=== PATIENT | female | born 1955 | race Caucasian/White ===

== ENCOUNTER 2019-05-20 17:13 | Emergency (ER) | payer MEDICARE, MEDICAID ==
[~2019-05-20] VITALS: Ht 152.4 cm; Wt 90.9 kg
[2019-05-20 17:21] VITALS: Ht 152.4 cm; Wt 90.9 kg
[2019-05-20] MEDS ORDERED: NEURONTIN600 MG PO (17:22)
[2019-05-20] MEDS ORDERED: CLARITIN 10 MG10 MG PO (17:23)
[2019-05-20] MEDS ORDERED: FUROSEMIDE40 MG PO (17:23)
[2019-05-20] MEDS ORDERED: ZYPREXA10 MG PO (17:23)
[2019-05-20] MEDS ORDERED: TOPROL XL100 MG PO (17:24)
[2019-05-20] MEDS ORDERED: BACLOFEN20 M1 (17:24)
[2019-05-20] MEDS ORDERED: SYNTHROID125 MCG PO (17:24)
[2019-05-20] MEDS ORDERED: NORVASC10 MG PO (17:25)
[2019-05-20] MEDS ORDERED: ELIQUIS5 MG PO (17:25)
[2019-05-20] MEDS ORDERED: METOPROLOL-HCT1 EACH PO (17:25)
[2019-05-20 18:16] LABS: APPEARANCE CLEAR (CLEAR); BILIRUBIN NEGATIVE (NEGATIVE); COLOR YELLOW (YELLOW); GLUCOSE NEGATIVE (NEGATIVE); KETONE NEGATIVE (NEGATIVE); NITRITE NEGATIVE (NEGATIVE); PROTEIN TRACE mg/dL (NEGATIVE); UROBILINOGEN NORMAL (NORMAL)
[2019-05-20 18:18] LABS: BASOPHILS 0.6 % (0-2); EOSINOPHILS 2.4 % (0-7); HEMOGLOBIN 13.8 g/dL (12-16); IMMATURE GRANULOCYTES 0.2 % (0-5); LYMPHOCYTES 18.8 % (15-50); MCH 27.7 pg (26.0-34.0); MCHC 31.4 g/dL (31.0-37.0); MCV 88.4 fL (80.0-100.0); MEAN PLATELET VOLUME 10.4 fL (7.4-10.4); MONOCYTES 10.9 % (2-11); NEUTROPHILS 67.1 % (40-80); PLATELET COUNT 204 10x3/uL (130-400); RBC 4.98 10x6/uL (4.00-5.40); RDW 14.4 % (11.5-14.5); WBC 8.8 10x3/uL (4.8-10.8)
[2019-05-20 18:19] LABS: UDS - AMPHET NEGATIVE QUAL (NEGATIVE); UDS - BARB NEGATIVE QUAL (NEGATIVE); UDS - BENZO NEGATIVE QUAL (NEGATIVE); UDS - COCAINE NEGATIVE QUAL (NEGATIVE); UDS - OPIATE NEGATIVE QUAL (NEGATIVE); UDS - PCP NEGATIVE QUAL (NEGATIVE); UDS - THC POSITIVE QUAL (NEGATIVE)
[2019-05-20 18:33] LABS: APTT 25.9 SECONDS (22.8-39.4); INR 1.17 (0.85-1.17); PROTIME 14.4 SECONDS (11.6-15.0)
[2019-05-20 18:55] LABS: ALBUMIN 3.5 g/dL (3.4-5.0); ALKALINE PHOSPHATASE 98 U/L (46-116); ALT (SGPT) 34 U/L (10-68); BILIRUBIN - TOTAL 0.31 mg/dL (0.2-1.3); CALC OSMOLALITY 287 mosm/kg (275-300); CALCIUM 8.9 mg/dL (8.5-10.1); CARBON DIOXIDE 31.6 mmol/L (21.0-32.0); CHLORIDE - SERUM 105 mmol/L (98-107); CKMB 0.6 U/L (0.0-3.6); CREATINE KINASE 58 UL (21-215); CREATININE - SERUM 1.3 mg/dL (0.6-1.3); GLUCOSE 106 mg/dL (74-106); MAGNESIUM - SERUM 2.1 mg/dL (1.8-2.4); POTASSIUM - SERUM 4.6 mmol/L (3.5-5.1); PROTEIN - SERUM 7.5 g/dL (6.4-8.2); SODIUM 144 mmol/L (136-145); TROPONIN-I < 0.017 ng/mL (0.000-0.060); UREA NITROGEN 15 mg/dL (7-18); eGFR NON AFRICAN AMERICAN 44 mL/min (90-120)
[2019-05-20 20:19] VITALS: BP 147/70
== END 2019-05-20 21:31 | disposition other institution (70) ==
LOC: EDSEX 17:13 → D.ER 17:13
PROVIDERS: Family Medicine
DX: R41.82 Altered mental status, unspecified (principal)

== ENCOUNTER 2020-02-11 03:29 | Emergency (ER) | payer MEDICARE, MEDICAID ==
[~2020-02-11] VITALS: Ht 172.7 cm; Wt 77.3 kg
[~2020-02-11 03:29] MED LIST: BACLOFEN20 M1; CLARITIN 10 MG10 MG PO; ELIQUIS5 MG PO; FUROSEMIDE40 MG PO; METOPROLOL-HCT1 EACH PO; NEURONTIN600 MG PO; NORVASC10 MG PO; SYNTHROID125 MCG PO; TOPROL XL100 MG PO; ZYPREXA10 MG PO
[2020-02-11 03:30] VITALS: Ht 172.7 cm; Wt 77.3 kg
[2020-02-11 03:55] LABS: BILIRUBIN NEGATIVE (NEGATIVE); GLUCOSE NEGATIVE (NEGATIVE); KETONE SMALL mg/dL (NEGATIVE); NITRITE NEGATIVE (NEGATIVE); SPECIFIC GRAVITY 1.015 (1.005-1.020); UROBILINOGEN NORMAL (NORMAL); WHITE CELLS - URINE 0-5 /hpf (NEGATIVE)
[2020-02-11 03:56] LABS: RED CELLS - URINE 0-5 /hpf (0-5)
[2020-02-11 04:01] LABS: UDS - AMPHET NEGATIVE QUAL (NEGATIVE); UDS - BARB NEGATIVE QUAL (NEGATIVE); UDS - BENZO NEGATIVE QUAL (NEGATIVE); UDS - COCAINE NEGATIVE QUAL (NEGATIVE); UDS - OPIATE POSITIVE QUAL (NEGATIVE); UDS - PCP NEGATIVE QUAL (NEGATIVE); UDS - THC POSITIVE QUAL (NEGATIVE)
[2020-02-11 04:27] LABS: BASOPHILS 0.6 % (0-2); EOSINOPHILS 2.8 % (0-7); HEMATOCRIT 40.6 % (36.0-48.0); HEMOGLOBIN 11.6 g/dL (12-16); IMMATURE GRANULOCYTES 0.1 % (0-5); LYMPHOCYTES 11.6 % (15-50); MCH 24.5 pg (26.0-34.0); MCHC 28.6 g/dL (31.0-37.0); MCV 85.8 fL (80.0-100.0); MEAN PLATELET VOLUME 10.1 fL (7.4-10.4); MONOCYTES 12.3 % (2-11); NEUTROPHILS 72.6 % (40-80); PLATELET COUNT 210 10x3/uL (130-400); RBC 4.73 10x6/uL (4.00-5.40); RDW 16.1 % (11.5-14.5); WBC 7.1 10x3/uL (4.8-10.8)
[2020-02-11 04:36] LABS: APTT 32.4 SECONDS (22.8-39.4); INR 1.67 (0.85-1.17); PROTIME 19.5 SECONDS (11.6-15.0)
[2020-02-11 04:51] LABS: BILIRUBIN - TOTAL 0.73 mg/dL (0.2-1.3); CALC OSMOLALITY 271 mosm/kg (275-300); CALCIUM 8.3 mg/dL (8.5-10.1); CHLORIDE - SERUM 98 mmol/L (98-107); CKMB 62.5 U/L (0.0-3.6); CREATININE - SERUM 1.7 mg/dL (0.6-1.3); GLUCOSE 108 mg/dL (74-106); PROTEIN - SERUM 7.2 g/dL (6.4-8.2); SODIUM 133 mmol/L (136-145); THYROID STIMULATING HORMONE 0.73 uIU/mL (0.36-3.74); UREA NITROGEN 27 mg/dL (7-18); eGFR NON AFRICAN AMERICAN 32 mL/min (90-120)
[2020-02-11 04:58] LABS: ALKALINE PHOSPHATASE 110 U/L (30-120); ALT (SGPT) 46 U/L (10-68); CREATINE KINASE 5093 UL (21-215); POTASSIUM - SERUM 4.4 mmol/L (3.5-5.1); TROPONIN-I < 0.017 ng/mL (0.000-0.060)
[2020-02-11 09:16] VITALS: BP 132/68
[2020-02-12] MEDS ORDERED: BENADRYL25 MG PO (15:56)
== END 2020-02-11 09:17 | disposition home or self-care (01) ==
LOC: D.ER 03:29
PROVIDERS: Family Medicine
DX: N17.9 Acute kidney failure, unspecified (principal); E86.0 Dehydration; T50.905A Adverse effect of unspecified drugs, medicaments and biological substances, initial encounter; M62.82 Rhabdomyolysis

== ENCOUNTER 2020-02-12 12:31 | Inpatient (IN) | payer MEDICARE, MEDICAID ==
[~2020-02-12] VITALS: Ht 172.7 cm; Wt 88.5 kg
[~2020-02-12 12:31] MED LIST changes: -BACLOFEN20 M1; +BACLOFEN20 M1 PO
[2020-02-12 13:15] VITALS: BP 138/90
[2020-02-12 14:12] LABS: UDS - AMPHET NEGATIVE QUAL (NEGATIVE); UDS - BARB NEGATIVE QUAL (NEGATIVE); UDS - BENZO NEGATIVE QUAL (NEGATIVE); UDS - COCAINE NEGATIVE QUAL (NEGATIVE); UDS - OPIATE POSITIVE QUAL (NEGATIVE); UDS - PCP NEGATIVE QUAL (NEGATIVE); UDS - THC NEGATIVE QUAL (NEGATIVE)
[2020-02-12 14:46] LABS: BASOPHILS 0.2 % (0-2); EOSINOPHILS 0.1 % (0-7); HEMOGLOBIN 12.1 g/dL (12-16); IMMATURE GRANULOCYTES 0.2 % (0-5); LYMPHOCYTES 12.4 % (15-50); MCH 24.7 pg (26.0-34.0); MCHC 28.8 g/dL (31.0-37.0); MCV 85.7 fL (80.0-100.0); MEAN PLATELET VOLUME 10.3 fL (7.4-10.4); MONOCYTES 13.1 % (2-11); PLATELET COUNT 218 10x3/uL (130-400); RDW 16.6 % (11.5-14.5); WBC 8.7 10x3/uL (4.8-10.8)
[2020-02-12 14:53] LABS: INR 1.41 (0.85-1.17); PROTIME 17.1 SECONDS (11.6-15.0)
[2020-02-12 14:54] LABS: CALC OSMOLALITY 284 mosm/kg (275-300); CALCIUM 8.4 mg/dL (8.5-10.1); CARBON DIOXIDE 31.9 mmol/L (21.0-32.0); CHLORIDE - SERUM 102 mmol/L (98-107); GLUCOSE 109 mg/dL (74-106); POTASSIUM - SERUM 4.1 mmol/L (3.5-5.1); SODIUM 140 mmol/L (136-145); UREA NITROGEN 27 mg/dL (7-18); eGFR NON AFRICAN AMERICAN 18 mL/min (90-120)
[2020-02-12 15:06] LABS: CREATININE - SERUM 2.8 mg/dL (0.6-1.3)
[2020-02-12 15:28] LABS: ALBUMIN 3.1 g/dL (3.4-5.0); ALKALINE PHOSPHATASE 116 U/L (30-120); BILIRUBIN - TOTAL 0.59 mg/dL (0.2-1.3); PROTEIN - SERUM 7.2 g/dL (6.4-8.2)
[2020-02-12 15:32] LABS: ALT (SGPT) 410 U/L (10-68); CKMB 16.6 U/L (0.0-3.6); CREATINE KINASE 4358 UL (21-215)
[2020-02-12] MEDS ORDERED: BENADRYL25 MG PO (15:56)
[2020-02-12 16:00] VITALS: BP 177/104
[2020-02-12 16:38] VITALS: BP 159/102; BMI 29.7
[2020-02-12 20:00] VITALS: BP 154/94
--- NOTE | 2020-02-12 20:10 | NUR ---
AROUSES TO VERBAL STIMULI. CONTINUES TO APPEAR DROWSY. ANSWERS QUESTIONS APPROPRIATELY. IV TO RFA INTACT WITHOUT REDNESS OR EDEMA NOTED. O2 @ 4L PER NC ON. NO DISTRESS NOTED. SPO2 @ 96 %. SR UP X 2. CL IN REACH
[2020-02-13] VITALS: BP 160/81
--- NOTE | 2020-02-13 02:35 | NUR ---
I have reviewed this patient and I concur with the Shift Assessment completed by the Licensed Practical Nurse today this shift.
[2020-02-13 04:00] VITALS: BP 130/100
--- NOTE | 2020-02-13 08:00 | NUR ---
PT RESTING IN BED. ALERT AND ORIENTED TO PERSON AND PLACE AT THIS TIME. DENIES PAIN AT THIS TIME. IV TO RIGHT FOREARM WITH D5LR @ 100ML/HR INFUSING VIA PUMP. SITE WITHOUT REDNESS OR EDEMA. DENIES FURTHER NEEDS AT THIS TIME. CL WITHIN REACH. ENCOURAGED TO CALL WITH NEEDS. CONTINUE POC
[2020-02-13 09:05] VITALS: BP 170/88
[2020-02-13 10:18] LABS: BASOPHILS 0.5 % (0-2); EOSINOPHILS 0.9 % (0-7); HEMATOCRIT 43.3 % (36.0-48.0); HEMOGLOBIN 12.2 g/dL (12-16); IMMATURE GRANULOCYTES 0.6 % (0-5); LYMPHOCYTES 9.6 % (15-50); MCH 24.3 pg (26.0-34.0); MCHC 28.2 g/dL (31.0-37.0); MCV 86.3 fL (80.0-100.0); MEAN PLATELET VOLUME 10.2 fL (7.4-10.4); MONOCYTES 10.3 % (2-11); NEUTROPHILS 78.1 % (40-80); PLATELET COUNT 204 10x3/uL (130-400); RBC 5.02 10x6/uL (4.00-5.40); RDW 16.6 % (11.5-14.5); WBC 8.1 10x3/uL (4.8-10.8)
[2020-02-13 11:12] LABS: ALBUMIN 3.1 g/dL (3.4-5.0); ALKALINE PHOSPHATASE 111 U/L (30-120); ALT (SGPT) 411 U/L (10-68); BILIRUBIN - TOTAL 0.83 mg/dL (0.2-1.3); CALCIUM 8.7 mg/dL (8.5-10.1); CARBON DIOXIDE 36.3 mmol/L (21.0-32.0); CHLORIDE - SERUM 100 mmol/L (98-107); GLUCOSE 119 mg/dL (74-106); MAGNESIUM - SERUM 1.8 mg/dL (1.8-2.4); PROTEIN - SERUM 7.4 g/dL (6.4-8.2); SODIUM 143 mmol/L (136-145)
[2020-02-13 11:13] LABS: CALC OSMOLALITY 286 mosm/kg (275-300); CREATINE KINASE 4533 UL (21-215); CREATININE - SERUM 1.4 mg/dL (0.6-1.3); POTASSIUM - SERUM 3.1 mmol/L (3.5-5.1); UREA NITROGEN 15 mg/dL (7-18); eGFR NON AFRICAN AMERICAN 40 mL/min (90-120)
[2020-02-13 11:14] LABS: CKMB 6.5 U/L (0.0-3.6)
[2020-02-13 12:32] VITALS: BMI 29.6
[2020-02-13 12:54] VITALS: BP 169/84
[2020-02-13 16:36] VITALS: BP 176/88
--- NOTE | 2020-02-13 20:00 | NUR ---
LYING IN BED. YELLS OUT TO PEOPLE WALKING BY IN HALLWAY. DOESNT USE CALL LIGHT FOR ASSISTANCE. ORIENTED TO SELF ONLY. CONFUSED. JOSIAH ALARM ON. PUREWICK CATH IN PLACE AND DRAINING CLEAR YELLOW URINE. RUE IS RED AND SWOLLEN. GEN EDEMA NOTED. C/O PAIN IN RT HAND 6 ON PAIN SCALE. BBS EXP WHEEZES. O2 @ 4L/NC. TELEMETRY SHOWS SR WITH RATE OF 85. WEAKNESS NOTED TO RUE. D5LR @ 100 MLHR INFUSING IN RT FOREARM. TALKS NONSTOP. SPEECH DIFF TO UNDERSTAND AT TIMES. SR ELEVATED X2. CL IN REACH.
[2020-02-13 20:34] VITALS: BP 162/91
--- NOTE | 2020-02-13 23:54 | NUR ---
TYLENOL GIVEN AT THIS TIME FOR C/O PAIN IN RT FOOT RATING 10. CL IN REACH.
[2020-02-14 00:45] VITALS: BP 163/89
--- NOTE | 2020-02-14 01:07 | NUR ---
LYING IN BED TALKING TO SELF OR PEOPLE NOT PRESENT. HASNT SLEPT TONIGHT. CONFUSED. JOSIAH ALARM ON. NO DISTRESS. SR ELEVATED X2. CL IN REACH.
--- NOTE | 2020-02-14 02:58 | NUR ---
RESTING IN BED WITH EYES CLOSED. RESP NONLABORED. NO DISTRESS. JOSIAH ALARM ON. CL IN REACH.
[2020-02-14 03:03] LABS: BILIRUBIN NEGATIVE (NEGATIVE); GLUCOSE NEGATIVE (NEGATIVE); KETONE NEGATIVE (NEGATIVE); NITRITE NEGATIVE (NEGATIVE); SPECIFIC GRAVITY 1.005 (1.005-1.020); UROBILINOGEN NORMAL (NORMAL)
[2020-02-14 05:36] LABS: BASOPHILS 0.6 % (0-2); EOSINOPHILS 3.4 % (0-7); HEMATOCRIT 41.8 % (36.0-48.0); HEMOGLOBIN 11.7 g/dL (12-16); IMMATURE GRANULOCYTES 0.3 % (0-5); MCH 24.1 pg (26.0-34.0); MCV 86.2 fL (80.0-100.0); MEAN PLATELET VOLUME 10.4 fL (7.4-10.4); MONOCYTES 13.4 % (2-11); NEUTROPHILS 67.3 % (40-80); PLATELET COUNT 220 10x3/uL (130-400); RBC 4.85 10x6/uL (4.00-5.40); RDW 16.9 % (11.5-14.5); WBC 7.1 10x3/uL (4.8-10.8)
[2020-02-14 05:57] VITALS: BP 171/90
[2020-02-14 06:05] LABS: ALBUMIN 2.8 g/dL (3.4-5.0); ALKALINE PHOSPHATASE 101 U/L (30-120); BILIRUBIN - TOTAL 0.99 mg/dL (0.2-1.3); CALCIUM 8.2 mg/dL (8.5-10.1); CARBON DIOXIDE 35.2 mmol/L (21.0-32.0); CHLORIDE - SERUM 98 mmol/L (98-107); GLUCOSE 102 mg/dL (74-106); MAGNESIUM - SERUM 1.6 mg/dL (1.8-2.4); PROTEIN - SERUM 6.5 g/dL (6.4-8.2); SODIUM 141 mmol/L (136-145)
[2020-02-14 06:08] LABS: ALT (SGPT) 301 U/L (10-68); CALC OSMOLALITY 279 mosm/kg (275-300); CREATININE - SERUM 0.8 mg/dL (0.6-1.3); POTASSIUM - SERUM 3.8 mmol/L (3.5-5.1); UREA NITROGEN 10 mg/dL (7-18); eGFR NON AFRICAN AMERICAN 77 mL/min (90-120)
[2020-02-14 09:18] VITALS: BP 155/89
--- NOTE | 2020-02-14 10:36 | NUR ---
I have reviewed this patient and I concur with the Shift Assessment completed by the Licensed Practical Nurse today this shift.
[2020-02-14 13:21] VITALS: BP 156/87
--- NOTE | 2020-02-14 15:53 | NUR ---
OT NOTE: PT COMPLETED SUPINE TO SIT WITH MAX A. PT COMPLETED RUE AAROM TOLERATED. PT COMPLETED EOB SITTING WITH MIN A. PT COMPLETED FACE HYGIENE WITH SET UP. [phone] THANK YOU,RUBI JOSEPH
[2020-02-14 16:44] VITALS: BP 163/84
--- NOTE | 2020-02-14 19:25 | NUR ---
LYING IN BED TALKING TO SELF. YELLING OUT TO PEOPLE WALKING BY. CONFUSED. ALERT AND ORIENTED TO SELF ONLY. RESP IRREG, SLIGHTLY LABORED. TAKES O2 OFF. O2 @ 4L/NC. TELEMETRY SHOWS 77. PUREWICK CATH IN PLACE AND DRAINING DARK CLEAR YELLOW URINE. ABD IS DISTENDED. EDEMA NOTED TO RUE AND BLE. D5LR @ 100 MLHR INFUSING IN RT ARM WHICH IS ELEVATED ON PILLOW. JOSIAH ALARM ON FOR PT SAFETY. GEN WEAKNESS NOTED. RUE IS VERY WEAK. SR ELEVATED X2. CL IN REACH.
[2020-02-14 20:54] VITALS: BP 156/85
[2020-02-15 00:02] VITALS: BP 164/97
--- NOTE | 2020-02-15 02:03 | NUR ---
AWAKE. LYING IN BED WATCHING TV. CONFUSED BUT COOPERATIVE. NO DISTRESS. CL IN REACH. JOSIAH ALARM ON.
--- NOTE | 2020-02-15 02:54 | NUR ---
CONFUSED. YELLING OUT. "SOMEBODY HELP ME." REPORTS SHE NEEDS TO URINATE. ATTEMPTED TO EXPLAIN THAT SHE HAS PUREWICK. CL IN REACH. JOSIAH ALARM ON.
[2020-02-15 04:45] VITALS: BP 175/99
[2020-02-15 05:04] LABS: BASOPHILS 0.4 % (0-2); EOSINOPHILS 6.6 % (0-7); HEMATOCRIT 44.5 % (36.0-48.0); HEMOGLOBIN 12.7 g/dL (12-16); IMMATURE GRANULOCYTES 0.3 % (0-5); LYMPHOCYTES 11.4 % (15-50); MCH 24.4 pg (26.0-34.0); MCHC 28.5 g/dL (31.0-37.0); MCV 85.4 fL (80.0-100.0); MEAN PLATELET VOLUME 10.5 fL (7.4-10.4); MONOCYTES 11.4 % (2-11); NEUTROPHILS 69.9 % (40-80); PLATELET COUNT 217 10x3/uL (130-400); RBC 5.21 10x6/uL (4.00-5.40); RDW 16.9 % (11.5-14.5); WBC 6.7 10x3/uL (4.8-10.8)
[2020-02-15 05:30] LABS: ALBUMIN 2.9 g/dL (3.4-5.0); ANION GAP 8.1 mmol/L (8-16); CALCIUM 8.6 mg/dL (8.5-10.1); CARBON DIOXIDE 36.3 mmol/L (21.0-32.0); MAGNESIUM - SERUM 1.9 mg/dL (1.8-2.4); POTASSIUM - SERUM 3.4 mmol/L (3.5-5.1); PROTEIN - SERUM 7.3 g/dL (6.4-8.2)
--- NOTE | 2020-02-15 08:33 | NUR ---
PATIENT AWAKE AND ALERT. ORIENTED X 3. UNSURE OF SITUATION. KNOWS SISTERS NAMES AND STATES THAT I CAN SHARE INFORMATION WITH THEM. KNOWS THE PRESIDENT. CL IN REACH. TM
[2020-02-15 08:54] VITALS: BP 171/98
[2020-02-15 11:37] LABS: CREATINE KINASE 921 UL (21-215)
[2020-02-15 11:41] LABS: CKMB 1.1 U/L (0.0-3.6)
[2020-02-15 13:48] VITALS: BP 175/99
--- NOTE | 2020-02-15 13:54 | NUR ---
OT NOTE: PT DOING MUCH BETTER TODAY. BED MOB WITH MIN/MOD ASSIST WITH EXT TIME AND SUPPORT FOR R HAND. EDEMA IN R UE MUCH IMPROVED TODAY. PT SHOWING INCREASED MOVEMENT IN R UE, MADHURI FINGERS. PERFORMED SITTING BALANCE ON EOB WITHOUT ASSIST; PERFORMED WT BEARING ACT WITH MIN ASSIST FOR R UE; SIT TO STAND WITH WALKER AND MIN ASSIST X 2; ABLE TO SIDE STEP TO L AND R WITH ASSIST FOR WALKER MGMT, ASSIST FOR KEEPING R HAND IN PLACE, AND ASSIST FOR BALANCE. ABLE TO WASH FACE WITH SET UP; FEEDING WITH SET UP WITH POOR APPETITE. BED MOB BACK TO BED WITH MOD ASSIST. ANASTACIO DELATORRE, OTR/L [phone]
--- NOTE | 2020-02-15 14:24 | NUR ---
OT NOTE: PT COMPLETED SUPINE TO SIT WITH MOD A. PT COMPLETED STANDING WITH MIN/MOD A. PT COMPLETED LB HYGIENE WITH MAX A. PT REQUIRED MIN A WITH HAIR GROOMING AT EOB. [phone] THANK YOU,RUBI JOSEPH
[2020-02-15 17:28] VITALS: BP 165/103
[2020-02-15 20:00] VITALS: BP 177/100
[2020-02-16 04:00] VITALS: BP 173/102
[2020-02-16 04:36] LABS: BASOPHILS 0.5 % (0-2); EOSINOPHILS 6.3 % (0-7); HEMATOCRIT 45.1 % (36.0-48.0); HEMOGLOBIN 12.8 g/dL (12-16); IMMATURE GRANULOCYTES 0.6 % (0-5); LYMPHOCYTES 10.3 % (15-50); MCHC 28.4 g/dL (31.0-37.0); MCV 84.5 fL (80.0-100.0); MEAN PLATELET VOLUME 10.2 fL (7.4-10.4); MONOCYTES 12.7 % (2-11); NEUTROPHILS 69.6 % (40-80); PLATELET COUNT 250 10x3/uL (130-400); RBC 5.34 10x6/uL (4.00-5.40); RDW 16.8 % (11.5-14.5)
[2020-02-16 04:50] LABS: WBC 8.6 10x3/uL (4.8-10.8)
[2020-02-16 05:18] LABS: ALBUMIN 2.8 g/dL (3.4-5.0); BILIRUBIN - TOTAL 1.02 mg/dL (0.2-1.3); CALCIUM 8.9 mg/dL (8.5-10.1); CARBON DIOXIDE 33.9 mmol/L (21.0-32.0); MAGNESIUM - SERUM 1.8 mg/dL (1.8-2.4); PROTEIN - SERUM 7.2 g/dL (6.4-8.2)
[2020-02-16 05:22] LABS: ANION GAP 9.7 mmol/L (8-16); POTASSIUM - SERUM 3.6 mmol/L (3.5-5.1)
[2020-02-16 09:31] VITALS: BP 174/109
[2020-02-16 11:56] LABS: CREATINE KINASE 544 UL (21-215)
[2020-02-16 11:57] LABS: CKMB 1.7 U/L (0.0-3.6)
--- NOTE | 2020-02-16 12:40 | NUR ---
OT NOTE: PT PERFORMED WELL TODAY. MIN/MOD ASSIST FOR ROLLING SIDE TO SIDE; MIN ASSIST AND EXT TIME FOR SUPINE TO SIT; MAX ASSIST FOR TOILET HYGIENE..PT INCONT OF BOWEL. REMOVED PUREWIK AND PLACED BRIEF ON PT SO THAT SHE COULD SIT UP IN CHAIR; TRANSFER WITH WALKER WITH MOD ASSIST AND 2 (MAX ASSIST TO KEEP R HAND ON WALKER)..INCREASED EDEMA NOTED IN R HAND, HOWEVER, PROBABLY DUE TO ARM HANGING OFF BED UPON FIRST ENTERING ROOM.. WHILE UP IN CHAIR, PT EDUCATED ON ROM EXS FOR R UE AND B LES. ANASTACIO DELATORRE, OTR/L [phone]
[2020-02-16 13:08] LABS: INR 1.5 (0.85-1.17); PROTIME 17.9 SECONDS (11.6-15.0)
[2020-02-16 13:19] LABS: APTT 31.5 SECONDS (22.8-39.4)
[2020-02-16 13:29] VITALS: BP 172/92
--- NOTE | 2020-02-16 14:25 | NUR ---
REHAB PRESCREENING Rehab referral received and chart reviewed. This patient is very low level at this time. Rehab will continue to follow for progression with therapy in order to assess admission criteria. Thank you for this referral! Chayito Conley, [facility] Rehab PD
[2020-02-16 16:03] VITALS: Ht 172.7 cm; Wt 88.5 kg
--- NOTE | 2020-02-16 17:05 | NUR ---
ATTEMPT TO REACH CHAN WITH SENIOR HELP TO VERIFY PATIENTS MEDS. ALSO TRIED TO VERIFY MEDICATIONS WITH DR [facility] AT [phone]. PATIENT DOES NOT KNOW HER MEDICATIONS.
[2020-02-16 17:50] VITALS: BP 123/105
[2020-02-16 20:00] VITALS: BP 148/95
[2020-02-17] VITALS: BP 156/89
[2020-02-17 04:00] VITALS: BP 171/95
[2020-02-17 04:58] LABS: HEMATOCRIT 53.9 % (36.0-48.0); MCH 24.5 pg (26.0-34.0); MCHC 28.9 g/dL (31.0-37.0); MCV 84.7 fL (80.0-100.0); RBC 6.36 10x6/uL (4.00-5.40); RDW 18.7 % (11.5-14.5); WBC 7.1 10x3/uL (4.8-10.8)
[2020-02-17 05:12] LABS: HEMOGLOBIN 15.6 g/dL (12-16); PLATELET COUNT 425 10x3/uL (130-400)
[2020-02-17 05:29] LABS: ALBUMIN 3.1 g/dL (3.4-5.0); ALKALINE PHOSPHATASE 104 U/L (30-120); ALT (SGPT) 138 U/L (10-68); BILIRUBIN - TOTAL 1.19 mg/dL (0.2-1.3); CALC OSMOLALITY 270 mosm/kg (275-300); CALCIUM 8.8 mg/dL (8.5-10.1); CARBON DIOXIDE 30.1 mmol/L (21.0-32.0); CHLORIDE - SERUM 97 mmol/L (98-107); GLUCOSE 96 mg/dL (74-106); MAGNESIUM - SERUM 1.9 mg/dL (1.8-2.4); PROTEIN - SERUM 7.5 g/dL (6.4-8.2); SODIUM 136 mmol/L (136-145); UREA NITROGEN 11 mg/dL (7-18); eGFR NON AFRICAN AMERICAN 59 mL/min (90-120)
[2020-02-17 05:31] LABS: CREATINE KINASE 321 UL (21-215); POTASSIUM - SERUM 4.8 mmol/L (3.5-5.1)
[2020-02-17 05:37] LABS: CKMB 1.1 U/L (0.0-3.6)
--- NOTE | 2020-02-17 07:50 | NUR ---
PT RESTING QUIETLY IN BED. O2 @ 2L NC IN PLACE. DENIES PAIN AT THIS TIME. NO IV ACCESS AT THIS TIME. WILL CONTACT VASCULAR NURSING FOR IV PLACEMENT. PT IS INCONTINENT OF URINE. DENIES FURTHER NEEDS AT THIS TIME. CL WITHIN REACH. ENCOURAGED TO CALL WITH NEEDS. CONTINUE POC
[2020-02-17 07:59] VITALS: BP 170/93
[2020-02-17] MEDS ORDERED: METOPROLOL TART50 MG PO (10:01)
[2020-02-17] MEDS ORDERED: PEPCID AC20 MG PO (10:06)
[2020-02-17] MEDS ORDERED: FOLIC ACID1 MG PO (10:06)
[2020-02-17] MEDS ORDERED: SEROQUEL100 MG PO (10:08)
[2020-02-17 10:42] LABS: EOSINOPHILS 5 % (0-7); LYMPHOCYTES 19 % (15-50); MONOCYTES 7 % (2-11); NEUTROPHILS 68 % (40-80); PLATELET ESTIMATE INCREASED; ROULEAUX OCC
--- NOTE | 2020-02-17 11:12 | NUR ---
SPOKE WITH CHAN SALINAS APN REGARDING LOSS OF IV ACCESS. SHE STATES OK TO LEAVE IV OUT
[2020-02-17 12:02] VITALS: BP 160/97
--- NOTE | 2020-02-17 14:19 | NUR ---
OT NOTE: PT COMPLETED BED MOB TASKS WITH MIN/MOD A. PT REQUIRED MAX A FOR RUE MANAGEMENT DURING BED TO CHAIR TRANSFER. PT REQUIRED MAX A WITH LB HYGIENE . (PM) PT COMPLETED RUE AAROM TOLERATED. RUE POSITIONING TO DECREASE EDEMA. PT REQUIRED MAX A WITH LB HYGIENE TASKS. PT IS COOPERATIVE. [phone]
[2020-02-17 15:39] VITALS: BP 163/97
--- NOTE | 2020-02-17 19:40 | NUR ---
LAYING IN BED WITH HOB ELEVATED. ALERT AND ORIENTED TO SELF. CONFUSED. INCONT OF B/B. PERICARE PERFORMED. PUREWICK APPLIED. NO IV ACCESS. RUE IS VERY WEAK, ALMOST FLACCID AND SWOLLEN. ABD IS DISTENDED. JOSIAH ALARM ON FOR PT SAFETY. RESP EVEN AND NONLABORED. O2 @ 2LNC. NO DISTRESS. DENIES PAIN. SR ELEVATED X2. CL IN REACH.
[2020-02-17 20:00] VITALS: BP 156/95
[2020-02-18] VITALS: BP 168/101
--- NOTE | 2020-02-18 01:12 | NUR ---
RESTING QUIETLY WITH EYES CLOSED. RESP NONLABORED. O2 @ 2L/NC. NO DISTRESS. HAS BEEN RESTING WELL SO FAR THIS SHIFT. SR ELEVATED X2. CL IN REACH. JOSIAH ALARM ON.
[2020-02-18 04:00] VITALS: BP 159/99
[2020-02-18 05:33] LABS: BASOPHILS 0.3 % (0-2); EOSINOPHILS 6.1 % (0-7); HEMATOCRIT 44.2 % (36.0-48.0); HEMOGLOBIN 12.9 g/dL (12-16); IMMATURE GRANULOCYTES 0.1 % (0-5); LYMPHOCYTES 11.7 % (15-50); MCH 24.6 pg (26.0-34.0); MCHC 29.2 g/dL (31.0-37.0); MCV 84.2 fL (80.0-100.0); MEAN PLATELET VOLUME 10.3 fL (7.4-10.4); MONOCYTES 11.7 % (2-11); NEUTROPHILS 70.1 % (40-80); RBC 5.25 10x6/uL (4.00-5.40); RDW 17.4 % (11.5-14.5)
[2020-02-18 05:38] LABS: PLATELET COUNT 247 10x3/uL (130-400); WBC 9.3 10x3/uL (4.8-10.8)
[2020-02-18 05:55] LABS: BILIRUBIN - TOTAL 0.83 mg/dL (0.2-1.3); CALCIUM 8.6 mg/dL (8.5-10.1); CARBON DIOXIDE 32.8 mmol/L (21.0-32.0); MAGNESIUM - SERUM 2.2 mg/dL (1.8-2.4); PROTEIN - SERUM 6.8 g/dL (6.4-8.2)
[2020-02-18 05:56] LABS: ANION GAP 10.8 mmol/L (8-16); CREATININE - SERUM 1.4 mg/dL (0.6-1.3); POTASSIUM - SERUM 3.6 mmol/L (3.5-5.1)
--- NOTE | 2020-02-18 07:45 | NUR ---
PT SITTING UP IN BED WATCHING TV. O2 @ 2L NC IN PLACE. PT DENIES PAIN AT THIS TIME. RIGHT SIDED WEAKNESS NOTED. DENIES FURTHER NEEDS AT THIS TIME. CL WITHIN REACH. ENCOURAGED TO CALL WITH NEEDS. CONTINUE POC
[2020-02-18 08:00] VITALS: BP 154/92
[2020-02-18 12:05] VITALS: BP 162/92
[2020-02-18 16:00] VITALS: BP 161/98
--- NOTE | 2020-02-18 19:00 | NUR ---
BEDSIDE REPORT RECEIVED AND CARE OF PT ASSUMED. PT LYING IN LOW ZAZUETA'S POSITION. NO IV AT THIS TIME. O2 IN USE VIA NC AT 2L. BED ALARM IN USE. WILL MONITOR FOR NEEDS.
--- NOTE | 2020-02-18 19:28 | NUR ---
HS MEDICATION GIVEN TO INCLUDE TYLENOL PO PER REQUEST, PER PRN ORDER. WILL CONTINUE TO MONITOR FOR NEEDS.
[2020-02-18 19:43] VITALS: BP 151/93
[2020-02-19] VITALS: BP 163/91
--- NOTE | 2020-02-19 02:00 | NUR ---
PT BATHED AND ALL LINENS AND GOWN CHANGED.
--- NOTE | 2020-02-19 03:30 | NUR ---
PT HAS NOT VOIDED THIS SHIFT AND HAS HAD NO OUTPUT VIA PUREWICK EXTERNAL CATHETER. BLADDER SCAN WAS INCONCLUSIVE, BUT ABDOMEN IS DISTENDED AND PT REPORTS FEELING LIKE SHE NEEDS TO URINATE, BUT UNABLE TO. IN AND OUT CATH PERFORMED AND YEILDED 3100 MLS OF YELLOW URINE...CLAMPED EVERY 500 ML FOR A FEW MINUTES. PT REPORTS FEELING MUCH BETTER AND ABDOMEN LESS DISTENDED.
--- NOTE | 2020-02-19 03:30 | NUR ---
CHANGED APPRESOLINE FROM IV TO PO PT WITHOUT IV ACCESS AT THIS TIME, AND IN NEED OF PRN HTN MEDICATION PER PRN ORDER.
--- NOTE | 2020-02-19 03:55 | NUR ---
GAVE APPRESOLINE PER PRN ORDER FOR ELEVATED BLOOD PRESSURE OF 170/97. WILL CONTINUE TO MONITOR FOR EFFECTIVENESS.
[2020-02-19 04:00] VITALS: BP 170/97
[2020-02-19 07:21] LABS: BASOPHILS 0.8 % (0-2); EOSINOPHILS 7.4 % (0-7); HEMATOCRIT 41.5 % (36.0-48.0); HEMOGLOBIN 12.1 g/dL (12-16); IMMATURE GRANULOCYTES 0.1 % (0-5); LYMPHOCYTES 14.2 % (15-50); MCH 24.4 pg (26.0-34.0); MCHC 29.2 g/dL (31.0-37.0); MCV 83.8 fL (80.0-100.0); MEAN PLATELET VOLUME 10.7 fL (7.4-10.4); MONOCYTES 11.3 % (2-11); NEUTROPHILS 66.2 % (40-80); PLATELET COUNT 213 10x3/uL (130-400); RBC 4.95 10x6/uL (4.00-5.40); RDW 17.3 % (11.5-14.5); WBC 7.3 10x3/uL (4.8-10.8)
[2020-02-19 07:38] LABS: ALBUMIN 2.6 g/dL (3.4-5.0); BILIRUBIN - TOTAL 0.83 mg/dL (0.2-1.3); CALCIUM 8.6 mg/dL (8.5-10.1); CARBON DIOXIDE 36.1 mmol/L (21.0-32.0); CREATININE - SERUM 1.4 mg/dL (0.6-1.3); POTASSIUM - SERUM 3.1 mmol/L (3.5-5.1); PROTEIN - SERUM 6.5 g/dL (6.4-8.2)
--- NOTE | 2020-02-19 07:48 | NUR ---
PT RESTING IN BED WATCHNIG TV. O2 @ 2L NC IN PLACE. PT DENIES PAIN AT THIS TIME. PT DENIES FURTHER NEEDS AT THIS TIME. CL WITHIN REACH. ENCOURAGED TO CALL WITH NEEDS. CONTINUE POC
[2020-02-19 08:03] VITALS: BP 153/84
--- NOTE | 2020-02-19 10:53 | NUR ---
PT SITTING UP IN CHAIR AT BEDSIDE. NO ACUTE DISTRESS NOTED AT THIS TIME. TALKING ON PHONE WITH FAMILY. JOSIAH CHAIR ALARM IN PLACE AND ON. DENIES FURTHER NEEDS AT THIS TIME. CL WITHIN REACH. ENCOURAGED TO CALL WITH NEEDS
--- NOTE | 2020-02-19 12:45 | NUR ---
ASSISTED PT FROM BR TO BED. LARGE SOFT FORMED BM NOTED. PT REQUIRE ASSIST X [address]ER. O2 IN PLACE. PT [place]UBH[place] WELL. DENIES FURTHER NEEDS AT THIS TIME. CL WITHIN REACH. ENCOURAGED TO CALL WITH NEEDS.
[2020-02-19 13:03] VITALS: BP 149/87
--- NOTE | 2020-02-19 14:30 | NUR ---
PT RESTING IN BED WATCHING TV. PT VOIDED AT THIS TIME. 600ML URINE DRAINED THROUGH PUREWICK AT THIS TIME. PT DENIES FURTHER NEEDS AT THIS TIME. CL WITHIN REACH. ENCOURAGED TO CALL WITH NEEDS.
[2020-02-19 17:32] VITALS: BP 150/87
--- NOTE | 2020-02-19 19:00 | NUR ---
BEDSIDE REPORT RECEIVED AND CARE OF PT ASSUMED. PT LYING IN MID ZAZUETA'S POSITION WITH EYES CLOSED. TELEMETRY IN PLACE PER ORDER. O2 IN USE VIA NC AT 2L. WILL MONITOR FOR NEEDS.
[2020-02-19 20:00] VITALS: BP 164/85
--- NOTE | 2020-02-19 20:47 | NUR ---
HS MEDICATIONS GIVEN TO INCLUDE TYLENOL PO PER REQUEST FOR PAIN. WILL CONTINUE TO MONITOR FOR NEEDS.
[2020-02-20] VITALS: BP 143/71
[2020-02-20 04:00] VITALS: BP 174/94
[2020-02-20 06:55] LABS: BASOPHILS 1.1 % (0-2); EOSINOPHILS 7.4 % (0-7); HEMATOCRIT 40.7 % (36.0-48.0); HEMOGLOBIN 12.1 g/dL (12-16); IMMATURE GRANULOCYTES 0.5 % (0-5); LYMPHOCYTES 15.1 % (15-50); MCH 24.5 pg (26.0-34.0); MCHC 29.7 g/dL (31.0-37.0); MCV 82.4 fL (80.0-100.0); MEAN PLATELET VOLUME 10.8 fL (7.4-10.4); MONOCYTES 9.3 % (2-11); NEUTROPHILS 66.6 % (40-80); PLATELET COUNT 239 10x3/uL (130-400); RBC 4.94 10x6/uL (4.00-5.40); RDW 17.1 % (11.5-14.5); WBC 7.9 10x3/uL (4.8-10.8)
[2020-02-20 07:27] LABS: ALBUMIN 2.8 g/dL (3.4-5.0); BILIRUBIN - TOTAL 0.96 mg/dL (0.2-1.3); CALCIUM 8.5 mg/dL (8.5-10.1); CARBON DIOXIDE 31.9 mmol/L (21.0-32.0); MAGNESIUM - SERUM 1.8 mg/dL (1.8-2.4); PROTEIN - SERUM 6.4 g/dL (6.4-8.2)
[2020-02-20 07:32] LABS: ANION GAP 12.3 mmol/L (8-16); POTASSIUM - SERUM 4.2 mmol/L (3.5-5.1)
--- NOTE | 2020-02-20 07:59 | NUR ---
SHE IS ALART, SETTING UP IN THE CHAIR. SHE IS WALKING TO THE Bathroom by herself. THE CALL LIHGT IS WITHIN REACH. HER RIGHT HAND IS SWOLLEN, IT IS ELEVATED ON A PILLOW.
[2020-02-20 08:02] VITALS: BP 149/84
--- NOTE | 2020-02-20 10:54 | EC ---
PATIENT:JULIO RUDOLPH ANN DATE OF SERVICE: 02/13/20 SEX: F MEDICAL RECORD: [id number] DATE OF : [birth year] LOCATION:[facility] AGE OF PATIENT: 64 ADMISSION DATE: 02/13/20 REFERRING PHYSICIAN: INTERPRETING PHYSICIAN: TSERING ARELLANO MD ECHOCARDIOGRAM REPORT ECHO CHARGES 4 ECHO COMPLETE Date: 02/16/20 CLINICAL DIAGNOSIS: DYSPNEA ECHOCARDIOGRAPHIC MEASUREMENTS (adult normal given) AC root (d.<3.7cm) 2.9 cm LV Septum d (<1.2 cm> 1.4 cm Valve Excursion 1.9 cm LV Septum (systole) 1.7 cm Left Atria (s.<4.0cm> 3.3 cm LVPW d(<1.2cm) 1.3 cm RV (d.<2.3cm) 2.6 cm LVPW (sytole) 1.5 cm LV diastole(<5.6CM) 4.4 cm MV E-F(>70mm/sec) cm LV systole 3.2 cm LVOT Diameter 1.8 cm MV exc.(>10mm) cm Est.ejection fraction (50-75%) % DOPPLER: LVIT cm/sec A 70 cm/sec E 33 cm/sec LA cm/sec RVSP 34.7 mmHg LVOT 106 cm/sec AOP1/2T m/s Asc. Ao 128 cm/sec RVOT 71 cm/sec RA cm/sec PA 84 cm/sec AV Gradient Peak 6.5 mmHg AV Mean 3.8 mmHg AV Area 2.5 cm MV Gradient Peak 3.6 mmHg MV Mean 1.9 mmHg MV Area cm COMMENTS: Union Organiser: Sly LOPEZ Pumping Supervisor: 3 Dr. Palencia TAPE# PACS Pericardial Effusion N DATE OF SERVICE: Adequate 2D, color flow imaging, spectral Doppler, and M-Mode. No LVH. LV internal dimensions are normal. Wall motion is normal. EF is greater than or equal to 55%. Aortic valve is tricuspid. No evidence of stenosis by Doppler interrogation. There is trivial AI with color flow imaging. Left atrium is normal. Mitral valve shows no prolapse. Trace MR. Right-sided chambers are grossly normal. Trace TR. ECHOCARDIOGRAM REPORT [id number] JULIO RUDOLPH ANN TRANSINT:[id number] Voice Confirmation ID: [id number] DOCUMENT ID: [id number] TSERING ARELLANO MD at 1054 CC: [id number] DICTATION DATE: 02/16/20 1544 REGISTERED DIETITIAN: 02/16/[address] [facility] [address] [id number]
[2020-02-20 11:45] VITALS: BP 133/82
--- NOTE | 2020-02-20 14:19 | NUR ---
Nutrition follow-up: Diet: Low sodium PO intake ~40% average x last 6 meals labs reviewed Wt: 194# Pt waiting to go to rehab Will continue to provide food choices and honor food preferences. RDN following.
--- NOTE | 2020-02-20 14:21 | NUR ---
OT NOTE: PT PERFORMED WELL..ABLE TO TAKE A FEW STEPS TO TOILET; TOILETING WITH MOD ASSIST FOR HYGIENE; MIN ASSIST WITH FACE HYGIENE; TRANSFERS WITH MIN/MOD ASSIST AND USE OF WALKER. CONTINUES TO EXHIBIT DECREASED MOVEMENT IN R UE. EDUCATED IN EXS TO PERFORM WHILE IN BED. ANASTACIO DELATORRE, OTR/L [phone]
--- NOTE | 2020-02-20 15:15 | NUR ---
OT NOTE: PT UPRIGHT IN CHAIR. PT COMPLETED SIT TO STAND WITH MIN A. PT COMPLETED HAIR BRUSHING WITH SETUP. PT REQUIRED TOTAL A WITH PONYTAIL. PT COMPLETED FACE/HAND HYGIENE WITH SET UP. PT REQUIRED MOD A WITH RUE HYGIENE. PT COOPERATIVE AND PLEASANT. [phone] THANK YOU,RUBI JOSEPH
[2020-02-20 16:49] VITALS: BP 151/80
--- NOTE | 2020-02-20 19:00 | NUR ---
BEDSIDE REPORT RECEIVED AND CARE OF PT ASSUMED. PT IN RESTROOM AT THIS TIME. NO IV ACCESS. TELEMETRY IN PLACE PER ORDER. WILL MONITOR FOR NEEDS.
--- NOTE | 2020-02-20 20:39 | NUR ---
HS MEDICATIONS GIVEN TO INCLUDE TYLENOL PO PER REQUEST FOR GENERALIZED PAIN. WILL CONTINUE TO MONITOR FOR NEEDS.
[2020-02-20 21:50] VITALS: BP 139/78
[2020-02-21 00:03] VITALS: BP 162/77
[2020-02-21 05:18] LABS: ALBUMIN 2.9 g/dL (3.4-5.0); ANION GAP 12.7 mmol/L (8-16); BILIRUBIN - TOTAL 0.89 mg/dL (0.2-1.3); CALCIUM 8.5 mg/dL (8.5-10.1); CARBON DIOXIDE 30.7 mmol/L (21.0-32.0); MAGNESIUM - SERUM 1.8 mg/dL (1.8-2.4); PROTEIN - SERUM 6.8 g/dL (6.4-8.2)
[2020-02-21 05:20] LABS: POTASSIUM - SERUM 3.4 mmol/L (3.5-5.1)
[2020-02-21 05:24] VITALS: BP 156/81
[2020-02-21 05:33] LABS: BASOPHILS 2.4 % (0-2); EOSINOPHILS 5.2 % (0-7); HEMATOCRIT 39.8 % (36.0-48.0); IMMATURE GRANULOCYTES 4.4 % (0-5); LYMPHOCYTES 15.7 % (15-50); MCH 24.7 pg (26.0-34.0); MCHC 30.2 g/dL (31.0-37.0); MCV 82.1 fL (80.0-100.0); MEAN PLATELET VOLUME 11.1 fL (7.4-10.4); MONOCYTES 13.3 % (2-11); PLATELET COUNT 206 10x3/uL (130-400); RBC 4.85 10x6/uL (4.00-5.40); RDW 17.2 % (11.5-14.5); WBC 10.3 10x3/uL (4.8-10.8)
--- NOTE | 2020-02-21 07:49 | NUR ---
SHE IS ALERT, TALKING TO ME. SETTING UP IN THE BED WAITING FOR BREAKFAST. DENIES ANY PAIN. WEARING 2.5 L NC OF OXYGEN.
[2020-02-21 09:07] VITALS: BP 153/88
[2020-02-21 12:45] VITALS: BP 141/83
--- NOTE | 2020-02-21 14:55 | NUR ---
OT NOTE: PT COMPLETED ADL MOBILITY WITH HH ASSIST TO BATHROOM. PT COMPLETED ADL MOB TO SINK WITH HH ASSIST. PT COMPLETED TOILET HYGIENE WITH CGA. PT COMPLETED RUE HYGIENE TASKS WITH MOD A. PT COMPLETED LUE HYGIENE WITH SBA. PT COMLPLETED SIT TO STAND WITH CGA/MIN A. PT COMPLETED RUE AAROM TO DECREASE EDEMA AND ENCOURGAE MUSCLE RE EDUCATION. [phone] THANK YOU,RUBI JOSEPH
--- NOTE | 2020-02-21 15:19 | NUR ---
OT NOTE: PT DOING VERY WELL. WANTS TO KNOW IF SHE IS APPROVED FOR REHAB. EXPLAINED THAT ITS STILL PENDING APPROVAL FROM INSURANCE. PT ABLE TO AMB IN ROOM WITH WALKER AND ASSISTANCE TO KEEP R HAND ON WALKER. PT DOING BETTER WITH R UE AWARENESS. PERFORMS TRANSFERS WITH MIN ASSIST; AMB IN ROOM WITH WALKER AND MIN ASSIST; SIMPLE GROOMING TASKS WITH MIN/MOD ASSIST. EDUCATED PT ON ROM EXS TO INCLUDE ACTIVE AND SELF ROM. HAS BEEN UP IN CHAIR MOST OF DAY AND DOES NOT WANT TO GO BACK TO BED AT THIS TIME. ANASTACIO DELATORRE, OTR/L [phone]
--- NOTE | 2020-02-21 16:54 | NUR ---
Rehab Note- Have spoken with [facility] on behalf of [facility] and state auth is still pending. WIll continue to await determination. Thank you for this referral! Maryanne Veronica RN Clinical Liaison, [facility] Rehab
[2020-02-21 17:47] VITALS: BP 129/82
--- NOTE | 2020-02-21 20:05 | NUR ---
PT LYING IN BED AWAKE AND ALERT NO SIGNS OF DISTRESS NOTED. RESPIRATIONS EVEN AND UNLABORED. BATH IS COMPLETE. POWERHOUSE ELECTRICIAN APPRENTICE IS AT BEDSIDE. PT ENCOUARGED TO CALL FOR HELP WHEN NEEDED. CALL LIGHT WITH IN REACH
[2020-02-21 21:42] VITALS: BP 154/86
[2020-02-22 00:23] VITALS: BP 158/80
--- NOTE | 2020-02-22 01:57 | NUR ---
PT CALLED FOR ASSIST TO RESTROOM. CHANNEL MARKETING SPECIALIST IS AT BEDSIDE. NO SIGNS OF DISTRESS NOTED. CALL LIGHT AND ORTHER PERSONAL ITEMS ARE WITH IN REACH. WILL CONTINUE TO MONITOR
--- NOTE | 2020-02-22 03:15 | NUR ---
I have reviewed this patient and I concur with the Shift Assessment completed by the Licensed Practical Nurse today this shift.
[2020-02-22 04:45] LABS: BASOPHILS 0.9 % (0-2); EOSINOPHILS 5.4 % (0-7); HEMATOCRIT 43.4 % (36.0-48.0); HEMOGLOBIN 12.8 g/dL (12-16); IMMATURE GRANULOCYTES 1.1 % (0-5); LYMPHOCYTES 14.3 % (15-50); MCH 24.3 pg (26.0-34.0); MCHC 29.5 g/dL (31.0-37.0); MCV 82.5 fL (80.0-100.0); MONOCYTES 10.5 % (2-11); NEUTROPHILS 67.8 % (40-80); PLATELET COUNT 216 10x3/uL (130-400); RBC 5.26 10x6/uL (4.00-5.40); RDW 16.8 % (11.5-14.5)
[2020-02-22 04:46] LABS: WBC 7.5 10x3/uL (4.8-10.8)
[2020-02-22 04:57] LABS: ANION GAP 10.4 mmol/L (8-16); BILIRUBIN - TOTAL 0.83 mg/dL (0.2-1.3); CARBON DIOXIDE 31.5 mmol/L (21.0-32.0); MAGNESIUM - SERUM 1.9 mg/dL (1.8-2.4)
[2020-02-22 05:14] LABS: POTASSIUM - SERUM 4.9 mmol/L (3.5-5.1)
[2020-02-22 06:04] VITALS: BP 158/89
--- NOTE | 2020-02-22 07:21 | NUR ---
RECEIVED PT FROM FISHER QUAHOG. PT IS BED RESTING WITH EYES CLOSED UPON ENTERING. PT HAS NO IV, 2L OF O2 VIA NASAL CANNULA. PT IS REPORTED TO BE ALERT AND ORIENTED, STAND BY ASSIST, HAS A BED ALARM AND IS ON TELEMETRY. HISTORY OF A STROKE REPORTED. BED IN LOWEST POSITION, BED RAILS X2, CALL LIGHT WITHIN REACH. WILL CONTINUE TO MONITOR.
--- NOTE | 2020-02-22 07:56 | NUR ---
ASSISTED PT TO BATHROOM AND BACK TO BED. PT AMBULATED WELL BY HERSELF. DENIES ANY NEEDS. RESTING COMFORTABLY IN BED. WILL CONTINUE TO MONITOR.
--- NOTE | 2020-02-22 08:14 | NUR ---
ADMINISTERED MORNING MEDICATION, NO DIFFICULTY. ASSISTED PT TO BEDSIDE CHAIR AFTER USING RESTROOM. REQUESTED COFFEE, PROVIDED PROMPTLY. CHAIR ALARM ON. DENIES ANY NEEDS. WILL CONTINUE TO MONITOR.
[2020-02-22 09:47] VITALS: BP 144/78
--- NOTE | 2020-02-22 12:08 | MORECARE ---
CASE MANAGEMENT DISCHARGE SUMMARY PATIENT: JULIO RUDOLPH ANN UNIT: [id number] ADM DATE: 02/13/20 AGE: 64 : 59 SEX: F ROOM/BED: D.2203 AUTHOR: DEBBIE CARRILLO PHYSICIAN: REFERRING PHYSICIAN: MARCO A ANN MD DATE OF SERVICE: 02/22/20 Discharge Plan Patient Name: JULIO RUDOLPH Facility: [facility]:[place] : 1955 Planned Disposition: Inpatient Rehab Anticipated Discharge Date: Discharge Date: Expected LOS: Initial Reviewer: [email or web address] Initial Review Date: 02/22/2020 Generated: 02/22/20 1:07 pm DCPIA - Discharge Planning Initial Assessment Updated by [id number]: Allison King on 02/22/20 12:07 pm * Is the patient Alert and Oriented? Yes * Preadmission Environment Home Alone * ADLs Independent * Equipment Walker * List name and contact numbers for known caregivers / representatives who currently or will assist patient after discharge: LYRIC TSAI , * Community resources currently utilized Assisted Living * Please name any agencies selected above. [facility] * Additional services required to return to the preadmission environment? Yes * Can the patient safely return to the preadmission environment? No * Has this patient been hospitalized within the prior 30 days at any hospital? No Patient Name: JULIO RUDOLPH Page [phone] at 1208 All edits/amendments must be made on the electronic document DICTATION DATE: 02/22/20 1208 [facility] MANAGER: KEVIN 02/22/20 1208 RPT#: [id number] DC DATE: STATUS: ADM IN [facility] [address] [place] [address] END OF REPORT
--- NOTE | 2020-02-22 12:16 | MORECARE ---
CASE MANAGEMENT DISCHARGE SUMMARY PATIENT: JULIO RUDOLPH ANN UNIT: [id number] ADM DATE: 02/13/20 AGE: 64 : 59 SEX: F ROOM/BED: D.2203 AUTHOR: GERARDODOC PHYSICIAN: REFERRING PHYSICIAN: MARCO A ANN MD DATE OF SERVICE: 02/22/20 Discharge Plan Patient Name: JULIO RUDOLPH Facility: [facility]:[place] : 1955 Planned Disposition: Inpatient Rehab Anticipated Discharge Date: Discharge Date: Expected LOS: Initial Reviewer: [email or web address] Initial Review Date: 02/22/2020 Generated: 02/22/20 1:16 pm Comments DCP- Discharge Planning Updated by [id number]: Allison King on 02/22/20 11:[address] Patient Name: JULIO RUDOLPH Admission Status: ER Accout number: [id number] Admission Date: 02-13-2020 : 1955 Admission Diagnosis:RHABDOMYOLYSIS Attending: MARCO A ANN Current LOS: 9 Anticipated DC Date: Planned Disposition: Inpatient Rehab Primary Insurance: [employer] ADV Discharge Planning Comments: CM met with patient at bedside after explaining CM role and obtaining verbal consent. CM discussed availability / needs of home health, REHAB and medical equipment. NOELLE SIGNED FOR [facility]ICAL ACCESS HOSPITAL. IMM SIGNED. WE ARE WAITING INSURANCE AUTH FOR CRITICAL ACCESS HOSPITAL. Manager Strategic Sourcing: Allison King DCPIA - Discharge Planning Initial Assessment Updated by [id number]: Allison King on 02/22/20 12:07 pm * Is the patient Alert and Oriented? Yes * Preadmission Environment Home Alone * ADLs Independent * Equipment Walker * List name and contact numbers for known caregivers / representatives who currently or will assist patient after discharge: LYRIC TSAI , * Community resources currently utilized Assisted Living * Please name any agencies selected above. [facility] * Additional services required to return to the preadmission environment? Yes * Can the patient safely return to the preadmission environment? No * Has this patient been hospitalized within the prior 30 days at any hospital? No Coverage Notice Reviewer: [id number] - Allison King Notice Issued Date-Time: 02/22/2020 12:09 Notice Type: Patient Choice Letter Notice Delivered To: Patient Relationship to Patient: House Nurse Name: Delivery Method: HAND - Hand Delivered Lelia Days: Prior Verbal Notification: Recipient Understood Notice: Yes Recipient Signature: Yes Med Rec Note Co-signed by Attending: Coverage Notice Comment: [facility] Reviewer: [email or web address] Solange King Notice Issued Date-Time: 02/22/2020 12:09 Notice Type: IM Discharge Notice Notice Delivered To: Patient Relationship to Patient: House Nurse Name: Delivery Method: HAND - Hand Delivered Lelia Days: Prior Verbal Notification: Recipient Understood Notice: Yes Recipient Signature: Yes Med Rec Note Co-signed by Attending: Coverage Notice Comment: Last DP export: 02/22/20 11:08 am Patient Name: JULIO RUDOLPH Page [phone] at 1216 All edits/amendments must be made on the electronic document DICTATION DATE: 02/22/20 1216 PRINCIPAL CONSULTING ENGINEER: KEVIN 02/22/20 1216 RPT#: [id number] DC DATE: STATUS: ADM IN [facility] [address] [place] [address] END OF REPORT
[2020-02-22 13:17] VITALS: BP 114/64
--- NOTE | 2020-02-22 13:46 | NUR ---
Rehab Note- Spoke with Ann Marie with [facility] on behalf of [facility] to check on Auth process, stated it is in medical review with the bilingual medical receptionist and she sent another email due to the case had already been esculated yesterday when I spoke with them. Continue to await determination for possible inpatient acute rehab stay. Thank you for this referral! Maryanne Veronica RN Clinical Liaison, [facility] Rehab
--- NOTE | 2020-02-22 14:02 | NUR ---
Pt admitted with some blanchable redness noted on buttocks. She is being assisted to turn/reposition while in bed. Wound care continues to monitor.
--- NOTE | 2020-02-22 14:13 | NUR ---
OT NOTE: PT DOING WELL. SHE HAS BEEN UP IN CHAIR ALL DAY. PERFORMED SIMPLE GROOMING TASKS WTIH L HAND AND MIN ASSIST; WT BEARING ACT AND ROM EXS WITH R UE. AMB IN ROOM WITH ASSIST WITH KEEPING R HAND ON WALKER AND JUST SBA. PERFORMED STANDING BALANCE ACT WITH FAIR+ BALANCE. ANASTACIO DELATORRE, OTR/L [phone]
--- NOTE | 2020-02-22 14:30 | NUR ---
OT NOTE: PT COMPLETED ADL MOB WITH RW TO BATHROOM WITH CGA. PT COMPLETED SIT TO STAND WITH MIN A. PT COMPLETED TOILET HYGIENE WITH MOD A. PT REQUIRED MOD A WITH UB DRESSING TO THREAD RUE INTO SLEEVE OF GOWN. [phone] THANK YOU,RUBI JOSEPH
--- NOTE | 2020-02-22 15:26 | NUR ---
PT RESTING IN BED WITH EYES CLOSED, BREATHING EVEN AND UNLABORED. NO S/S OF DISTRESS NOTED AT THIS TIME. WILL CONTINUE TO MONITOR.
--- NOTE | 2020-02-22 15:54 | NUR ---
Rehab Note- Spoke with Nupur with [facility] on behalf of [facility] and auth is still pending with medical review. Continue to await pending auth. Maryanne Veronica RN Clinical Liaison, [facility] Rehab
--- NOTE | 2020-02-22 17:17 | NUR ---
PT SITTING UPRIGHT IN BEDSIDE CHAIR. DENIES ANY NEEDS AT THIS TIME. WILL CONTINUE TO MONITOR.
[2020-02-22 17:29] VITALS: BP 137/90
--- NOTE | 2020-02-22 18:17 | NUR ---
ADMINISTERED PRN TYLENOL FOR 7/10 PAIN IN THE RIGHT ARM. DENIES ANY OTHER NEEDS, IN BED SIDE CHAIR. WILL CONTINUE TO MONITOR.
--- NOTE | 2020-02-22 18:30 | NUR ---
I have reviewed this patient and I concur with the Shift Assessment completed by the Licensed Practical Nurse today this shift.
[2020-02-22 20:00] VITALS: BP 126/78
[2020-02-23] VITALS: BP 136/77
[2020-02-23 04:00] VITALS: BP 155/80
[2020-02-23 04:43] LABS: BASOPHILS 0.7 % (0-2); EOSINOPHILS 5.4 % (0-7); HEMATOCRIT 40.1 % (36.0-48.0); HEMOGLOBIN 11.7 g/dL (12-16); IMMATURE GRANULOCYTES 0.3 % (0-5); LYMPHOCYTES 16.9 % (15-50); MCH 24.3 pg (26.0-34.0); MCHC 29.2 g/dL (31.0-37.0); MCV 83.2 fL (80.0-100.0); MEAN PLATELET VOLUME 11.4 fL (7.4-10.4); MONOCYTES 11.4 % (2-11); NEUTROPHILS 65.3 % (40-80); PLATELET COUNT 210 10x3/uL (130-400); RBC 4.82 10x6/uL (4.00-5.40); RDW 16.7 % (11.5-14.5); WBC 7.1 10x3/uL (4.8-10.8)
[2020-02-23 04:58] LABS: ALBUMIN 2.8 g/dL (3.4-5.0); BILIRUBIN - TOTAL 0.51 mg/dL (0.2-1.3); CALCIUM 8.8 mg/dL (8.5-10.1); CARBON DIOXIDE 32.5 mmol/L (21.0-32.0); CREATININE - SERUM 1.1 mg/dL (0.6-1.3); PROTEIN - SERUM 6.6 g/dL (6.4-8.2)
[2020-02-23 04:59] LABS: ANION GAP 12.2 mmol/L (8-16); POTASSIUM - SERUM 3.7 mmol/L (3.5-5.1)
--- NOTE | 2020-02-23 06:33 | NUR ---
I have reviewed this patient and I concur with the Shift Assessment completed by the Licensed Practical Nurse today this shift.
--- NOTE | 2020-02-23 08:05 | NUR ---
SHE IS SETTING UP IN THE CHAIR. WEARING O2 AT 2 LITERS NC. HER RIGHT HAND IS SWOLLEN, ELEVATED ON A PILLOW, HAS BIALTER FEET EDEMA. THE CALL LIHGT IS WITHIN REACH.
[2020-02-23 09:28] VITALS: BP 150/88
--- NOTE | 2020-02-23 10:57 | NUR ---
Rehab Note- Voicemail left from Nupur with [facility] on behalf of [facility] stating that the patient has been authorized for an inpatient acute rehab stay for 7 days. Auth #[id number]. Spoke with SARA Moise RN Clinical Liaison, [facility] Rehab
--- NOTE | 2020-02-23 11:54 | MORECARE ---
CASE MANAGEMENT DISCHARGE SUMMARY PATIENT: JULIO RUDOLPH ANN UNIT: [id number] ADM DATE: 02/13/20 AGE: 64 : 59 SEX: F ROOM/BED: D.2203 AUTHOR: GERARDO,DOC PHYSICIAN: REFERRING PHYSICIAN: MARCO A ANN MD DATE OF SERVICE: 02/23/20 Discharge Plan Patient Name: JULIO RUDOLPH Facility: [facility]:[place] : 1955 Planned Disposition: Inpatient Rehab Anticipated Discharge Date: Discharge Date: Expected LOS: Initial Reviewer: [id number] Initial Review Date: 02/22/2020 Generated: 02/23/20 12:54 pm Comments DCP- Discharge Planning Updated by [id number]: Augustina Herrera on 02/23/20 10:[address] Patient has been accepted to inpatient rehab at [facility] will discharge today DCP- Discharge Planning Updated by [email or web address]: Allison King on 02/22/20 11:[address] Patient Name: JULIO RUDOLPH Admission Status: ER Accout number: [id number] Admission Date: 02-13-2020 : 1955 Admission Diagnosis:RHABDOMYOLYSIS Attending: MARCO A ANN Current LOS: 9 Anticipated DC Date: Planned Disposition: Inpatient Rehab Primary Insurance: [employer] ADV Discharge Planning Comments: CM met with patient at bedside after explaining CM role and obtaining verbal consent. CM discussed availability / needs of home health, REHAB and medical equipment. NOELLE SIGNED FOR [facility]. IMM SIGNED. WE ARE WAITING INSURANCE AUTH FOR [facility]. Cracker And Cookie Machine Operator: Allison King DCPIA - Discharge Planning Initial Assessment Updated by [email or web address]: Allison King on 02/22/20 12:07 pm * Is the patient Alert and Oriented? Yes * Preadmission Environment Home Alone * ADLs Independent * Equipment Walker * List name and contact numbers for known caregivers / representatives who currently or will assist patient after discharge: EULALIO LYRIC , * Community resources currently utilized Assisted Living * Please name any agencies selected above. [facility] * Additional services required to return to the preadmission environment? Yes * Can the patient safely return to the preadmission environment? No * Has this patient been hospitalized within the prior 30 days at any hospital? No Coverage Notice Reviewer: [id number] Solange King Notice Issued Date-Time: 02/22/2020 12:09 Notice Type: Patient Choice Letter Notice Delivered To: Patient Relationship to Patient: Health Program Analyst Name: Delivery Method: HAND - Hand Delivered Lelia Days: Prior Verbal Notification: Recipient Understood Notice: Yes Recipient Signature: Yes Med Rec Note Co-signed by Attending: Coverage Notice Comment: [facility] Reviewer: [id number] Solange King Notice Issued Date-Time: 02/22/2020 12:09 Notice Type: IM Discharge Notice Notice Delivered To: Patient Relationship to Patient: Health Program Analyst Name: Delivery Method: HAND - Hand Delivered Lelia Days: Prior Verbal Notification: Recipient Understood Notice: Yes Recipient Signature: Yes Med Rec Note Co-signed by Attending: Coverage Notice Comment: Last DP export: 02/22/20 11:16 am Patient Name: JULIO RUDOLPH Page [phone] at 1154 All edits/amendments must be made on the electronic document DICTATION DATE: 02/23/20 1154 CRYOGENIC TRANSPORT DRIVER: KEVIN 02/23/20 1154 RPT#: [id number] DC DATE: STATUS: ADM IN [facility] [address] [place] [address] END OF REPORT
[2020-02-23 13:20] VITALS: BP 143/79
[2020-02-23] MEDS ORDERED: NICOTINE P1 PATCH .3 TRANSDERM (14:20)
[2020-02-23] MEDS ORDERED: ACETAMINOPHEN325 MG PO (14:22)
--- NOTE | 2020-02-23 15:52 | NUR ---
OT NOTE: PT DOING WELL TODAY. PERFORMED NUMEROUS WT BEARING AND ROM EXS WITH R UE. INCREASED EDEMA NOTED IN R HAND. PROVIDED WASHCLOTH TO TABLE TOP AND HAD PT PERFORM PROTRACTION/RETRACTION, ELBOW FLEX/EXT(GRAVITY ELIMINATED), AND FINGER FLEX/EXT BY SQUEEZING WASH CLOTH.. ABLE TO PERFORM EACH EX X 5 REPS X 3 SETS WITH MOD REST BREAK DUE TO M FATIGUE. SIT TO STAND WITH MIN ASSIST WITH INSTRUCTIONAL CUES FOR R HAND PLACEMENT AND PUSHING UP FROM SURFACE WITH L HAND; COMPENSATORY TECH TRAINING FOR UE DRESSING AND LE DRESSING. AMB INTO HALLWAY WITH USE OF WALKER AND ONLY MIN ASSIST TO MAINTAIN R HAND ON WALKER.. AMB APPROX 120 FT.. ANASTACIO DELATORRE, OTR/L [phone]
--- NOTE | 2020-02-23 16:29 | NUR ---
OT NOTE: PT COMPLETED ADL MOB TO TOILET WITH CGA. PT COMPLETED SIT TO STAND WITH CGA. PT COMPLETED TOILET HYGIENE WITH SBA. PT COMPLETED HAND HYGIENE WITH SETUP. [phone] THANK YOU,RUBI JOSEPH
[2020-02-23 16:45] VITALS: BP 145/84
--- NOTE | 2020-02-23 16:59 | NUR ---
REPORT CALLED TO MICHELLE LUNA ON OUR REHAB UNIT.
--- NOTE | 2020-02-23 18:25 | NUR ---
TRANSFERED TO REHAB UNIT VIA WHEELCHAIR AND OXYGEN.
--- NOTE | 2020-02-24 10:29 | MORECARE ---
CASE MANAGEMENT DISCHARGE SUMMARY PATIENT: JULIO RUDOLPH ANN UNIT: [id number] ADM DATE: 02/13/20 AGE: 64 : 59 SEX: F ROOM/BED: D.2203 AUTHOR: GERARDODOC PHYSICIAN: REFERRING PHYSICIAN: MARCO A ANN MD DATE OF SERVICE: 02/24/20 Discharge Plan Patient Name: JULIO RUDOLPH Facility: [facility]:[place] : 1955 Planned Disposition: Inpatient Rehab Anticipated Discharge Date: Discharge Date: 02/23/2020 Expected LOS: 0 Initial Reviewer: [id number] Initial Review Date: 02/22/2020 Generated: 02/24/20 11:29 am Comments DCP- Discharge Planning Updated by [email or web address]: Augustina Herrera on 02/23/20 10:[address] Patient has been accepted to inpatient rehab at [facility] will discharge today DCP- Discharge Planning Updated by [id number]: Allison King on 02/22/20 11:[address] Patient Name: JULIO RUDOLPH Admission Status: ER Accout number: [id number] Admission Date: 02-13-2020 : 1955 Admission Diagnosis:RHABDOMYOLYSIS Attending: MARCO A ANN Current LOS: 9 Anticipated DC Date: Planned Disposition: Inpatient Rehab Primary Insurance: [facility] MEDIC[facility] ADV Discharge Planning Comments: CM met with patient at bedside after explaining CM role and obtaining verbal consent. CM discussed availability / needs of home health, REHAB and medical equipment. [facility]. IMM SIGNED. WE ARE WAITING INSURANCE AUTH [facility]. Main Line Assembler: Allison King DCPIA - Discharge Planning Initial Assessment Updated by [id number]: Allison King on 02/22/20 12:07 pm * Is the patient Alert and Oriented? Yes * Preadmission Environment Home Alone * ADLs Independent * Equipment Walker * List name and contact numbers for known caregivers / representatives who currently or will assist patient after discharge: EULALIOLYRIC , * Community resources currently utilized Assisted Living * Please name any agencies selected above. [facility] * Additional services required to return to the preadmission environment? Yes * Can the patient safely return to the preadmission environment? No * Has this patient been hospitalized within the prior 30 days at any hospital? No Coverage Notice Reviewer: [id number] Solange King Notice Issued Date-Time: 02/22/2020 12:09 Notice Type: Patient Choice Letter Notice Delivered To: Patient Relationship to Patient: Drafter [employer]otive Design Name: Delivery Method: HAND - Hand Delivered Lelia Days: Prior Verbal Notification: Recipient Understood Notice: Yes Recipient Signature: Yes Med Rec Note Co-signed by Attending: Coverage Notice Comment: [facility] Reviewer: [id number] Solange King Notice Issued Date-Time: 02/22/2020 12:09 Notice Type: IM Discharge Notice Notice Delivered To: Patient Relationship to Patient: Drafter [employer] Design Name: Delivery Method: HAND - Hand Delivered Lelia Days: Prior Verbal Notification: Recipient Understood Notice: Yes Recipient Signature: Yes Med Rec Note Co-signed by Attending: Coverage Notice Comment: Last DP export: 02/23/20 10:54 am Patient Name: JULIO RUDOLPH Page [phone] at 1029 All edits/amendments must be made on the electronic document DICTATION DATE: 02/24/20 1029 REFRIGERATION LEAD: KEVIN 02/24/20 1029 RPT#: [id number] DC DATE:02/23/20 STATUS: DIS IN [facility] [address] [place] [address] END OF REPORT
== END 2020-02-23 18:26 | DRG 557 ==
LOC: D.ER 12:31 → D.MS 14:07 → OBSVTIME 14:36 → D.MS 02-13 13:03
PROVIDERS: Emergency Medicine; Family Medicine Adult Medicine; ADMIT Internal Medicine Nephrology; ATTEND Internal Medicine Nephrology
DX: M62.82 Rhabdomyolysis (principal); R40.2123 Coma scale, eyes open, to pain, at hospital admission; R40.2343 Coma scale, best motor response, flexion withdrawal, at hospital admission; D68.9 Coagulation defect, unspecified; N17.9 Acute kidney failure, unspecified; F17.213 Nicotine dependence, cigarettes, with withdrawal; I10 Essential (primary) hypertension; J44.9 Chronic obstructive pulmonary disease, unspecified; E03.9 Hypothyroidism, unspecified; R74.0 Nonspecific elevation of levels of transaminase and lactic acid dehydrogenase [LDH]; R00.0 Tachycardia, unspecified; I08.1 Rheumatic disorders of both mitral and tricuspid valves; F12.10 Cannabis abuse, uncomplicated; F11.10 Opioid abuse, uncomplicated; R40.2243 Coma scale, best verbal response, confused conversation, at hospital admission

== ENCOUNTER 2020-02-23 15:21 | Inpatient (IN) | payer MEDICARE, MEDICAID ==
[~2020-02-23] VITALS: Ht 172.7 cm; Wt 90.7 kg
[~2020-02-23 15:21] MED LIST changes: +ACETAMINOPHEN325 MG PO; +BENADRYL25 MG PO; +FOLIC ACID1 MG PO; +METOPROLOL TART50 MG PO; +NICOTINE P1 PATCH .3 TRANSDERM; +PEPCID AC20 MG PO; +SEROQUEL100 MG PO
--- NOTE | 2020-02-23 17:50 | NUR ---
RECIEVED FROM ACUTE FLOOR/WC.ORIENTED TO ROOM AND SURROUNDINGS.CL IN REACH.
--- NOTE | 2020-02-23 18:04 | NUR ---
I have reviewed this patient and I concur with the Shift Assessment completed by the Licensed Practical Nurse today this shift.
--- NOTE | 2020-02-23 19:20 | NUR ---
GREETED PATIENT AND INTRODUCED MYSELF HER NURSE. PATIENT IS LAYING IN BED RESTING AT THIS TIME. O2 AT 2L IN USE VIA NC. RESPIRATIONS EVEN. NO S/S OF DISTRESS. CALL LIGHT IN REACH. PT. DENIES ANY NEEDS AT THIS TIME.
[2020-02-23 20:54] VITALS: BP 151/89
[2020-02-23 22:33] VITALS: BP 151/89
--- NOTE | 2020-02-24 01:48 | NUR ---
PT RESTING QUIETLY WITH EYES CLOSED. RESPIRATONS EVEN. NO S/S OF DISTRESS. CALL LIGHT IN REACH. O2 AT 2L IN USE VIA NC.
--- NOTE | 2020-02-24 03:53 | NUR ---
PT RESTING QUIETLY WITH EYES CLOSED. RESPIRATIONS EVEN. NO S/S OF DISTRESS. O2 AT 2L IN USE VIA NC. CALL LIGHT IN REACH.
[2020-02-24 06:34] LABS: ANION GAP 7.6 mmol/L (8-16); CARBON DIOXIDE 33.5 mmol/L (21.0-32.0); CREATININE - SERUM 1.2 mg/dL (0.6-1.3)
[2020-02-24 06:37] LABS: POTASSIUM - SERUM 3.1 mmol/L (3.5-5.1)
[2020-02-24 06:43] LABS: HEMOGLOBIN 11.2 g/dL (12-16); MCHC 28.7 g/dL (31.0-37.0); MCV 83.7 fL (80.0-100.0); MEAN PLATELET VOLUME 10.5 fL (7.4-10.4); RBC 4.66 10x6/uL (4.00-5.40); WBC 6.3 10x3/uL (4.8-10.8)
[2020-02-24 06:57] LABS: PLATELET COUNT 331 10x3/uL (130-400)
--- NOTE | 2020-02-24 07:57 | NUR ---
RESTING IN BED WITH EYES CLOSED, NO S/S OF DISTRESS NOTED, C/L AND FLUIDS IN REACH.
[2020-02-24 08:18] VITALS: BP 138/83
[2020-02-24 11:22] LABS: ANISOCYTOSIS OCC; BASOPHILS 1 % (0-2); EOSINOPHILS 1 % (0-7); LYMPHOCYTES 20 % (15-50); MONOCYTES 16 % (2-11); NEUTROPHILS 62 % (40-80); PLATELET ESTIMATE NORMAL
--- NOTE | 2020-02-24 12:36 | NUR ---
PATIENT RESTING IN BED WITH EYES CLOSED, O2 RUNNING AT 2LPM, RESP EVEN AND UNLABORED, NO S/S OF DISTRESS NOTED, C/L AND FLUIDS IN REACH.
[2020-02-24 14:01] VITALS: Ht 172.7 cm; Wt 90.7 kg
--- NOTE | 2020-02-24 15:00 | NUR ---
PATIENT ADMITTED TO REHAB FROM ACUTE FLOOR. HER PCP IS DR. REAGAN IN [place]. DME AT HOME IS A WALKER. DISCHARGE PLANS ARE FOR HER TO RETUN TO HER HOME. WILL CONTINUE TO FOLLOW WITH PATIENT.
--- NOTE | 2020-02-24 16:00 | NUR ---
PATIENT RESTING IN BED WITH EYES CLOSED, RESP EVEN AND UNLABORED, O2 RUNNING AT 2LPM, NO S/S OF DISTRESS NOTED, C/L AND FLUIDS IN REACH.
--- NOTE | 2020-02-24 19:18 | NUR ---
PT RESTING QUIETLY IN BED. CL IN REACH. NO DISTRESS NOTED. WAKES TO VERBAL STIMULI. BED IN LOW SIDE RAILS X2. EYES CLOSED. 2L OF O2 VIA NC. RESP EVEN AND UNLABORED. LUNGS DIMINISHED. WILL CONTINUE TO MONITOR.
[2020-02-24 20:32] VITALS: BP 123/77
--- NOTE | 2020-02-24 21:45 | NUR ---
PT AWAKED BY VERBAL STIMULI AND ASSISTED WITH MINIMAL ASSIST TO BATHROOM. PT BACK IN BED. CL IN REACH. O2 ON 2L VIA NC. BED IN LOW SIDE RAILS X2. BED ALARM ON. WCTM
--- NOTE | 2020-02-25 01:30 | NUR ---
PT RESTING QUIETLY. CL IN REACH. NO DISTRESS NOTED. BED IN LOW SIDE RAILS X2. WCTM
--- NOTE | 2020-02-25 05:00 | NUR ---
I have reviewed this patient and I concur with the Shift Assessment completed by the Licensed Practical Nurse today this shift.
[2020-02-25 08:16] VITALS: BP 128/79
--- NOTE | 2020-02-25 08:30 | NUR ---
PATIENT AWAKE AND ALERT, RESP EVEN AND UNLABORED WITH O2 RUNNING AT 2LPM, DENIES ANY NEEDS AT THIS TIME, V/S AND ASSESSMENT COMPLETED, C/L AND FLUIDS IN REACH.
--- NOTE | 2020-02-25 12:00 | NUR ---
PATIENT RESTING IN BED WITH EYES CLOSED, NO S/S OF DISTRESS NOTED, RESP EVEN AND UNLABORED, O2 RUNNING AT 2LPM, C/L AND FLUIDS IN REACH.
--- NOTE | 2020-02-25 16:00 | NUR ---
PATIENT UP WITH PT IN THERAPY ROOM, DENIES ANY NEEDS AT THIS TIME, AMBULATING WITH RW PER PT SUPERVISION.
--- NOTE | 2020-02-25 19:15 | NUR ---
PT LYING IN BED RESTING QUIETLY WITH EYES CLOSED. CL IN REACH. NO DISTRESS NOTED. BED IN LOW SIDE RAILS X2. BED ALARM ON. RESP EVEN AND UNLABORED. O2 ON 2L VIA NC. LUNGS DIMINISHED. BOWEL ACTIVE X4. WILL CONTINUE TO MONITOR.
[2020-02-25 20:00] VITALS: BP 108/68
--- NOTE | 2020-02-25 23:46 | NUR ---
I have reviewed this patient and I concur with the Shift Assessment completed by the Licensed Practical Nurse today this shift.
--- NOTE | 2020-02-26 03:39 | NUR ---
ASSISTED PT TO AND FROM BATHROOM. PT BACK IN BED. CL IN REACH. DENIES NEEDS WCTM
--- NOTE | 2020-02-26 08:15 | NUR ---
PT RESTING IN BED WITH EYES OPEN CALL LIGHT IN REACH PT EATING BREAKFAST TOLERATING WELL
--- NOTE | 2020-02-26 18:17 | NUR ---
PT RESTING IN BED WITH EYES OPEN CALL LIGHT IN REACH WILL MONITER
--- NOTE | 2020-02-26 19:21 | NUR ---
PT RESTING QUIETLY WITH EYES CLOSED. CL IN REACH. NO DISTRESS NOTED. BED IN LOW SIDE RAILS X2. LUNGS DIMINISHED. BOWEL ACTIVE X4. O2 ON 2L VIA NC. BED ALARM ON. RESP EVEN AND UNLABORED. WILL CONTINUE TO MONITOR.
[2020-02-26 20:37] VITALS: BP 116/72
[2020-02-27 06:28] LABS: ANION GAP 11.1 mmol/L (8-16); CALCIUM 9.2 mg/dL (8.5-10.1); CARBON DIOXIDE 30.2 mmol/L (21.0-32.0); CREATININE - SERUM 1.6 mg/dL (0.6-1.3); POTASSIUM - SERUM 4.3 mmol/L (3.5-5.1)
[2020-02-27 07:33] LABS: HEMATOCRIT 39.5 % (36.0-48.0); HEMOGLOBIN 11.4 g/dL (12-16); LYMPHOCYTES 23.8 % (15-50); MCH 24.4 pg (26.0-34.0); MCHC 28.9 g/dL (31.0-37.0); MCV 84.6 fL (80.0-100.0); MEAN PLATELET VOLUME 10.5 fL (7.4-10.4); NEUTROPHILS 59.5 % (40-80); PLATELET COUNT 381 10x3/uL (130-400); RBC 4.67 10x6/uL (4.00-5.40); RDW 17.1 % (11.5-14.5); WBC 5.8 10x3/uL (4.8-10.8)
--- NOTE | 2020-02-27 08:18 | NUR ---
EATING BREAKFAST. NO C/O PAIN. RESP EVEN AND UNLABORED. CL IN REACH.
[2020-02-27 08:24] VITALS: BP 122/79
--- NOTE | 2020-02-27 10:39 | NUR ---
PARTICIPATED IN THERAPY THIS AM. BACK TO BED AT THIS TIME. CL IN REACH.
--- NOTE | 2020-02-27 16:41 | NUR ---
RESTING WO DISTRESS. NO CHANGE IN ASSESSMENT. CL IN REACH.
[2020-02-27 20:00] VITALS: BP 112/73
[2020-02-28 08:00] VITALS: BP 108/62
--- NOTE | 2020-02-28 08:00 | NUR ---
SHIFT ASSMT COMPLETED.BREAKFAST GIVEN.
--- NOTE | 2020-02-28 13:52 | NUR ---
Nutrition follow-up: Visited with pt during lunch. Pt eating very slow; states no issues with chewing or swallowing. Pt still eating when therapist came to get her. Diet: Regular PO intake ~50% of meals Labs reviewed WT: 199# RDN following.
--- NOTE | 2020-02-28 19:30 | NUR ---
PT IN BED, NO NEEDS NOTED, FALL PRECAUTIONS IN PLACE, FLUIDS/CALL LIGHT WITHIN REACH
[2020-02-28 21:18] VITALS: BP 118/74
--- NOTE | 2020-02-29 01:03 | NUR ---
PT ASLEEP AROUSES EASILY TO VOICE, NO NEEDS NOTED, FALL PRECAUTIONS IN PLACE, FLUIDS/CALL LIGHT WITHIN REACH
[2020-02-29 07:34] LABS: EOSINOPHILS 5.8 % (0-7); HEMATOCRIT 39.4 % (36.0-48.0); HEMOGLOBIN 11.3 g/dL (12-16); LYMPHOCYTES 15.1 % (15-50); MCH 24.5 pg (26.0-34.0); MCHC 28.7 g/dL (31.0-37.0); MCV 85.5 fL (80.0-100.0); MEAN PLATELET VOLUME 9.9 fL (7.4-10.4); MONOCYTES 12.5 % (2-11); NEUTROPHILS 65.6 % (40-80); PLATELET COUNT 353 10x3/uL (130-400); RBC 4.61 10x6/uL (4.00-5.40); RDW 17.5 % (11.5-14.5); WBC 5.9 10x3/uL (4.8-10.8)
[2020-02-29 07:53] LABS: ANION GAP 12.1 mmol/L (8-16); CALCIUM 9.4 mg/dL (8.5-10.1); CARBON DIOXIDE 27.3 mmol/L (21.0-32.0); CREATININE - SERUM 1.4 mg/dL (0.6-1.3); POTASSIUM - SERUM 4.4 mmol/L (3.5-5.1)
--- NOTE | 2020-02-29 08:00 | NUR ---
SHIFT ASSMT COMPLETED.
--- NOTE | 2020-02-29 16:00 | NUR ---
[facility].WILL CONT WITH POC.CL IN REACH.
--- NOTE | 2020-02-29 16:12 | NUR ---
CARE TEAM MEETING: PATIENT DOING WELL IN THERAPY. HER TENATIVE DISCHARGE DATE IS 03/07/20. WILL CONTINUE TO FOLLOW WITH PATIENT.
--- NOTE | 2020-02-29 19:40 | NUR ---
PATIENT RECEIVED SITTING UP IN BED. ASSESSMENT & VITAL SIGNS DONE. NO C/O PAIN OR DISTRESS AT THIS TIME. BED LOW. ALARM ON. CALL LIGHT WITHIN REACH. WILL CONTINUE TO MONITOR.
[2020-02-29 19:59] VITALS: BP 126/74
--- NOTE | 2020-03-01 02:14 | NUR ---
I have reviewed this patient and I concur with the Shift Assessment completed by the Licensed Practical Nurse today this shift.
--- NOTE | 2020-03-01 04:12 | NUR ---
PATIENT EYES CLOSED. RESPIRATIONS 18 & EVEN. BED LOW. ALARM ON. CALL LIGHT WITHIN REACH. WILL CONTINUE TO MONITOR.
--- NOTE | 2020-03-01 04:56 | NUR ---
PATIENT USED CALL LIGHT FOR ASSIST. PATIENT ONE PERSON ASSIST INTO WHEELCHAIR. PATIENT MINIMAL ASSIST ONTO COMMODE. PATIENT USED BOTH HANDS ON BAR & PULLED SELF UP. PATIENT SLOWLY PIVOTED ON LEFT FOOT & SAT DOWN ON COMMODE. PATIENT HAD VOID ONLY. PATIENT ASSIST OFF OF COMMODE. HANDS CLEANED. RETURNED TO BED WITH MINIMAL ASSIST. HED OF BED UP. PATIENT DRANK WATER. CALL LIGHT WITHIN REACH. ALARM ON. WILL CONTINUE TO MONITOR.
[2020-03-01 07:36] VITALS: BP 118/79
--- NOTE | 2020-03-01 08:00 | NUR ---
SITTING UP IN BED FOR BREAKFAST. FEEDS SELF. DENIES NEEDS OR PAIN. CALL LIGHT IN REACH. BED IN LOWEST POSITION. SIDE RAILS UP X2.
--- NOTE | 2020-03-01 11:06 | NUR ---
CLINICAL UPDATES FAXED TO [facility] , AUTH. # [id number], WITH TENATIVE DISCHARGE DATE BEING 03/07/20. WILL CONTINUE TO FOLLOW WITH PATIENT.
--- NOTE | 2020-03-01 15:34 | NUR ---
RESTING QUIETLY IN BED. LAYING ON SIDE WITH EYES CLOSED. NO S/S DISTRESS. HAS TONGUE STICKING OUT OF HER MOUTH. CALL LIGHT IN REACH. BED IN LOWEST POSITIONS.
--- NOTE | 2020-03-01 22:16 | NUR ---
PT IN BED, NO NEEDS NOTED, FALL PRECAUTIONS IN PLACE, FLUIDS/CALL LIGHT WITHIN REACH
[2020-03-02 00:35] VITALS: BP 131/80
--- NOTE | 2020-03-02 01:00 | NUR ---
PATIENT RECEIVED SITTING UP IN BED. EYES CLOSED. RESPIRATIONS 18 & EVEN. 02@ 2LNC. BED LOW. ALARM ON. CALL LIGHT WITHIN REACH. WILL CONTINUE TO MONITOR.
--- NOTE | 2020-03-02 03:52 | NUR ---
PATIENT MINIMAL ASSIST INTO WHEELCHAIR. MINIMAL ASSIST ONTO TOILET. VOID ONLY. RETURNED TO BED MINIMAL ASSIST. BED LOW. ALARM ON. CALL LIGHT WITHIN REACH. WILL CONTINUE TO MONITOR.
--- NOTE | 2020-03-02 07:21 | NUR ---
PATIENT AWAKE AND ALERT UP IN BED, DENIES ANY NEEDS AT THIS TIME, INTRODUCED SELF TO PATIENT AND PUT NAME ON BOARD, C/L AND FLUIDS IN REACH.
[2020-03-02 08:00] VITALS: BP 146/93
--- NOTE | 2020-03-02 08:30 | NUR ---
PATIENT UP IN W/C JUST HAD SHOWER WITH OT, DENIES ANY NEEDS AT THIS TIME, ASSESSMENT COMPLETE, C/L AND FLUIDS IN REACH.
[2020-03-02 08:42] LABS: BASOPHILS 0.9 % (0-2); EOSINOPHILS 6.7 % (0-7); HEMATOCRIT 39.6 % (36.0-48.0); HEMOGLOBIN 11.4 g/dL (12-16); IMMATURE GRANULOCYTES 0.2 % (0-5); LYMPHOCYTES 20.9 % (15-50); MCH 24.5 pg (26.0-34.0); MCHC 28.8 g/dL (31.0-37.0); MONOCYTES 8.2 % (2-11); NEUTROPHILS 63.1 % (40-80); PLATELET COUNT 352 10x3/uL (130-400); RBC 4.66 10x6/uL (4.00-5.40); RDW 17.2 % (11.5-14.5); WBC 5.9 10x3/uL (4.8-10.8)
[2020-03-02 08:52] LABS: ANION GAP 12.7 mmol/L (8-16); CALCIUM 9.2 mg/dL (8.5-10.1); CARBON DIOXIDE 28.4 mmol/L (21.0-32.0); CREATININE - SERUM 1.4 mg/dL (0.6-1.3); POTASSIUM - SERUM 4.1 mmol/L (3.5-5.1)
--- NOTE | 2020-03-02 12:00 | NUR ---
PATIENT RESTING IN BED WITH EYES CLOSED, RESP EVEN AND UNLABORED O2 RUNNING AT 2LPM, NO S/S OF DISTRESS NOTED, C/L AND FLUIDS IN REACH.
--- NOTE | 2020-03-02 15:54 | NUR ---
PATIENT RESTING IN BED WITH EYES CLOSED, NO S/S OF DISTRESS NOTED, RESP EVEN AND UNLABORED O2 RUNNING AT 2LPM, C/L AND FLUIDS IN REACH.
--- NOTE | 2020-03-02 19:30 | NUR ---
PT RESTING QUIETLY WITH EYES CLOSED. CL IN REACH. NO DISTRESS NOTED. RESP EVEN AND UNLABORED. O2 ON 2L VIA NC. BED IN LOW SIDE RAILS X2. WAKES WITH VERBAL STIMULI. BED ALARM ON. WILL CONTINUE TO MONITOR.
[2020-03-02 21:08] VITALS: BP 125/77
--- NOTE | 2020-03-02 23:00 | NUR ---
ASSISTED TO AND FROM BATHROOM. DENIES FURTHER NEEDS. CL IN REACH. WCTM
--- NOTE | 2020-03-03 01:54 | NUR ---
I have reviewed this patient and I concur with the Shift Assessment completed by the Licensed Practical Nurse today this shift.
[2020-03-03 08:05] VITALS: BP 151/94
--- NOTE | 2020-03-03 08:12 | NUR ---
PATIENT UP IN W/C EATING BREAKFAST, V/S AND ASSESSMENT COMPLETE, DENIES ANY NEEDS AT THIS TIME, C/L AND FLUIDS IN REACH.
--- NOTE | 2020-03-03 12:00 | NUR ---
PATIENT RESTING IN BED WITH EYES CLOSED, NO S/S OF DISTRESS NOTED, RESP EVEN AND UNLABORED O2 RUNNING AT 2LPM VIA N/C.
--- NOTE | 2020-03-03 12:00 | NUR ---
I have reviewed this patient and I concur with the Shift Assessment completed by the Licensed Practical Nurse today this shift.
--- NOTE | 2020-03-03 16:08 | NUR ---
RESTING IN BED WITH EYES CLOSED, NO S/S OF DISTRESS NOTED, RESP EVEN AND UNLABORED O2 RUNNING AT 2LPM VIA N/C, C/L AND FLUIDS IN REACH.
--- NOTE | 2020-03-03 19:15 | NUR ---
PT LYING IN BED RESTING QUIETLY WITH EYES CLOSED. NO DISTRESS NOTED. RESP EVEN AND UNLABORED. LUNGS DIMINISHED. O2 ON 2L VIA NC. BED IN LOW SIDE RAILS X2. BED ALARM ON. WILL CONTINUE OT MONITOR. CL IN REACH.
[2020-03-03 20:01] VITALS: BP 129/77
--- NOTE | 2020-03-04 00:26 | NUR ---
I have reviewed this patient and I concur with the Shift Assessment completed by the Licensed Practical Nurse today this shift.
--- NOTE | 2020-03-04 01:30 | NUR ---
ASSISTED TO AND FROM BATHROOM. BACK IN BED. CL IN REACH. DENIES FURTHER NEEDS. WCTM
--- NOTE | 2020-03-04 04:30 | NUR ---
ASSISTED TO AND FROM BATHROOM. DENIES FURTHER NEEDS. CL IN REACH. WCTM
--- NOTE | 2020-03-04 07:34 | NUR ---
PT RESTING IN BED WITH EYES OPEN CALL LIGHT IN REACH WILL MONITER
--- NOTE | 2020-03-04 07:53 | NUR ---
I have reviewed this patient and I concur with the Shift Assessment completed by the Licensed Practical Nurse today this shift.
[2020-03-04 09:28] VITALS: BP 146/93
--- NOTE | 2020-03-04 16:29 | NUR ---
PT RESTING IN BED WITH EYES OPEN CALL LIGHT IN REACH WILL MONITER
--- NOTE | 2020-03-04 19:22 | NUR ---
PT SITTING UP IN BED WATCHING TV. CL IN REACH. DENIES NEEDS OR PAIN AT THIS TIME. BED IN LOW SIDE RAILS X2. RESP EVEN AND UNLABORED. LUNGS DIMINISHED. A/O X4. BOWEL ACTIVE X4. O2 ON 2L VIA NC. WILL CONTINUE TO MONITOR.
[2020-03-04 20:30] VITALS: BP 144/88
--- NOTE | 2020-03-05 05:05 | NUR ---
I have reviewed this patient and I concur with the Shift Assessment completed by the Licensed Practical Nurse today this shift.
[2020-03-05 07:05] LABS: BASOPHILS 0.5 % (0-2); EOSINOPHILS 6.2 % (0-7); HEMATOCRIT 40.6 % (36.0-48.0); HEMOGLOBIN 11.6 g/dL (12-16); IMMATURE GRANULOCYTES 0.4 % (0-5); LYMPHOCYTES 20.5 % (15-50); MCH 24.2 pg (26.0-34.0); MCHC 28.6 g/dL (31.0-37.0); MCV 84.6 fL (80.0-100.0); MEAN PLATELET VOLUME 9.1 fL (7.4-10.4); MONOCYTES 9.1 % (2-11); NEUTROPHILS 63.3 % (40-80); PLATELET COUNT 298 10x3/uL (130-400); WBC 5.6 10x3/uL (4.8-10.8)
[2020-03-05 07:16] LABS: ANION GAP 11.5 mmol/L (8-16); CALCIUM 9.3 mg/dL (8.5-10.1); CARBON DIOXIDE 29.8 mmol/L (21.0-32.0); CREATININE - SERUM 1.3 mg/dL (0.6-1.3); POTASSIUM - SERUM 4.3 mmol/L (3.5-5.1)
--- NOTE | 2020-03-05 11:47 | NUR ---
PT RESTING IN BED WITH EYES OPEN EATING BREAKFAST TOLERATING WELL
--- NOTE | 2020-03-05 13:45 | NUR ---
Nutrition follow-up: Diet: Regular PO intake 100% of last 5 meals Labs reviewed WT: 199# PO intake remains good at this time RDN following.
--- NOTE | 2020-03-05 19:45 | NUR ---
PT IS RESTING IN BED WITH EYES CLOSED. AWOKE EASILY TO VERBAL STIMULI. ALERT AND ORIENTED X 3. DENIES ACUTE PAIN OR DISCOMFORT AT THIS TIME. NO NEEDS VOICED. LEFT ARM IS FLACCID, BUT HAS SOME WEAK MOTOR MOVEMENT AT TIMES. O2 IS ON @ 2LPM PER NC. NO SOB NOTED. SR'S ARE UP X 3 IN BED. CALL LIGHT AND BEDSIDE TABLE ARE WITHIN EASY REACH.
[2020-03-05 20:00] VITALS: BP 134/79
--- NOTE | 2020-03-05 22:21 | NUR ---
PT IS RESTING QUIETLY IN BED WITH EYES CLOSED. RESPS ARE EVEN AND UNLABORED. NO ACUTE DISTRESS NOTED.
--- NOTE | 2020-03-06 01:00 | NUR ---
PT ASSISTED TO THE BATHROOM WITH MOD ASSIST FOR TRANSFERS. SBA FOR TOILETING. NO FURTHER NEEDS VOICED.
--- NOTE | 2020-03-06 04:00 | NUR ---
PT IS RESTING QUIETLY IN BED WITH EYES CLOSED. RESPS ARE EVEN AND UNLABORED. NO ACUTE DISTRESS NOTED.
[2020-03-06 09:08] VITALS: BP 161/78
--- NOTE | 2020-03-06 09:18 | NUR ---
ALERT AND ORIENTED. NO DISTRESS NOTED. CL IN REACH. SHOWER PER OT.
--- NOTE | 2020-03-06 12:24 | NUR ---
NO CHANGE IN ASSESSMENT. EATING LUNCH.
--- NOTE | 2020-03-06 18:28 | NUR ---
RESTING WO DISTRESS. NO C/O PAIN. CL IN REACH.
--- NOTE | 2020-03-06 19:40 | NUR ---
PATIENT RECEIVED SITTING UP IN BED. ASSESSMENT & VITAL SIGNS DONE. NO C/O PAIN OR DISTRESS. BED LOW. ALARM ON. CALL LIGHT WITHIN REACH. WILL CONTINUE TO MONITOR.
[2020-03-06 21:52] VITALS: BP 135/81
--- NOTE | 2020-03-06 23:59 | NUR ---
I have reviewed this patient and I concur with the Shift Assessment completed by the Licensed Practical Nurse today this shift.
--- NOTE | 2020-03-07 03:46 | NUR ---
PATIENT EYES CLOSED. RESPIRATIONS 18 & EVEN. BED LOW. ALARM ON. CALL LIGHT WITHIN REACH. WILL CONTINUE TO MONITOR.
--- NOTE | 2020-03-07 07:19 | NUR ---
RESTING QUIETLY.STILL SLEEPING.CL IN REACH.
--- NOTE | 2020-03-07 08:00 | NUR ---
PATIENT IS ALERT/ORIENT. SITTING UP IN BED TO EAT BREAKFAST. CALL LIGHT WITHIN REACH. PLAN TO DISCHARGE HOME TODAY.
--- NOTE | 2020-03-07 08:03 | NUR ---
I have reviewed this patient and I concur with the Shift Assessment completed by the Licensed Practical Nurse today this shift.
--- NOTE | 2020-03-07 08:45 | RHP ---
PATIENT: JUILO RUDOLPH MEDICAL RECORD: [id number] ACCOUNT: [id number] LOCATION:[facility] : 59 ADMISSION DATE: 02/23/20 REHABILITATION HISTORY AND PHYSICAL EXAMINATION POST ADMISSION PHYSICIAN EXAMINATION ADMITTING DIAGNOSIS: Rhabdomyolysis HISTORY OF PRESENT ILLNESS: The patient is a 64-year-old female patient who has been admitted for a neuromuscular disorder, rhabdomyolysis. She presented to the ED after she had been found at home with altered mental status and difficulty to arouse. She was grossly intact upon admission, but she was somewhat somnolent. She had been seen in the ER the day before discharge home. The patient did improve after being on some Narcan in the Emergency Room. She was found to have a temperature of 100.4, low potassium. Her creatinine was 2.8. Her CPK was elevated at 4533. She had been placed in for electrolyte protocol and telemetry. Previously, she was living alone with use of a rollator as needed. She has had prolonged immobility, progressive generalized weakness, especially in lower extremities affecting her tolerance to PT. She is very fatigued and has flexion and extension of her lower extremities affected. She has got proximal muscle strength decreased and she is mod to max assist for ADLs, mod to max assist for sit to stand and bed to chair. She has severe edema in her right upper extremity and decreased resin maker. She desats to the 80s without supplemental O2. She wants to be able to return back home at her prior level of functioning. COMORBIDITIES: Include acute kidney injury, altered level of function, rhabdomyolysis, coagulopathy, eosinophilia, low sodium tachycardia, uncontrolled hypertension, edema, hypothyroidism, peripheral neuropathy, tobacco use, nicotine dependence withdrawal and transaminitis. PAST MEDICAL HISTORY: Significant for chronic pain, hepatitis C, hypothyroidism, COPD, tobacco use, recreational drug use, she has got a history of cocaine, alcohol and marijuana use. PAST SURGICAL HISTORY: None. ALLERGIES: NIACIN. CURRENT MEDICATIONS: Include a Nicoderm patch daily, she is on metoprolol 100 mg daily, Rashida 60 mg daily, Neurontin 600 mg daily, Lasix 40 mg daily, folic acid 1 mg daily, Pepcid 40 mg daily, amlodipine 10 mg daily, Synthroid 125 mcg daily, Seroquel 200 mg b.i.d., Zyprexa 10 mg b.i.d., diphenhydramine 25 b.i.d., Eliquis 5 mg b.i.d., Tylenol 325 every 6 hours and MiraLax 17 grams in 8 ounces of water daily. HABITS: Does have a history of alcohol, tobacco, marijuana and cocaine use. FAMILY HISTORY: Noncontributory. SOCIAL HISTORY: The patient hopes to return back home and get back to her prior level of functioning. REVIEW OF SYSTEMS: GENERAL: Does complain of weakness and fatigue. HISTORY AND PHYSICAL [id number] JULIO RUDOLPH HEENT: Denies cold, cough, or congestion. CARDIOVASCULAR: Denies any chest pain. PHYSICAL EXAMINATION: VITAL SIGNS: Stable, afebrile. GENERAL: A morbidly obese female, in no distress upon exam. HEENT: Normocephalic and atraumatic. Mucosa moist. NECK: Supple. No lymphadenopathy. LUNGS: Clear in upper plascencia. HEART: Regular rate and rhythm. No murmurs, rubs, or gallops. ABDOMEN: Soft, benign and nondistended. Positive bowel sounds times 4. EXTREMITIES: No clubbing, cyanosis or edema in her lower extremities, but does have edema in her upper extremity. NEUROLOGIC: She does have decreased muscle strength. LABORATORY DATA: White count is 6.3, H&H of 11 and 39 and platelet count is 331. Her sodium is 136, potassium 3.1, BUN and creatinine of 13 and 1.2, and blood sugar is noted to be 106. ASSESSMENT: This is a 64-year-old female patient admitted to rehab with a working diagnosis of rhabdomyolysis. The patient has potential to make improvement. We instituted the following multidisciplinary therapies including, but not limited to physical, occupational, respiratory, speech, nutritional services, prosthetics and orthotics. Given her complex medical condition and risks for more complications, rehabilitation services cannot be provided at a low level of care such as group home facility. PLAN: 1. Admit to [facility] for intensive inpatient therapy to include the following disciplines; A. Physical therapy to improve gait, all transfer skills and bed mobility to a modified independent level. B. Occupational therapy to improve activities of daily living. C. Case management to assist with discharge planning and placement options. D. Nutrition to assist with nutritional needs. E. Rehabilitation nursing to assist in monitoring the patient's underlying medical conditions and to assist with any type of bowel or bladder management. 2. The patient's current medication and medical care will be continued. 3. The patient will be placed on standard fall precautions. 4. The patient's estimated length of stay is approximately 7-10 days. 5. We will discuss the patient during care team staff meeting this week. TRANSINT:[id number] Voice Confirmation ID: [id number] DOCUMENT ID: [id number] MARGI notes whether there has been none or any medical/functional change since admission: - No change since preadmission screen. MARGI attests patient continues to be appropriate for IRF: - Continues to be appropriate. HISTORY AND PHYSICAL [id number] JULIO RUDOLPH,CHILO MCCRAY MD at 0845 CC: [id number] DICTATION DATE: 02/24/20900 MACHINE MOLDER SQUEEZE: 02/24/20 0925 ADM IN [place] [id number] [place] [id number]
--- NOTE | 2020-03-07 09:51 | NUR ---
PATIENT DISCHARGING HOME TODAY WITH FAMILY, [facility] WILL PROVIDE THERAPY AT HOME. NO NEW DME NEEDED AT THIS TIME. DR. REAAGN 03/14/20 @ 1:45. NOELLE SIGNED, NO COMPARE DATA REVIEWED PER PATIENT REQUEST.IMM SERVED AND EXPLAINED, ONE GIVEN TO PATIENT AND ONE FILED IN CHART. DISCHARGE INSTRUCTIONS FAXED TO PCP, [facility] [phone], AUTH. # [id number] AMD REVIEWED WITH PATIENT PER PRIMARY NURSE.
--- NOTE | 2020-03-07 10:11 | NUR ---
DR Madina OLIVEIRA INTO SEE PATIENT. DISCHARGE ORDERS GIVEN. PATIENTS SISTER MOISÉS CALLED AND AWARE OF DISCHARGE.
--- NOTE | 2020-03-07 13:01 | NUR ---
DISCHARGE INSTRUCTIONS GONE OVER WITH PATIENT
--- NOTE | 2020-03-07 19:11 | NUR ---
DISCHARGED HOME , LEFT VIA WHEELCHAIR ALERT AND ORIENTED. PICKED UP BY DAUGHTERS. ESCORTED TO ER EXIT PER GARY VILLALTA.
== END 2020-03-07 19:13 | disposition home health service (06) | DRG 74 ==
LOC: D.REHAB 15:21
PROVIDERS: ADMIT Emergency Medicine; ATTEND Emergency Medicine
DX: G70.9 Myoneural disorder, unspecified (principal); M62.82 Rhabdomyolysis; D68.9 Coagulation defect, unspecified; N17.9 Acute kidney failure, unspecified; F17.213 Nicotine dependence, cigarettes, with withdrawal; E87.1 Hypo-osmolality and hyponatremia; F17.203 Nicotine dependence unspecified, with withdrawal; I10 Essential (primary) hypertension; J44.9 Chronic obstructive pulmonary disease, unspecified; E03.9 Hypothyroidism, unspecified; R74.0 Nonspecific elevation of levels of transaminase and lactic acid dehydrogenase [LDH]; R00.0 Tachycardia, unspecified; I08.1 Rheumatic disorders of both mitral and tricuspid valves; F12.10 Cannabis abuse, uncomplicated; F11.10 Opioid abuse, uncomplicated; D72.1 Eosinophilia; R60.9 Edema, unspecified; G62.9 Polyneuropathy, unspecified; B19.20 Unspecified viral hepatitis C without hepatic coma

== ENCOUNTER 2020-03-22 11:50 | Inpatient (IN) | payer MEDICARE, MEDICAID ==
[~2020-03-22] VITALS: Ht 172.7 cm; Wt 86.2 kg
[2020-03-22] MEDS ORDERED: ADVIL PM PO (12:08)
[2020-03-22] MEDS ORDERED: K-TAB10 MEQ PO (12:09)
[2020-03-22 13:18] LABS: BASOPHILS 0.5 % (0-2); EOSINOPHILS 5.3 % (0-7); HEMATOCRIT 40.1 % (36.0-48.0); HEMOGLOBIN 11.8 g/dL (12-16); IMMATURE GRANULOCYTES 0.1 % (0-5); LYMPHOCYTES 23.2 % (15-50); MCH 25.4 pg (26.0-34.0); MCHC 29.4 g/dL (31.0-37.0); MCV 86.2 fL (80.0-100.0); MEAN PLATELET VOLUME 10.2 fL (7.4-10.4); MONOCYTES 11.7 % (2-11); NEUTROPHILS 59.2 % (40-80); RBC 4.65 10x6/uL (4.00-5.40); RDW 20.2 % (11.5-14.5); WBC 7.6 10x3/uL (4.8-10.8)
[2020-03-22 13:23] VITALS: BP 112/71
--- NOTE | 2020-03-22 13:23 | NUR ---
RTND FROM CT, RESTING WITH EYES CLOSED, AROUSES EASILY WHEN NAME CALLED
[2020-03-22 13:35] LABS: APTT 26.2 SECONDS (22.8-39.4); CALC OSMOLALITY 280 mosm/kg (275-300); CALCIUM 8.8 mg/dL (8.5-10.1); CARBON DIOXIDE 31.8 mmol/L (21.0-32.0); CHLORIDE - SERUM 102 mmol/L (98-107); CREATININE - SERUM 2.9 mg/dL (0.6-1.3); GLUCOSE 86 mg/dL (74-106); INR 1.2 (0.85-1.17); POTASSIUM - SERUM 5.1 mmol/L (3.5-5.1); PROTIME 15.1 SECONDS (11.6-15.0); SODIUM 138 mmol/L (136-145); UREA NITROGEN 30 mg/dL (7-18); eGFR NON AFRICAN AMERICAN 17 mL/min (90-120)
[2020-03-22 13:44] LABS: PLATELET COUNT 216 10x3/uL (130-400)
[2020-03-22 13:50] LABS: UDS - AMPHET NEGATIVE QUAL (NEGATIVE); UDS - BARB NEGATIVE QUAL (NEGATIVE); UDS - BENZO NEGATIVE QUAL (NEGATIVE); UDS - COCAINE NEGATIVE QUAL (NEGATIVE); UDS - OPIATE NEGATIVE QUAL (NEGATIVE); UDS - PCP NEGATIVE QUAL (NEGATIVE); UDS - THC NEGATIVE QUAL (NEGATIVE)
[2020-03-22 13:53] LABS: ALBUMIN 3.3 g/dL (3.4-5.0); ALKALINE PHOSPHATASE 73 U/L (30-120); ALT (SGPT) 16 U/L (10-68); BILIRUBIN - TOTAL 0.31 mg/dL (0.2-1.3); CKMB 3.1 U/L (0.0-3.6); CREATINE KINASE 195 UL (21-215); MAGNESIUM - SERUM 2.4 mg/dL (1.8-2.4); PROTEIN - SERUM 7.4 g/dL (6.4-8.2); THYROID STIMULATING HORMONE 8.62 uIU/mL (0.36-3.74); TROPONIN-I < 0.017 ng/mL (0.000-0.060)
[2020-03-22 14:04] LABS: BACTERIA FEW /hpf (NEGATIVE); BILIRUBIN NEGATIVE (NEGATIVE); GLUCOSE NEGATIVE (NEGATIVE); KETONE NEGATIVE (NEGATIVE); NITRITE NEGATIVE (NEGATIVE); RED CELLS - URINE OCC /hpf (0-5); SPECIFIC GRAVITY 1.015 (1.005-1.020); UROBILINOGEN NORMAL (NORMAL); WHITE CELLS - URINE 25-50 /hpf (NEGATIVE)
[2020-03-22 14:05] LABS: EPITHELIAL CELLS OCC /hpf (0-5)
--- NOTE | 2020-03-22 14:24 | NUR ---
REPORT TO CORBIN KIRK
--- NOTE | 2020-03-22 16:00 | NUR ---
NS BOLUS COMPLETE @ 1600
[2020-03-22 17:54] VITALS: BP 131/90; BMI 28.9
[2020-03-22 17:55] LABS: CHOL - HDL RATIO 5.6 ratio (2.3-4.1); LDL-HDL RATIO 3.8 ratio (1.5-3.5)
[2020-03-22 20:00] VITALS: BP 128/63
[2020-03-23] VITALS: BP 125/81
[2020-03-23 04:00] VITALS: BP 154/79; BP 176/74
[2020-03-23 07:03] LABS: BASOPHILS 0.6 % (0-2); EOSINOPHILS 3.7 % (0-7); HEMATOCRIT 39.4 % (36.0-48.0); HEMOGLOBIN 11.3 g/dL (12-16); IMMATURE GRANULOCYTES 0.2 % (0-5); LYMPHOCYTES 16.7 % (15-50); MCH 24.9 pg (26.0-34.0); MCHC 28.7 g/dL (31.0-37.0); MCV 86.8 fL (80.0-100.0); MEAN PLATELET VOLUME 10.2 fL (7.4-10.4); MONOCYTES 8.7 % (2-11); NEUTROPHILS 70.1 % (40-80); PLATELET COUNT 215 10x3/uL (130-400); RBC 4.54 10x6/uL (4.00-5.40); WBC 6.5 10x3/uL (4.8-10.8)
[2020-03-23 07:18] LABS: ALBUMIN 3.1 g/dL (3.4-5.0); ANION GAP 9.6 mmol/L (8-16); BILIRUBIN - TOTAL 0.3 mg/dL (0.2-1.3); CALCIUM 8.4 mg/dL (8.5-10.1); CARBON DIOXIDE 31.6 mmol/L (21.0-32.0); CREATININE - SERUM 1.6 mg/dL (0.6-1.3)
[2020-03-23 07:19] LABS: POTASSIUM - SERUM 3.2 mmol/L (3.5-5.1)
[2020-03-23 08:46] VITALS: BP 145/89
[2020-03-23 10:54] VITALS: BMI 28.8
[2020-03-23 12:19] VITALS: Ht 172.7 cm; Wt 86.2 kg
[2020-03-23 12:30] VITALS: BP 130/98
[2020-03-23 17:25] VITALS: BP 148/78
[2020-03-23 20:41] VITALS: BP 169/99
[2020-03-24 04:00] VITALS: BP 168/99
[2020-03-24 09:31] VITALS: BP 179/74
--- NOTE | 2020-03-24 11:01 | NUR ---
PT ALERT X 4. BREATH SOUNDS CLEAR, SOB, 2L O2 PER NC. WEAKNESS TO RIGHT SIDE. BUE DEPENDENT EDEMA. PT REPORTING PAIN OF 10/10, MEDICATED PER ORDERS, WILL CONTINUE TO MONITOR. BED LOW, CALL LIGHT IN REACH. NO OTHER NEEDS AT THIS TIME.
[2020-03-24 11:05] LABS: BASOPHILS 0.7 % (0-2); EOSINOPHILS 3.1 % (0-7); HEMATOCRIT 37.2 % (36.0-48.0); HEMOGLOBIN 10.9 g/dL (12-16); IMMATURE GRANULOCYTES 0.2 % (0-5); LYMPHOCYTES 20.8 % (15-50); MCH 25.1 pg (26.0-34.0); MCHC 29.3 g/dL (31.0-37.0); MCV 85.7 fL (80.0-100.0); MEAN PLATELET VOLUME 9.8 fL (7.4-10.4); MONOCYTES 10.7 % (2-11); NEUTROPHILS 64.5 % (40-80); PLATELET COUNT 203 10x3/uL (130-400); RBC 4.34 10x6/uL (4.00-5.40); RDW 19.5 % (11.5-14.5); WBC 5.5 10x3/uL (4.8-10.8)
[2020-03-24 11:25] LABS: ANION GAP 7.2 mmol/L (8-16); CALCIUM 8.9 mg/dL (8.5-10.1); CARBON DIOXIDE 30.7 mmol/L (21.0-32.0); PHOSPHOROUS 2.7 mg/dL (2.5-4.9); T4 THYROXIN - FREE 1.01 ng/dL (0.76-1.46)
[2020-03-24 11:26] LABS: CREATININE - SERUM 0.9 mg/dL (0.6-1.3); POTASSIUM - SERUM 3.9 mmol/L (3.5-5.1)
[2020-03-24] MEDS ORDERED: LEVOFLOXACIN500 MG PO (14:28)
[2020-03-24 17:25] VITALS: BP 154/80
[2020-03-24 20:00] VITALS: BP 153/80
[2020-03-25] VITALS: BP 162/79
[2020-03-25 04:00] VITALS: BP 159/86
[2020-03-25 06:42] LABS: HEMATOCRIT 38.5 % (36.0-48.0); HEMOGLOBIN 11.6 g/dL (12-16); MCH 25.7 pg (26.0-34.0); MCHC 30.1 g/dL (31.0-37.0); MCV 85.4 fL (80.0-100.0); MEAN PLATELET VOLUME 10.6 fL (7.4-10.4); PLATELET COUNT 219 10x3/uL (130-400); RBC 4.51 10x6/uL (4.00-5.40); RDW 19.9 % (11.5-14.5); WBC 5.4 10x3/uL (4.8-10.8)
[2020-03-25 06:55] LABS: CALCIUM 8.3 mg/dL (8.5-10.1); CHLORIDE - SERUM 104 mmol/L (98-107); MAGNESIUM - SERUM 1.9 mg/dL (1.8-2.4); SODIUM 136 mmol/L (136-145); UREA NITROGEN 11 mg/dL (7-18)
[2020-03-25 06:58] LABS: CALC OSMOLALITY 270 mosm/kg (275-300); CARBON DIOXIDE 21.7 mmol/L (21.0-32.0); CREATININE - SERUM 0.4 mg/dL (0.6-1.3); GLUCOSE 95 mg/dL (74-106); eGFR NON AFRICAN AMERICAN > 90 mL/min (90-120)
[2020-03-25 07:00] LABS: POTASSIUM - SERUM 6.7 mmol/L (3.5-5.1)
[2020-03-25 08:28] VITALS: BP 166/95
[2020-03-25 09:16] LABS: EOSINOPHILS 1 % (0-7); LYMPHOCYTES 25 % (15-50); MONOCYTES 12 % (2-11); NEUTROPHILS 62 % (40-80); PLATELET ESTIMATE NORMAL
--- NOTE | 2020-03-25 10:43 | NUR ---
PT ALERT X 4. BREATH SOUNDS CLEAR BILAT, 2L O2 PER NC. IV TO RIGHT UPPER ARM, PATENT, DRESSING CDI. +2 EDEMA TO RIGHT ARM. PT REPORTING PAIN OF 5/10, WILL CONTINUE TO MONITOR. BED LOW, CALL LIGHT IN REACH. NO OTHER NEEDS AT THIS TIME.
[2020-03-25 11:32] VITALS: BP 149/89
[2020-03-25 16:17] VITALS: BP 149/83
--- NOTE | 2020-03-25 17:16 | MORECARE ---
CASE MANAGEMENT DISCHARGE SUMMARY PATIENT: JULIO RUDOLPH ANN UNIT: [id number] ADM DATE: 03/22/20 AGE: 64 : 59 SEX: F ROOM/BED: D.2204 AUTHOR: GERARDO,DOC PHYSICIAN: REFERRING PHYSICIAN: EVELIA RIVERA MD DATE OF SERVICE: 03/25/20 Discharge Plan Patient Name: JULIO RUDOLPH Facility: [facility]:[place] : 1955 Planned Disposition: [facility] Facility Anticipated Discharge Date: Discharge Date: Expected LOS: Initial Reviewer: [email or web address] Initial Review Date: 03/22/2020 Generated: 03/25/20 6:16 pm Comments DCP- Discharge Planning Updated by [email or web address]: Belkis Bennett on 03/25/20 4:[address] Patient's sister, Christiane Villanueva ([phone]) has requested the patient be Discharged to [facility]. Patient is in agreement to this and signed a patient choice for [facility]. CM faxed required information to [phone]. Spoke with Leatha at [facility] ([phone]) to make her aware that information will be faxed. DCP- Discharge Planning Updated by [email or web address]: Belkis Bennett on 03/24/20 3:[address] DC Plan: [facility] therapy for Speech and physical therapy #[phone]. Faxed required information to [phone]. CM met with patient to discuss initial discharge planning. Patient is in agreement to proceed with the assessment. Patient reports that she lives at home alone, independently. Patient is alert/oriented. Stairs/steps: 2. PCP: Pattie Olivares. Pharmacy: [facility] with delivery. Patient states she has been able to obtain all of her prescribed medications. HHS: NO, but she does have [facility] that come in to help her 7 days/week. Patient is unsure of number of hours they come in. DME: Walker, cane, shower chair, handheld shower head, home O2, portable 02. Patient gives permission to speak with family members. Emergency contact: Christiane Lucio (sister) [phone], Zeke Hebert (mother) [phone]. 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 CM discussed the availability of HH, Rehab, SNF, OP Therapy, DME services. Patient chose [facility] for PT, Speech. Patient feels safe returning to her previous environment. Patient denies hospitalization within the past 30 days. 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 Transportation at time of discharge: Christiane (sister). External Providers External Provider: [facility] Next Contact Date: Service Request Date: Service Type: Resolution: Reviewer: Comments: Coverage Notice Reviewer: [id number] - Belkis Bennett Notice Issued Date-Time: 03/24/2020 15:22 Notice Type: Patient Choice Letter Notice Delivered To: Patient Relationship to Patient: Self Technical Agronomist Name: Julio Rudolph Delivery Method: HAND - Hand Delivered Lelia Days: Prior Verbal Notification: Recipient Understood Notice: Yes Recipient Signature: Yes Med Rec Note Co-signed by Attending: Coverage Notice Comment: Patient choice for [facility] OP Therapy signed/delivered to patient. Copy to the chart. Patient Name: JULIO RUDOLPH Page [phone] at 1716 All edits/amendments must be made on the electronic document DICTATION DATE: 03/25/201715 STAMPING DIE MAKER: KEVIN 03/25/201715 RPT#: [id number] DC DATE: STATUS: ADM IN [facility] [address] [place] [address] END OF REPORT
--- NOTE | 2020-03-25 19:53 | NUR ---
PATIENT SITTING UP IN CHAIR WITH NO S/S OF DISTRESS AND DENIES NEEDS AT THIS TIME. BED IN LOWEST POSITION AND CALL LIGHT WITHIN REACH. ENCOURAGED THE PATIENT TO CALL IF SHE HAS NEEDS. WILL CONTINUE TO MONITOR.
[2020-03-25 20:00] VITALS: BP 165/88
[2020-03-26] VITALS: BP 127/67
[2020-03-26 04:00] VITALS: BP 166/99
[2020-03-26 05:09] LABS: BASOPHILS 1.1 % (0-2); EOSINOPHILS 6.1 % (0-7); HEMATOCRIT 36.4 % (36.0-48.0); HEMOGLOBIN 10.5 g/dL (12-16); IMMATURE GRANULOCYTES 0.2 % (0-5); LYMPHOCYTES 27.5 % (15-50); MCH 24.8 pg (26.0-34.0); MCHC 28.8 g/dL (31.0-37.0); MCV 85.8 fL (80.0-100.0); MEAN PLATELET VOLUME 10.4 fL (7.4-10.4); MONOCYTES 11.5 % (2-11); NEUTROPHILS 53.6 % (40-80); PLATELET COUNT 253 10x3/uL (130-400); RBC 4.24 10x6/uL (4.00-5.40); RDW 19.9 % (11.5-14.5); WBC 4.6 10x3/uL (4.8-10.8)
[2020-03-26 05:15] LABS: ANION GAP 8.7 mmol/L (8-16); CALCIUM 8.9 mg/dL (8.5-10.1); CARBON DIOXIDE 30.3 mmol/L (21.0-32.0); CREATININE - SERUM 0.9 mg/dL (0.6-1.3); MAGNESIUM - SERUM 1.9 mg/dL (1.8-2.4); PHOSPHOROUS 3.7 mg/dL (2.5-4.9)
--- NOTE | 2020-03-26 07:45 | NUR ---
PT SITTING UP IN CHAIR AT SIDE OF BED. RESP EVEN AND UNLABORED. O2 @ 2L NC IN PLACE. ASSISTED PT TO BR WITH MINIMAL ASSIST. PT DOES REQUIRE ASSISTANCE WITH CLOTHING DUE TO RIGHT SIDE WEAKNESS. PT DENIES PAIN AT THIS TIME. ASSISTED BACK TO CHAIR AT THIS TIME. CHAIR ALARM ON AND IN PLACE. IV TO RIGHT UPPER ARM WITH NS @ 75ML/HR INFUSING VIA PUMP. SITE WITHOUT REDNESS OR EDEMA. DENIES FURTHER NEEDS AT THIS TIME. CL WITHIN REACH. ENCOURAGED TO CALL WITH NEEDS. CONTINUE POC
[2020-03-26 08:25] VITALS: BP 179/99
--- NOTE | 2020-03-26 10:47 | NUR ---
PT AMBULATING IN [facility] WITH PHYSICAL THERAPY. [facility]
[2020-03-26 12:13] VITALS: BP 150/93
--- NOTE | 2020-03-26 13:46 | NUR ---
Nutrition follow-up: Pt eating lunch at this time Diet order Low sodium PO itnake ~55% average of last 6 meals Labs reviewed Wt: 189# PO intake improved RDN following.
--- NOTE | 2020-03-26 14:24 | MORECARE ---
CASE MANAGEMENT DISCHARGE SUMMARY PATIENT: JULIO RUDOLPH ANN UNIT: [id number] ADM DATE: 03/22/20 AGE: 64 : 59 SEX: F ROOM/BED: D.2204 AUTHOR: GERARDO,DOC PHYSICIAN: REFERRING PHYSICIAN: EVELIA RIVERA MD DATE OF SERVICE: 03/26/20 Discharge Plan Patient Name: JULIO RUDOLPH Facility: [facility]:[place] : 1955 Planned Disposition: [facility] Facility Anticipated Discharge Date: Discharge Date: Expected LOS: Initial Reviewer: [id number] Initial Review Date: 03/22/2020 Generated: 03/26/20 3:24 pm Comments DCP- Discharge Planning Updated by [id number]: Belkis Bennett on 03/25/20 4:[address] Patient's sister, Christiane Villanueva ([phone]) has requested the patient be Discharged to [facility]. Patient is in agreement to this and signed a patient choice for [facility]. CM faxed required information to [phone]. Spoke with Leatha at [facility] ([phone]) to make her aware that information will be faxed. DCP- Discharge Planning Updated by [id number]: Belkis Bennett on 03/24/20 3:[address] DC Plan: [facility] OP therapy for Speech and physical therapy #[phone]. Faxed required information to [phone]. CM met with patient to discuss initial discharge planning. Patient is in agreement to proceed with the assessment. Patient reports that she lives at home alone, independently. Patient is alert/oriented. Stairs/steps: 2. PCP: Pattie Olivares. Pharmacy: [facility] with delivery. Patient states she has been able to obtain all of her prescribed medications. HHS: NO, but she does have [facility] [employer] that come in to help her 7 days/week. Patient is unsure of number of hours they come in. DME: Walker, cane, shower chair, handheld shower head, home O2, portable 02. Patient gives permission to speak with family members. Emergency contact: Christiane Lucio (sister) [phone], Zeke Hebert (mother) [phone]. 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 CM discussed the availability of HH, Rehab, SNF, OP Therapy, DME services. Patient chose [facility] for PT, Speech. Patient feels safe returning to her previous environment. Patient denies hospitalization within the past 30 days. 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 Transportation at time of discharge: Christiane (sister). DCPIA - Discharge Planning Initial Assessment Updated by [id number]: Augustina Herrera on 03/26/20 2:23 pm * Is the patient Alert and Oriented? Yes * PCP [facility] * [facility] * Preadmission Environment Home Alone * ADLs Independent * Equipment Rolling Walker * List name and contact numbers for known caregivers / representatives who currently or will assist patient after discharge: EULALIO [phone] * Verbal permission to speak to the caregivers and representatives has been obtained from the patient. N/A * Community resources currently utilized Assisted Living * Please name any agencies selected above. [facility] * Additional services required to return to the preadmission environment? Yes * Can the patient safely return to the preadmission environment? No * Has this patient been hospitalized within the prior 30 days at any hospital? Yes Coverage Notice Reviewer: [id number] - Belkis Bennett Notice Issued Date-Time: 03/24/2020 15:22 Notice Type: Patient Choice Letter Notice Delivered To: Patient Relationship to Patient: Self Manager Of Construction Name: Julio Rudolph Delivery Method: HAND - Hand Delivered Lelia Days: Prior Verbal Notification: Recipient Understood Notice: Yes Recipient Signature: Yes Med Rec Note Co-signed by Attending: Coverage Notice Comment: Patient choice for [facility] Therapy signed/delivered to patient. Copy to the chart. Reviewer: [id number] - Augustina Herrera Notice Issued Date-Time: 03/26/2020 14:20 Notice Type: IM Discharge Notice Notice Delivered To: Patient Relationship to Patient: Manager Of Construction Name: Delivery Method: HAND - Hand Delivered Lelia Days: Prior Verbal Notification: Recipient Understood Notice: Yes Recipient Signature: Yes Med Rec Note Co-signed by Attending: Coverage Notice Comment: Last DP export: 03/25/20 4:16 pm Patient Name: JULIO RUDOLPH Page [phone] at 1424 All edits/amendments must be made on the electronic document DICTATION DATE: 03/26/201423 LIGHT ARMORED RECONNAISSANCE OFFICER: KEVIN 03/26/201423 RPT#: [id number] DC DATE: STATUS: ADM IN [facility] [address] [place] [address] END OF REPORT
--- NOTE | 2020-03-26 14:35 | MORECARE ---
CASE MANAGEMENT DISCHARGE SUMMARY PATIENT: JULIO RUDOLPH ANN UNIT: [id number] ADM DATE: 03/22/20 AGE: 64 : 59 SEX: F ROOM/BED: D.2204 AUTHOR: GERARDO,DOC PHYSICIAN: REFERRING PHYSICIAN: EVELIA RIVERA MD DATE OF SERVICE: 03/26/20 Discharge Plan Patient Name: JULIO RUDOLPH Facility: [facility]:[place] : 1955 Planned Disposition: [facility] Facility Anticipated Discharge Date: Discharge Date: Expected LOS: Initial Reviewer: [id number] Initial Review Date: 03/22/2020 Generated: 03/26/20 3:34 pm Comments DCP- Discharge Planning Updated by [email or web address]: Augustina Herrera on 03/26/20 1:[address] CM MET WITH PATIENT ABOUT HER DISCHARGE PLAN, WE ARE WAITING ON [facility]. IMM SERVED AND EXPLAINED. CM TO FOLLOW AND ASSIST NEEDED DCP- Discharge Planning Updated by [id number]: Belkis Bennett on 03/25/20 4:[address] Patient's sister, Christiane Villanueva ([phone]) has requested the patient be Discharged to [facility]. Patient is in agreement to this and signed a patient choice for [facility]. CM faxed required information to [phone]. Spoke with Leatha at [facility] ([phone]) to make her aware that information will be faxed. DCP- Discharge Planning Updated by [id number]: Belkis Bennett on 03/24/20 3:[address] DC Plan: [facility]LY[facility] OP therapy for Speech and physical therapy #[phone]. Faxed required information to [phone]. CM met with patient to discuss initial discharge planning. Patient is in agreement to proceed with the assessment. Patient reports that she lives at home alone, independently. Patient is alert/oriented. Stairs/steps: 2. PCP: Pattie Olivares. [facility]. Patient states she has been able to obtain all of her prescribed medications. HHS: NO, but she does have [facility] that come in to help her 7 days/week. Patient is unsure of number of hours they come in. DME: Walker, cane, shower chair, handheld shower head, home O2, portable 02. Patient gives permission to speak with family members. Emergency contact: Christiane Lucio (sister) [phone], Zeke Hebert (mother) [phone]. 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 CM discussed the availability of HH, Rehab, SNF, OP Therapy, DME services. Patient chose SERVICE DESK ANALYST OP Therapy for PT, Speech. Patient feels safe returning to her previous environment. Patient denies hospitalization within the past 30 days. Patient denies the use of community resources PHOTO FINISHER. Transportation at time of discharge: Christiane (sister). DCPIA - Discharge Planning Initial Assessment Updated by [id number]: Augustina Herrera on 03/26/20 2:23 pm * Is the patient Alert and Oriented? Yes * PCP [facility] * Pharmacy [facility] * Preadmission Environment Home Alone * ADLs Independent * Equipment Rolling Walker * List name and contact numbers for known caregivers / representatives who currently or will assist patient after discharge: EULALIO [phone] * Verbal permission to speak to the caregivers and representatives has been obtained from the patient. N/A * Community resources currently utilized Assisted Living * Please name any agencies selected above. [employer] * Additional services required to return to the preadmission environment? Yes * Can the patient safely return to the preadmission environment? No * Has this patient been hospitalized within the prior 30 days at any hospital? Yes Coverage Notice Reviewer: [id number] - Belkis Bennett Notice Issued Date-Time: 03/24/2020 15:22 Notice Type: Patient Choice Letter Notice Delivered To: Patient Relationship to Patient: Self Concreter Name: Julio Elder Alex Delivery Method: HAND - Hand Delivered Lelia Days: Prior Verbal Notification: Recipient Understood Notice: Yes Recipient Signature: Yes Med Rec Note Co-signed by Attending: Coverage Notice Comment: Patient choice for [facility] DESK ANALYST OP Therapy signed/delivered to patient. Copy to the chart. Reviewer: [id number] - Augustina Herrera Notice Issued Date-Time: 03/26/2020 14:20 Notice Type: IM Discharge Notice Notice Delivered To: Patient Relationship to Patient: Concreter Name: Delivery Method: HAND - Hand Delivered Lelia Days: Prior Verbal Notification: Recipient Understood Notice: Yes Recipient Signature: Yes Med Rec Note Co-signed by Attending: Coverage Notice Comment: Last DP export: 03/26/20 1:24 pm Patient Name: JULIO RUDOLPH Page [phone] at 1435 All edits/amendments must be made on the electronic document DICTATION DATE: 03/26/201433 REFERENCE TEST CLERK: KEVIN 03/26/20 1434 RPT#: [id number] DC DATE: STATUS: ADM IN [facility] [address] [place] [address] END OF REPORT
--- NOTE | 2020-03-26 15:23 | NUR ---
OT NOTE: PT COMPLETED SIT TO STAND WITH CCGA. PT COMPLETED ADL MOB WITH CGA. PT COMPLETED FACE AND HAND HYGIENE WITH SETUP. PT REQUIRED MIN A FOR R HAND HYGIENE. [id number] THANK YOU,RUBI JOSEPH
[2020-03-26 16:52] VITALS: BP 154/66
--- NOTE | 2020-03-26 18:20 | NUR ---
ASSISTED PT TO BSC FROM CHAIR. PT VOIDED THEN ASSISTED TO BED. JOSIAH ALARM PLACED AND TURNED ON. PT DENIES FURTHER NEEDS AT THIS TIME. CL WITHIN REACH. ENCORUAGED TO CALL WITH NEEDS.
--- NOTE | 2020-03-26 19:40 | NUR ---
AWAKE AND ALERT. SITTING UP IN BED. ORIENTED TO SELF ONLY. CONFUSED/FORGETFUL. RESP NONLABORED. O2 @ 2L/NC. SCDS IN USE BILAT. EDEMA NOTED TO BLE. RT SIDED WEAKNESS NOTED. SPEECH SLURRED/THICK TONGUED. NS @ 75 MLHR INFUSING IN RT AC WITHOUT DIFF. AMB WITH ASSIST X1. DENIES PAIN. NO DISTRESS. SR ELEVATED X2. CL IN REACH. JOSIAH ALARM ON FOR PT SAFETY.
[2020-03-26 20:14] VITALS: BP 163/92
[2020-03-27] VITALS: BP 168/87
--- NOTE | 2020-03-27 00:05 | NUR ---
RESTING QUIETLY WITH EYES CLOSED. RESP NONLABORED. NO DISTRESS. HAS SLEPT WELL SO FAR THIS SHIFT. SR ELEVATED X2. CL IN REACH. JOSIAH ALARM ON.
[2020-03-27 04:40] VITALS: BP 170/89
[2020-03-27 05:33] LABS: BASOPHILS 0.6 % (0-2); HEMATOCRIT 35.6 % (36.0-48.0); HEMOGLOBIN 10.7 g/dL (12-16); LYMPHOCYTES 27.8 % (15-50); MCH 25.5 pg (26.0-34.0); MCHC 30.1 g/dL (31.0-37.0); MCV 84.8 fL (80.0-100.0); MONOCYTES 11.1 % (2-11); NEUTROPHILS 54.5 % (40-80); PLATELET COUNT 220 10x3/uL (130-400); RDW 19.8 % (11.5-14.5); WBC 4.9 10x3/uL (4.8-10.8)
[2020-03-27 05:43] LABS: CALC OSMOLALITY 280 mosm/kg (275-300); CARBON DIOXIDE 29.6 mmol/L (21.0-32.0); CHLORIDE - SERUM 104 mmol/L (98-107); CREATININE - SERUM 0.8 mg/dL (0.6-1.3); GLUCOSE 104 mg/dL (74-106); MAGNESIUM - SERUM 1.9 mg/dL (1.8-2.4); PHOSPHOROUS 4.2 mg/dL (2.5-4.9); POTASSIUM - SERUM 4.1 mmol/L (3.5-5.1); SODIUM 141 mmol/L (136-145); UREA NITROGEN 13 mg/dL (7-18); eGFR NON AFRICAN AMERICAN 77 mL/min (90-120)
--- NOTE | 2020-03-27 07:19 | NUR ---
PT RESTING IN BED. NO ACUTE DISTRESS NOTED. O2 @ 2L NC IN PLACE. PT DENIES PAIN AT THIS TIME. RIGHT SIDE WEAKNESS OBSERVED. IV TO RIGHT UPPER ARM WITH NS @ 75ML/HR INFUSING VIA PUMP. SITE WITHOUT REDNESS OR EDEMA. DENIES FURTHER NEEDS AT THIS TIME. CL WITHIN REACH. ENCOURAGED TO CALL WITH NEEDS. CONTINUE POC
[2020-03-27 08:02] VITALS: BP 151/88
[2020-03-27 09:11] LABS: THYROGLOBULIN ANTIBODY 60.8 IU/mL (0.0-0.9); THYROID PEROXIDASE ABS >600 IU/mL (0-34)
--- NOTE | 2020-03-27 11:47 | NUR ---
PT SITTING UP IN CHAIR AT BEDSIDE. RESP EVEN AND UNLABORED. DENIES NEEDS AT THS TIME. CL WITHIN REACH. ENCOURAGED TO CALL WITH NEEDS.
[2020-03-27 12:37] VITALS: BP 177/95
[2020-03-27] MEDS ORDERED: PRAVACHOL20 MG PO (12:53)
[2020-03-27] MEDS ORDERED: ASPIRIN325 MG PO (12:53)
--- NOTE | 2020-03-27 13:33 | MORECARE ---
CASE MANAGEMENT DISCHARGE SUMMARY PATIENT: RENU RUDOLPH ANN UNIT: [id number] ADM DATE: 03/22/20 AGE: 64 : 59 SEX: F ROOM/BED: D.2204 AUTHOR: GERARDO,DOC PHYSICIAN: REFERRING PHYSICIAN: EVELIA RIVERA MD DATE OF SERVICE: 03/27/20 Discharge Plan Patient Name: RENU RUDOLPH Facility: [facility]:[place] : 1955 Planned Disposition: Group Home Facility Anticipated Discharge Date: Discharge Date: Expected LOS: Initial Reviewer: [id number] Initial Review Date: 03/22/2020 Generated: 03/27/20 2:33 pm Comments DCP- Discharge Planning Updated by [id number]: Augustina Herrera on 03/27/20 12:[address] [facility]IENT [facility], THEY WILL PICKHER UP SHE WILL BE GOING TO A SKILLED BED, ATTEMPTED TO CALL HER MOTHER TO LET HER KNOW, BUT SHE DID NOT ANSWER. CM TO FOLLOW AND ASSIST NEEDED DCP- Discharge Planning Updated by [email or web address]: Augustina Herrera on 03/26/20 1:[address] CM MET WITH PATIENT ABOUT HER DISCHARGE PLAN, WE ARE WAITING ON [facility]. IMM SERVED AND EXPLAINED. CM TO FOLLOW AND ASSIST NEEDED DCP- Discharge Planning Updated by [id number]: Belkis Bennett on 03/25/20 4:[address] Patient's sister, Christiane Villanueva ([phone]) has requested the patient be Discharged to [facility]. Patient is in agreement to this and signed a patient choice for [facility]. CM faxed required information to [phone]. Spoke with Leahta at [facility] ([phone]) to make her aware that information will be faxed. DCP- Discharge Planning Updated by [email or web address]: Belkis Bennett on 03/24/20 3:[address] DC Plan: [facility] OP therapy for Speech and physical therapy #[phone]. Faxed required information to [phone]. CM met with patient to discuss initial discharge planning. Patient is in agreement to proceed with the assessment. Patient reports that she lives at home alone, independently. Patient is alert/oriented. Stairs/steps: 2. PCP: Pattie Olivares. Pharmacy: [facility] with delivery. Patient states she has been able to obtain all of her prescribed medications. HHS: NO, but she does have [facility] [employer] that come in to help her 7 days/week. Patient is unsure of number of hours they come in. DME: Walker, cane, shower chair, handheld shower head, home O2, portable 02. Patient gives permission to speak with family members. Emergency contact: Christiane Lucio (sister) [phone], Zeke Hebert (mother) [phone]. 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 CM discussed the availability of HH, Rehab, SNF, OP Therapy, DME services. Patient chose [facility] A[facility] OP Therapy for PT, Speech. Patient feels safe returning to her previous environment. Patient denies hospitalization within the past 30 days. Patient denies the use of community resources CORDAGE SALES REPRESENTATIVE. Transportation at time of discharge: Christiane (sister). DCPIA - Discharge Planning Initial Assessment Updated by [email or web address]: Augustina Herrera on 03/26/20 2:23 pm * Is the patient Alert and Oriented? Yes * PCP [facility] * [facility] * Preadmission Environment Home Alone * ADLs Independent * Equipment Rolling Walker * List name and contact numbers for known caregivers / representatives who currently or will assist patient after discharge: EULALIO [phone] * Verbal permission to speak to the caregivers and representatives has been obtained from the patient. N/A * Community resources currently utilized Assisted Living * Please name any agencies selected above. [facility] * Additional services required to return to the preadmission environment? Yes * Can the patient safely return to the preadmission environment? No * Has this patient been hospitalized within the prior 30 days at any hospital? Yes Coverage Notice Reviewer: [id number] Solange Bennett Notice Issued Date-Time: 03/24/2020 15:22 Notice Type: Patient Choice Letter Notice Delivered To: Patient Relationship to Patient: Self Marine Machinist Name: Renu Rudolph Delivery Method: HAND - Hand Delivered Lelia Days: Prior Verbal Notification: Recipient Understood Notice: Yes Recipient Signature: Yes Med Rec Note Co-signed by Attending: Coverage Notice Comment: Patient choice for [facility] A[facility] OP Therapy signed/delivered to patient. Copy to the chart. Reviewer: [id number] - Augustina Herrera Notice Issued Date-Time: 03/26/2020 14:20 Notice Type: IM Discharge Notice Notice Delivered To: Patient Relationship to Patient: Marine Machinist Name: Delivery Method: HAND - Hand Delivered Lelia Days: Prior Verbal Notification: Recipient Understood Notice: Yes Recipient Signature: Yes Med Rec Note Co-signed by Attending: Coverage Notice Comment: Last DP export: 03/26/20 1:35 pm Patient Name: RENU RUDOLPH Page [phone] at 1333 All edits/amendments must be made on the electronic document DICTATION DATE: 03/27/20 1333 CONTRACT CLERK AUTOMOBILE: KEVIN 03/27/20 1333 RPT#: [id number] DC DATE: STATUS: ADM IN [facility] [address] [place] [address] END OF REPORT
--- NOTE | 2020-03-27 15:37 | MORECARE ---
CASE MANAGEMENT DISCHARGE SUMMARY PATIENT: RENU RUDOLPH ANN UNIT: [id number] ADM DATE: 03/22/20 AGE: 64 : 59 SEX: F ROOM/BED: D.2204 AUTHOR: GERARDO,DOC PHYSICIAN: REFERRING PHYSICIAN: EVELIA RIVERA MD DATE OF SERVICE: 03/27/20 Discharge Plan Patient Name: RENU RUDOLPH Facility: [facility]:[place] : 1955 Planned Disposition: Prison Facility Anticipated Discharge Date: Discharge Date: 03/27/2020 Expected LOS: 0 Initial Reviewer: [email or web address] Initial Review Date: 03/22/2020 Generated: 03/27/20 4:37 pm Comments DCP- Discharge Planning Updated by [email or web address]: Augustina Herrera on 03/27/20 12:[address] PATIENT DISCHARGING TO [facility], THEY WILL PICKHER UP SHE WILL BE GOING TO A SKILLED BED, ATTEMPTED TO CALL HER MOTHER TO LET HER KNOW, BUT SHE DID NOT ANSWER. CM TO FOLLOW AND ASSIST NEEDED DCP- Discharge Planning Updated by [id number]: Augustina Herrera on 03/26/20 1:[address] CM MET WITH PATIENT ABOUT HER DISCHARGE PLAN, WE ARE WAITING ON [facility] FOR [facility]. IMM SERVED AND EXPLAINED. CM TO FOLLOW AND ASSIST NEEDED DCP- Discharge Planning Updated by [id number]: Belkis Bennett on 03/25/20 4:[address] Patient's sister, Christiane Villanueva ([phone]) has requested the patient be Discharged to [facility]. Patient is in agreement to this and signed a patient choice for [facility]. CM faxed required information to [phone]. Spoke with Leatha at [facility] ([phone]) to make her aware that information will be faxed. DCP- Discharge Planning Updated by [email or web address]: Belkis Bennett on 03/24/20 3:[address] DC Plan: [facility] for Speech and physical therapy #[phone]. Faxed required information to [phone]. CM met with patient to discuss initial discharge planning. Patient is in agreement to proceed with the assessment. Patient reports that she lives at home alone, independently. Patient is alert/oriented. Stairs/steps: 2. PCP: Pattie Olivares. Pharmacy: [facility] with delivery. Patient states she has been able to obtain all of her prescribed medications. HHS: NO, but she does have [facility] that come in to help her 7 days/week. Patient is unsure of number of hours they come in. DME: Walker, cane, shower chair, handheld shower head, home O2, portable 02. Patient gives permission to speak with family members. Emergency contact: Christiane Lucio (sister) [phone], Zeke Hebert (mother) [phone]. Patient is Independent with all ADL's, medication management OFFICE AUTOMATION TECHNICIAN. CM discussed the availability of HH, Rehab, SNF, OP Therapy, DME services. Patient chose [facility] for PT, Speech. Patient feels safe returning to her previous environment. Patient denies hospitalization within the past 30 days. Patient denies the use of community resources OFFICE AUTOMATION TECHNICIAN. Transportation at time of discharge: Christiane (sister). DCPIA - Discharge Planning Initial Assessment Updated by [email or web address]: Augustina Herrera on 03/26/20 2:23 pm * Is the patient Alert and Oriented? Yes * PCP MERARY * [facility]acy [facility] * Preadmission Environment Home Alone * ADLs Independent * Equipment Rolling Walker * List name and contact numbers for known caregivers / representatives who currently or will assist patient after discharge: EULALIO [phone] * Verbal permission to speak to the caregivers and representatives has been obtained from the patient. N/A * Community resources currently utilized Assisted Living * Please name any agencies selected above. Any.DO * Additional services required to return to the preadmission environment? Yes * Can the patient safely return to the preadmission environment? No * Has this patient been hospitalized within the prior 30 days at any hospital? Yes Coverage Notice Reviewer: [id number] Solange Bennett Notice Issued Date-Time: 03/24/2020 15:22 Notice Type: Patient Choice Letter Notice Delivered To: Patient Relationship to Patient: Self Felling Machine Operator Name: Renu Rudolph Delivery Method: HAND - Hand Delivered Lelia Days: Prior Verbal Notification: Recipient Understood Notice: Yes Recipient Signature: Yes Med Rec Note Co-signed by Attending: Coverage Notice Comment: Patient choice for [facility] signed/delivered to patient. Copy to the chart. Reviewer: [id number] - Augustina Herrera Notice Issued Date-Time: 03/26/2020 14:20 Notice Type: IM Discharge Notice Notice Delivered To: Patient Relationship to Patient: Felling Machine Operator Name: Delivery Method: HAND - Hand Delivered Lelia Days: Prior Verbal Notification: Recipient Understood Notice: Yes Recipient Signature: Yes Med Rec Note Co-signed by Attending: Coverage Notice Comment: Last DP export: 03/27/20 12:33 pm Patient Name: RENU RUDOLPH Page [id number] at 1537 All edits/amendments must be made on the electronic document DICTATION DATE: 03/27/20 1537 ZIG ZAG STITCHER: KEVIN 03/27/20 1537 RPT#: [id number] DC DATE:03/27/20 STATUS: DIS IN [facility] [address] [place] [address] END OF REPORT
--- NOTE | 2020-03-27 16:05 | NUR ---
OT NOTE: PT COMPLETED BED MOB TASKS WITH MOD/MIN A. PT COMPLETED UB HYGIENE TASKS WITH LUE WITH SETUP. [id number] THANK YOU,RUBI JOSEPH
== END 2020-03-27 13:42 | DRG 64 ==
LOC: D.ER 11:50 → D.MS 14:06
PROVIDERS: Family Medicine; ADMIT Family Medicine; ATTEND Family Medicine
DX: I63.81 Other cerebral infarction due to occlusion or stenosis of small artery (principal); G93.6 Cerebral edema; N17.9 Acute kidney failure, unspecified; N39.0 Urinary tract infection, site not specified; R40.2362 Coma scale, best motor response, obeys commands, at arrival to emergency department; R40.2242 Coma scale, best verbal response, confused conversation, at arrival to emergency department; J44.9 Chronic obstructive pulmonary disease, unspecified; E03.9 Hypothyroidism, unspecified; K21.9 Gastro-esophageal reflux disease without esophagitis; I10 Essential (primary) hypertension; F17.200 Nicotine dependence, unspecified, uncomplicated; I48.0 Paroxysmal atrial fibrillation

== ENCOUNTER 2020-07-16 15:39 | Inpatient (IN) | payer MEDICARE, MEDICAID ==
[~2020-07-16] VITALS: Ht 165.1 cm; Wt 79.7 kg
[~2020-07-16 15:39] MED LIST changes: +ADVIL PM PO; +ASPIRIN325 MG PO; +K-TAB10 MEQ PO; +LEVOFLOXACIN500 MG PO; +PRAVACHOL20 MG PO
--- NOTE | 2020-07-16 21:15 | NUR ---
PT PLACED ON BIPAP PER R/T. SOME LAB OBTAINED AFTER MULTIPLE ATTEMPTS. LONGO IN PLACE- DRAINING CLEAR YELLOW URINE.
[2020-07-16 21:21] LABS: BASOPHILS 1.5 % (0-2); EOSINOPHILS 4.6 % (0-7); HEMATOCRIT 42.3 % (36.0-48.0); HEMOGLOBIN 12.8 g/dL (12-16); IMMATURE GRANULOCYTES 0.2 % (0-5); LYMPHOCYTES 29.2 % (15-50); MCHC 30.3 g/dL (31.0-37.0); MCV 95.7 fL (80.0-100.0); MEAN PLATELET VOLUME 10.3 fL (7.4-10.4); MONOCYTES 12.7 % (2-11); NEUTROPHILS 51.8 % (40-80); RBC 4.42 10x6/uL (4.00-5.40); RDW 14.6 % (11.5-14.5); WBC 5.8 10x3/uL (4.8-10.8)
[2020-07-16 21:30] LABS: PLATELET COUNT 153 10x3/uL (130-400)
[2020-07-16 21:35] LABS: ANION GAP 6.8 mmol/L (8-16); CALCIUM 8.6 mg/dL (8.5-10.1); CARBON DIOXIDE 37.5 mmol/L (21.0-32.0); CREATININE - SERUM 1.1 mg/dL (0.6-1.3); POTASSIUM - SERUM 4.3 mmol/L (3.5-5.1)
[2020-07-16 21:53] LABS: ALBUMIN 3.4 g/dL (3.4-5.0); BILIRUBIN - TOTAL 0.35 mg/dL (0.2-1.3); MAGNESIUM - SERUM 1.9 mg/dL (1.8-2.4); PROTEIN - SERUM 7.2 g/dL (6.4-8.2)
--- NOTE | 2020-07-16 22:13 | NUR ---
COVID SWAB TO LAB
[2020-07-16 22:15] LABS: BILIRUBIN NEGATIVE (NEGATIVE); KETONE NEGATIVE (NEGATIVE); NITRITE NEGATIVE (NEGATIVE); UROBILINOGEN NORMAL mg/dL (< 2)
[2020-07-16 22:20] LABS: UDS - AMPHET NEGATIVE QUAL (NEGATIVE); UDS - BARB NEGATIVE QUAL (NEGATIVE); UDS - BENZO NEGATIVE QUAL (NEGATIVE); UDS - COCAINE NEGATIVE QUAL (NEGATIVE); UDS - OPIATE NEGATIVE QUAL (NEGATIVE); UDS - PCP NEGATIVE QUAL (NEGATIVE); UDS - THC NEGATIVE QUAL (NEGATIVE)
--- NOTE | 2020-07-17 | NUR ---
PT RESTING WITH EYES CLOSED. BIPAP IN PLACE.
--- NOTE | 2020-07-17 02:08 | NUR ---
WILL YANCEY IN TO SEE PATIENT.
[2020-07-17 03:26] LABS: BASOPHILS 0.7 % (0-2); EOSINOPHILS 5.1 % (0-7); HEMATOCRIT 40.2 % (36.0-48.0); HEMOGLOBIN 11.6 g/dL (12-16); IMMATURE GRANULOCYTES 0.4 % (0-5); LYMPHOCYTES 20.6 % (15-50); MCH 27.8 pg (26.0-34.0); MCHC 28.9 g/dL (31.0-37.0); MCV 96.2 fL (80.0-100.0); MEAN PLATELET VOLUME 10.1 fL (7.4-10.4); MONOCYTES 12.6 % (2-11); NEUTROPHILS 60.6 % (40-80); PLATELET COUNT 182 10x3/uL (130-400); RBC 4.18 10x6/uL (4.00-5.40); RDW 14.3 % (11.5-14.5); WBC 5.5 10x3/uL (4.8-10.8)
--- NOTE | 2020-07-17 03:26 | NUR ---
PT ALERT. TURNED TV ON FOR PATIENT. CON'T TO USE BIPAP. WILL MONITOR.
[2020-07-17 03:37] LABS: APTT 29.1 SECONDS (22.8-39.4); INR 1.13 (0.85-1.17); PROTIME 14.4 SECONDS (11.6-15.0)
[2020-07-17 03:38] LABS: D-DIMER-QUANTITATIVE 0.49 ug/mLFEU (0.20-0.54)
[2020-07-17 03:53] LABS: ALBUMIN 3.2 g/dL (3.4-5.0); ALKALINE PHOSPHATASE 82 U/L (30-120); ALT (SGPT) 18 U/L (10-68); BILIRUBIN - TOTAL 0.43 mg/dL (0.2-1.3); CALCIUM 8.5 mg/dL (8.5-10.1); CHLORIDE - SERUM 101 mmol/L (98-107); CKMB 5.6 U/L (0.0-3.6); CREATINE KINASE 277 UL (21-215); CREATININE - SERUM 0.9 mg/dL (0.6-1.3); GLUCOSE 98 mg/dL (74-106); MAGNESIUM - SERUM 1.8 mg/dL (1.8-2.4); PHOSPHOROUS 3.3 mg/dL (2.5-4.9); POTASSIUM - SERUM 3.7 mmol/L (3.5-5.1); PROTEIN - SERUM 6.9 g/dL (6.4-8.2); SODIUM 141 mmol/L (136-145); THYROID STIMULATING HORMONE 8.71 uIU/mL (0.36-3.74); eGFR NON AFRICAN AMERICAN 67 mL/min (90-120)
[2020-07-17 03:55] LABS: CALC OSMOLALITY 278 mosm/kg (275-300); TROPONIN-I < 0.017 ng/mL (0.000-0.060); UREA NITROGEN 8 mg/dL (7-18)
[2020-07-17 03:58] LABS: CARBON DIOXIDE 40.7 mmol/L (21.0-32.0)
--- NOTE | 2020-07-17 04:15 | NUR ---
REPOSITIONED IN BED. BIPAP CON'T. 900CC'S OF URINE EMPTIED FROM LONGO.
[2020-07-17 04:30] VITALS: BP 132/77
[2020-07-17 08:46] VITALS: BP 140/80
[2020-07-17 11:42] VITALS: BP 137/76
--- NOTE | 2020-07-17 11:43 | NUR ---
FOUND BY ELIE IRWIN STANDING AT END OF BED LOOKING FOR HER SISTER. ASSISTED BACK TO BED. NO ACUTE DISTRESS NOTED.
[2020-07-17 14:01] VITALS: BP 148/93
[2020-07-17 18:58] VITALS: BP 180/97
--- NOTE | 2020-07-17 19:30 | NUR ---
REPORT TO CORBIN ALTAMIRANO
--- NOTE | 2020-07-17 22:54 | NUR ---
PLACED PT ON BILEVEL 14/ 45% PT SP02 100% AND HOLDING ZERO CYANOSIS NO IMMEDIATE S/S RESP DISTRESS NOTED
--- NOTE | 2020-07-17 23:48 | NUR ---
EMPTIED 1400CC OF URINE FROM INDWELLING LONGO CATHETER.
[2020-07-18] VITALS (7 sets, daily range): BP systolic 129–159; BP diastolic 79–95; Ht 165.1 cm; Wt 79.7 kg
--- NOTE | 2020-07-18 00:52 | NUR ---
ROCEPHIN INFUSION COMPLETE. HAD TO RELOCATE IV SITE.
[2020-07-18 06:19] LABS: CALC OSMOLALITY 274 mosm/kg (275-300); CALCIUM 8.8 mg/dL (8.5-10.1); CARBON DIOXIDE 34.4 mmol/L (21.0-32.0); CHLORIDE - SERUM 96 mmol/L (98-107); CREATININE - SERUM 0.7 mg/dL (0.6-1.3); GLUCOSE 105 mg/dL (74-106); PHOSPHOROUS 3.2 mg/dL (2.5-4.9); SODIUM 138 mmol/L (136-145); UREA NITROGEN 10 mg/dL (7-18); eGFR NON AFRICAN AMERICAN 90 mL/min (90-120)
[2020-07-18 06:37] LABS: BASOPHILS 0.5 % (0-2); EOSINOPHILS 2.9 % (0-7); HEMATOCRIT 44.3 % (36.0-48.0); HEMOGLOBIN 13.4 g/dL (12-16); IMMATURE GRANULOCYTES 0.1 % (0-5); LYMPHOCYTES 15.2 % (15-50); MCH 28.4 pg (26.0-34.0); MCHC 30.2 g/dL (31.0-37.0); MEAN PLATELET VOLUME 10.6 fL (7.4-10.4); MONOCYTES 9.8 % (2-11); NEUTROPHILS 71.5 % (40-80); PLATELET COUNT 199 10x3/uL (130-400); RBC 4.72 10x6/uL (4.00-5.40); RDW 14.5 % (11.5-14.5)
[2020-07-18 06:43] LABS: WBC 7.4 10x3/uL (4.8-10.8)
[2020-07-18 06:44] LABS: MCV 93.9 fL (80.0-100.0)
--- NOTE | 2020-07-18 16:55 | EC ---
PATIENT:JULIO RUDOLPH ANN DATE OF SERVICE: 07/16/20 SEX: F MEDICAL RECORD: [id number] DATE OF : [birth year] LOCATION:D.M2 D.210 AGE OF PATIENT: 64 ADMISSION DATE: 07/16/20 REFERRING PHYSICIAN: INTERPRETING PHYSICIAN: TSERING ARELLANO MD ECHOCARDIOGRAM REPORT ECHO CHARGES 4 ECHO COMPLETE Date: 07/17/20 CLINICAL DIAGNOSIS: Chf, HTN CHF, HTN ECHOCARDIOGRAPHIC MEASUREMENTS (adult normal given) AC root (d.<3.7cm) 3.0 cm LV Septum d (<1.2 cm> 1.1 cm Valve Excursion cm LV Septum (systole) 1.3 cm Left Atria (s.<4.0cm> 3.4 cm LVPW d(<1.2cm) 1.0 cm RV (d.<2.3cm) 4.0 cm LVPW (sytole) 1.3 cm LV diastole(<5.6CM) 4.0 cm MV E-F(>70mm/sec) cm LV systole 2.6 cm LVOT Diameter 1.6 cm MV exc.(>10mm) cm Est.ejection fraction (50-75%) 55 % DOPPLER: LVIT cm/sec A 105 cm/sec E 79 cm/sec LA cm/sec RVSP 38 mmHg LVOT 160 cm/sec AOP1/2T m/s Asc. Ao 192 cm/sec RVOT cm/sec RA cm/sec PA cm/sec AV Gradient Peak 17 mmHg AV Mean 7 mmHg AV Area 1.8 cm MV Gradient Peak 4.2 mmHg MV Mean 2.3 mmHg MV Area cm COMMENTS: Copier And Printer Field Technician: Bid Manager: Luis Palencia TAPE# pacs Pericardial Effusion N DATE OF SERVICE: Adequate 2D, color flow imaging, spectral Doppler, and M-Mode. No LVH. LV internal dimension is normal. Wall motion is normal. EF is greater than or equal to 55%. Aortic valve is tricuspid. There is no evidence of stenosis by Doppler interrogation. Trivial AI by color flow imaging. Left atrium is normal at 3.4 cm. Mitral valve shows no prolapse. Trace MR. Right-sided chambers are grossly normal. Trace TR. ECHOCARDIOGRAM REPORT [id number] JULIO RUDOLPH ANN TRANSINT:[id number] Voice Confirmation ID: [id number] DOCUMENT ID: [id number] TSERING ARELLANO MD at 1655 CC: [id number] DICTATION DATE: 07/18/20829 RADIOLOGY ASSISTANT: 07/18/20 1237 ADM IN [place] [id number] [place] [id number]
--- NOTE | 2020-07-19 03:08 | NUR ---
I have reviewed this patient and I concur with the Shift Assessment completed by the Licensed Practical Nurse today this shift.
[2020-07-19 04:00] VITALS: BP 142/84
[2020-07-19 06:05] LABS: BASOPHILS 0.6 % (0-2); EOSINOPHILS 5.1 % (0-7); HEMATOCRIT 41.1 % (36.0-48.0); HEMOGLOBIN 12.5 g/dL (12-16); IMMATURE GRANULOCYTES 0.1 % (0-5); LYMPHOCYTES 18.6 % (15-50); MCH 28.1 pg (26.0-34.0); MCHC 30.4 g/dL (31.0-37.0); MCV 92.4 fL (80.0-100.0); MONOCYTES 13.3 % (2-11); NEUTROPHILS 62.3 % (40-80); PLATELET COUNT 235 10x3/uL (130-400); RBC 4.45 10x6/uL (4.00-5.40); RDW 14.6 % (11.5-14.5); WBC 6.9 10x3/uL (4.8-10.8)
[2020-07-19 06:36] LABS: CALCIUM 8.9 mg/dL (8.5-10.1); CARBON DIOXIDE 37.2 mmol/L (21.0-32.0); PHOSPHOROUS 3.8 mg/dL (2.5-4.9)
[2020-07-19 06:41] LABS: CREATININE - SERUM 1.1 mg/dL (0.6-1.3); POTASSIUM - SERUM 3.2 mmol/L (3.5-5.1)
[2020-07-19 08:10] VITALS: BP 160/87
[2020-07-19 11:44] VITALS: BP 160/80; BP 160/87
--- NOTE | 2020-07-19 14:14 | MORECARE ---
CASE MANAGEMENT DISCHARGE SUMMARY PATIENT: JULIO RUDOLPH ANN UNIT: [id number] ADM DATE: 07/16/20 AGE: 64 : 59 SEX: F ROOM/BED: D.2104 AUTHOR: DEBBIE CARRILLO PHYSICIAN: REFERRING PHYSICIAN: KAVYA BROWNLEE MD DATE OF SERVICE: 07/19/20 Discharge Plan Patient Name: JULIO RUDOLPH [facility] [facility] 1955 Planned Disposition: Home with Home Health Anticipated Discharge Date: Discharge Date: Expected LOS: Initial Reviewer: [email or web address] Initial Review Date: 07/19/2020 Generated: 07/19/20 3:13 pm Patient Name: JULIO RUDOLPH Page [id number] at 1414 All edits/amendments must be made on the electronic document DICTATION DATE: 07/19/20 141 INTENSIVE CARE MEDICINE SPECIALIST: KEVIN 07/19/20 141 RPT#: [id number] DC DATE: STATUS: ADM IN [facility] [address] [place] [address] END OF REPORT
--- NOTE | 2020-07-19 14:25 | MORECARE ---
CASE MANAGEMENT DISCHARGE SUMMARY PATIENT: JULIO RUDOLPH ANN UNIT: [id number] ADM DATE: 07/16/20 AGE: 64 : 59 SEX: F ROOM/BED: D.2106 AUTHOR: DEBBIE CARRILLO PHYSICIAN: REFERRING PHYSICIAN: KAVYA BROWNLEE MD DATE OF SERVICE: 07/19/20 Discharge Plan Patient Name: JULIO RUDOLPH Facility: [facility]:[place] : 1955 Planned Disposition: Home with Home Health Anticipated Discharge Date: Discharge Date: Expected LOS: Initial Reviewer: [email or web address] Initial Review Date: 07/19/2020 Generated: 07/19/20 3:24 pm DCPIA - Discharge Planning Initial Assessment Updated by [email or web address]: Venecia Marquez on 07/19/20 2:20 pm * Is the patient Alert and Oriented? Yes * How many steps to enter\\exit or inside your home? 0/0 * PCP Dr. Lowry * Pharmacy [place] * Preadmission Environment Home Alone * ADLs Partial Dependent * Partial ADLs (Assistance needed) Ambulation Bathing Dressing Medication Management * Equipment Cane Nebulizer Other Oxygen Shower Chair * Other Equipment Access to wheelchair * List name and contact numbers for known caregivers / representatives who currently or will assist patient after discharge: Eloisa Hebert - mother - [phone] Christiane "Sandy" Villanueva - sister - [phone] * Verbal permission to speak to the caregivers and representatives has been obtained from the patient. Yes * Community resources currently utilized Home Health Private Duty Care * Please name any agencies selected above. [facility] for oxygen DME * Additional services required to return to the preadmission environment? No * Can the patient safely return to the preadmission environment? Yes * Has this patient been hospitalized within the prior 30 days at any hospital? No Last DP export: 07/19/20 1:14 p Patient Name: JULIO RUDOLPH Page [id number] at 1421 All edits/amendments must be made on the electronic document DICTATION DATE: 07/19/20 1424 AUDIO EXPERIENCE EXPERT: KEVIN 07/19/20 1424 RPT#: [id number] DC DATE: STATUS: ADM IN [facility] [address] [place] [address] END OF REPORT
--- NOTE | 2020-07-19 14:34 | MORECARE ---
CASE MANAGEMENT DISCHARGE SUMMARY PATIENT: JULIO RUDOLPH ANN UNIT: [id number] ADM DATE: 07/16/20 AGE: 64 : 59 SEX: F ROOM/BED: D.4029 AUTHOR: GERARDO,DOC PHYSICIAN: REFERRING PHYSICIAN: KAVYA BROWNLEE MD DATE OF SERVICE: 07/19/20 Discharge Plan Patient Name: JULIO RUDOLPH Facility: [facility]:[place] : 1955 Planned Disposition: Home with Home Health Anticipated Discharge Date: Discharge Date: Expected LOS: Initial Reviewer: [email or web address] Initial Review Date: 07/19/2020 Generated: 07/19/20 3:33 pm Comments DCP- Discharge Planning Updated by [email or web address]: Venecia Marquez on 07/19/20 1:[address] Patient Name: JULIO RUDOLPH Admission Status: ER Accout number: [id number] Admission Date: 07-16-2020 : 1955 Admission Diagnosis:SHORTNESS OF BREATH Attending: KAVYA REYES Current LOS: 3 Anticipated DC Date: Planned Disposition: Home with Home Health Primary Insurance: [employer] MEDICARE ADV DC PLAN: Home with [facility] ANTICIPATED DC NEEDS: Declines needs/Sister to transport home CM met with patient to complete initial dc planning assessment. CM educated patient on the CM role and verbal consent given by patient to complete assessment. CM verified patient's address, phone number, and emergency contact phone numbers, she [place] lives at [place] [address], email sent to registration for change. I discussed inpatient rehab, SNF and home health and patient states she will go home with resumption of [facility], NOELLE placed in the MR. Patient denied further known discharge needs at this time. . Transportation provider at discharge will be her sister. CM will continue to follow and assist with discharge planning/needs. Clay Digger: Venecia Marquez DCPIA - Discharge Planning Initial Assessment Updated by [email or web address]: Venecia Marquez on 07/19/20 2:20 pm * Is the patient Alert and Oriented? Yes * How many steps to enter\\exit or inside your home? 0/0 * PCP Dr. Lowry * Pharmacy [place] * Preadmission Environment Home Alone * ADLs Partial Dependent * Partial ADLs (Assistance needed) Ambulation Bathing Dressing Medication Management * Equipment Cane Nebulizer Other Oxygen Shower Chair * Other Equipment Access to wheelchair * List name and contact numbers for known caregivers / representatives who currently or will assist patient after discharge: Eloisa Hebert - mother - [phone] Christiane Pastrana" Villanueva - sister - [phone] * Verbal permission to speak to the caregivers and representatives has been obtained from the patient. Yes * Community resources currently utilized Home Health Private Duty Care * Please name any agencies selected above. [facility] for oxygen DME * Additional services required to return to the preadmission environment? No * Can the patient safely return to the preadmission environment? Yes * Has this patient been hospitalized within the prior 30 days at any hospital? No Last DP export: 07/19/20 1:25 p Patient Name: JULIO RUDOLPH Page [id number] at 1434 All edits/amendments must be made on the electronic document DICTATION DATE: 07/19/201432 FLIGHT INFORMATION EXPEDITER: KEVIN 07/19/201432 RPT#: [id number] DC DATE: STATUS: ADM IN [facility] [address] [place] [address] END OF REPORT
[2020-07-19 15:58] VITALS: BP 164/85
[2020-07-19 20:21] VITALS: BP 172/81
[2020-07-20 04:42] VITALS: BP 154/84
[2020-07-20 09:52] VITALS: BP 152/86
--- NOTE | 2020-07-20 12:26 | MORECARE ---
CASE MANAGEMENT DISCHARGE SUMMARY PATIENT: JULIO RUDOLPH ANN UNIT: [id number] ADM DATE: 07/16/20 AGE: 64 : 59 SEX: F ROOM/BED: D.5628 AUTHOR: GERARDO,DOC PHYSICIAN: REFERRING PHYSICIAN: KAVYA BROWNLEE MD DATE OF SERVICE: 07/20/20 Discharge Plan Patient Name: JULIO RUDOLPH Facility: [facility]:[place] : 1955 Planned Disposition: Home with Home Health Anticipated Discharge Date: Discharge Date: Expected LOS: Initial Reviewer: [email or web address] Initial Review Date: 07/19/2020 Generated: 07/20/20 1:26 pm Comments DCP- Discharge Planning Updated by [email or web address]: Venecia Marquez on 07/19/20 1:[address] Patient Name: JULIO RUDOLPH Admission Status: ER Accout number: [id number] Admission Date: 07-16-2020 : 1955 Admission Diagnosis:SHORTNESS OF BREATH Attending: KAVYA REYES Current LOS: 3 Anticipated DC Date: Planned Disposition: Home with Home Health Primary Insurance: WELL[employer] MEDICARE ADV DC PLAN: Home with [facility] ANTICIPATED DC NEEDS: Declines needs/Sister to transport home CM met with patient to complete initial dc planning assessment. CM educated patient on the CM role and verbal consent given by patient to complete assessment. CM verified patient's address, phone number, and emergency contact phone numbers, she [place] lives at [place] [address], email sent to registration for change. I discussed inpatient rehab, SNF and home health and patient states she will go home with resumption of [facility], NEOLLE placed in the MR. Patient denied further known discharge needs at this time. . Transportation provider at discharge will be her sister. CM will continue to follow and assist with discharge planning/needs. Regulatory Process Manager: Venecia Marquez DCPIA - Discharge Planning Initial Assessment Updated by [email or web address]: Venecia Marquez on 07/19/20 2:20 pm * Is the patient Alert and Oriented? Yes * How many steps to enter\\exit or inside your home? 0/0 * PCP Dr. Lowry * Pharmacy [place] * Preadmission Environment Home Alone * ADLs Partial Dependent * Partial ADLs (Assistance needed) Ambulation Bathing Dressing Medication Management * Equipment Cane Nebulizer Other Oxygen Shower Chair * Other Equipment Access to wheelchair * List name and contact numbers for known caregivers / representatives who currently or will assist patient after discharge: Eloisa Hebert - mother - [phone] Christiane Pastrana" Villanueva - sister - [phone] * Verbal permission to speak to the caregivers and representatives has been obtained from the patient. Yes * Community resources currently utilized Home Health Private Duty Care * Please name any agencies selected above. [facility] for oxygen DME * Additional services required to return to the preadmission environment? No * Can the patient safely return to the preadmission environment? Yes * Has this patient been hospitalized within the prior 30 days at any hospital? No External Providers External Provider: Jose Next Contact Date: Service Request Date: Service Type: Resolution: Reviewer: Comments: Coverage Notice Reviewer: [id number] Solange Marquez Notice Issued Date-Time: 07/19/2020 11:00 Notice Type: Patient Choice Letter Notice Delivered To: Patient Relationship to Patient: Self Aboriginal Home School Liaison Officer Name: Delivery Method: HAND - Hand Delivered Lelia Days: Prior Verbal Notification: Recipient Understood Notice: Yes Recipient Signature: Yes Med Rec Note Co-signed by Attending: Coverage Notice Comment: NOELLE FOR [facility] Reviewer: [email or web address] Solange Marquez Notice Issued Date-Time: 07/19/2020 14:36 Notice Type: IM Discharge Notice Notice Delivered To: Patient Relationship to Patient: Self Aboriginal Home School Liaison Officer Name: Delivery Method: HAND - Hand Delivered Lelia Days: Prior Verbal Notification: Recipient Understood Notice: Yes Recipient Signature: Yes Med Rec Note Co-signed by Attending: Coverage Notice Comment: IMM explained, signed, given, copy placed in MR Last DP export: 07/19/20 1:34 p Patient Name: JULIO RUDOLPH Page [id number] at 1226 All edits/amendments must be made on the electronic document DICTATION DATE: 07/20/20 1226 PLANNER INTERNSHIP: KEVIN 07/20/20 1226 RPT#: [id number] DC DATE: STATUS: ADM IN [facility] [address] [place] [address] END OF REPORT
--- NOTE | 2020-07-20 12:37 | MORECARE ---
CASE MANAGEMENT DISCHARGE SUMMARY PATIENT: JULIO RDUOLPH ANN UNIT: [id number] ADM DATE: 07/16/20 AGE: 64 : 59 SEX: F ROOM/BED: D.1987 AUTHOR: GERARDO,DOC PHYSICIAN: REFERRING PHYSICIAN: KAVYA BROWNLEE MD DATE OF SERVICE: 07/20/20 Discharge Plan Patient Name: JULIO RUDOLPH Facility: [facility]:[place] : 1955 Planned Disposition: Home with Home Health Anticipated Discharge Date: 07/20/20 Discharge Date: Expected LOS: 4 Initial Reviewer: [email or web address] Initial Review Date: 07/19/2020 Generated: 07/20/20 1:36 pm Comments DCP- Discharge Planning Updated by [email or web address]: Belkis Bennett on 07/20/20 11:[address] CM met with the patient to verify that [facility] is her DME provider, she is unsure. CM contacted John, with [facility] and she verifies the patient is a client of theirs. Patient signed a patient choice for [employer] [facility] [employer]. Faxed required information to John for [employer]. DCP- Discharge Planning Updated by [email or web address]: Venecia Marquez on 07/19/20 1:[address] Patient Name: JULIO RUDOPLH Admission Status: ER Accout number: [id number] Admission Date: 07-16-2020 : 1955 Admission Diagnosis:SHORTNESS OF BREATH Attending: KAVYA REYES Current LOS: 3 Anticipated DC Date: Planned Disposition: Home with Home Health Primary Insurance: WE[employer] MEDICARE ADV DC PLAN: Home with [employer] ANTICIPATED DC NEEDS: Declines needs/Sister to transport home CM met with patient to complete initial dc planning assessment. CM educated patient on the CM role and verbal consent given by patient to complete assessment. CM verified patient's address, phone number, and emergency contact phone numbers, she now lives at [phone], email sent to registration for change. I discussed inpatient rehab, SNF and home health and patient states she will go home with resumption of [facility], NOELLE placed in the MR. Patient denied further known discharge needs at this time. . Transportation provider at discharge will be her sister. CM will continue to follow and assist with discharge planning/needs. Dishwashing Machine Operator: Venecia Marquez DCPIA - Discharge Planning Initial Assessment Updated by [email or web address]: Venecia Marquez on 07/19/20 2:20 pm * Is the patient Alert and Oriented? Yes * How many steps to enter\\exit or inside your home? 0/0 * PCP Dr. Lowry * Pharmacy [place] * Preadmission Environment Home Alone * ADLs Partial Dependent * Partial ADLs (Assistance needed) Ambulation Bathing Dressing Medication Management * Equipment Cane Nebulizer Other Oxygen Shower Chair * Other Equipment Access to wheelchair * List name and contact numbers for known caregivers / representatives who currently or will assist patient after discharge: Eloisa Hebert - mother - [phone] Christiane Pastrana" Villanueva - sister - [phone] * Verbal permission to speak to the caregivers and representatives has been obtained from the patient. Yes * Community resources currently utilized Home Health Private Duty Care * Please name any agencies selected above. [facility] for oxygen DME * Additional services required to return to the preadmission environment? No * Can the patient safely return to the preadmission environment? Yes * Has this patient been hospitalized within the prior 30 days at any hospital? No Coverage Notice Reviewer: [email or web address] Solange Marquez Notice Issued Date-Time: 07/19/2020 11:00 Notice Type: Patient Choice Letter Notice Delivered To: Patient Relationship to Patient: Self Residential Housekeeper Name: Delivery Method: HAND - Hand Delivered Lelia Days: Prior Verbal Notification: Recipient Understood Notice: Yes Recipient Signature: Yes Med Rec Note Co-signed by Attending: Coverage Notice Comment: [facility] Reviewer: [email or web address] Solange Marquez Notice Issued Date-Time: 07/19/2020 14:36 Notice Type: IM Discharge Notice Notice Delivered To: Patient Relationship to Patient: Self Residential Housekeeper Name: Delivery Method: HAND - Hand Delivered Lelia Days: Prior Verbal Notification: Recipient Understood Notice: Yes Recipient Signature: Yes Med Rec Note Co-signed by Attending: Coverage Notice Comment: IMM explained, signed, given, copy placed in MR Last DP export: 07/20/20 11:26 a Patient Name: JULIO RUDOLPH Page 12045 at 1237 All edits/amendments must be made on the electronic document DICTATION DATE: 07/20/20 1236 BASEBALL GLOVE STUFFER: KEVIN 07/20/20 1236 RPT#: [id number] DE DATE: STATUS: ADM IN [facility] [address] [place] [address] END OF REPORT
[2020-07-20 12:48] LABS: BASOPHILS 0.5 % (0-2); EOSINOPHILS 5.4 % (0-7); HEMATOCRIT 43.6 % (36.0-48.0); HEMOGLOBIN 13.4 g/dL (12-16); IMMATURE GRANULOCYTES 0.1 % (0-5); LYMPHOCYTES 18.8 % (15-50); MCHC 30.7 g/dL (31.0-37.0); MCV 91.2 fL (80.0-100.0); MEAN PLATELET VOLUME 10.2 fL (7.4-10.4); MONOCYTES 11.8 % (2-11); NEUTROPHILS 63.4 % (40-80); PLATELET COUNT 226 10x3/uL (130-400); RBC 4.78 10x6/uL (4.00-5.40); RDW 14.2 % (11.5-14.5)
[2020-07-20 13:06] LABS: ANION GAP 7.8 mmol/L (8-16); MAGNESIUM - SERUM 1.9 mg/dL (1.8-2.4); PHOSPHOROUS 4.1 mg/dL (2.5-4.9)
[2020-07-20 13:08] LABS: POTASSIUM - SERUM 3.8 mmol/L (3.5-5.1)
--- NOTE | 2020-07-20 13:21 | NUR ---
Nutrition Follow-up: Pt reports good appetite and that she ate >50% of breakfast this AM. Denies N/V/C/D. ST following. Diet: Cardiac, Mech Soft (gravies & sauces) with thin liquids Wt: 175.8# (07/18) Last BM: 07/19 Labs noted: Na 134, Glu 109 Meds noted: Protonix, Florajen, Lasix, electrolyte protocol -Encourage PO intake and honor food preferences within diet restrictions. -Need new wt if possible; noted daily wts ordered. -RD following.
[2020-07-20 14:28] VITALS: BP 124/80
--- NOTE | 2020-07-20 17:08 | MORECARE ---
CASE MANAGEMENT DISCHARGE SUMMARY PATIENT: RENU RUDOLPH ANN UNIT: [id number] ADM DATE: 07/16/20 AGE: 64 : 59 SEX: F ROOM/BED: D.5697 AUTHOR: GERARDO,DOC PHYSICIAN: REFERRING PHYSICIAN: KAVYA BROWNLEE MD DATE OF SERVICE: 07/20/20 Discharge Plan Patient Name: RENU RUDOLPH Facility: [facility]:[place] : 1955 Planned Disposition: Home with Home Health Anticipated Discharge Date: 07/20/20 Discharge Date: Expected LOS: 4 Initial Reviewer: [email or web address] Initial Review Date: 07/19/2020 Generated: 07/20/20 6:08 pm Comments DCP- Discharge Planning Updated by [email or web address]: Belkis Bennett on 07/20/20 4:[address] CM faxed signed order for Trilogy. CM met with the patient to verify that [facility] is her DME provider, she is unsure. CM contacted John, with [facility] and she verifies the patient is a client of theirs. Patient signed a patient choice for [facility] and [facility]. Faxed required information to John for Trilogy. DCP- Discharge Planning Updated by [id number]: Venecia Marquez on 07/19/20 1:[address] Patient Name: RENU RUDOLPH Admission Status: ER Accout number: [id number] Admission Date: 07-16-2020 : 1955 Admission Diagnosis:SHORTNESS OF BREATH Attending: KAVYA REYES Current LOS: 3 Anticipated DC Date: Planned Disposition: Home with Home Health Primary Insurance: [employer] MEDICARE ADV DC PLAN: Home with [facility] ANTICIPATED DC NEEDS: Declines needs/Sister to transport home CM met with patient to complete initial dc planning assessment. CM educated patient on the CM role and verbal consent given by patient to complete assessment. CM verified patient's address, phone number, and emergency contact phone numbers, she now lives at [address], email sent to registration for change. I discussed inpatient rehab, SNF and home health and patient states she will go home with resumption of [facility], NOELLE placed in the MR. Patient denied further known discharge needs at this time. . Transportation provider at discharge will be her sister. CM will continue to follow and assist with discharge planning/needs. Central Office Trouble Shooter: Venecia Marquez DCPIA - Discharge Planning Initial Assessment Updated by [id number]: Venecia Marquez on 07/19/20 2:20 pm * Is the patient Alert and Oriented? Yes * How many steps to enter\\exit or inside your home? 0/0 * PCP Dr. Lowry * Pharmacy [facility] * Preadmission Environment Home Alone * ADLs Partial Dependent * Partial ADLs (Assistance needed) Ambulation Bathing Dressing Medication Management * Equipment Cane Nebulizer Other Oxygen Shower Chair * Other Equipment Access to wheelchair * List name and contact numbers for known caregivers / representatives who currently or will assist patient after discharge: Eloisa Hebert - mother - [phone] Christiane "Sandy" Villanueva - sister - [phone] * Verbal permission to speak to the caregivers and representatives has been obtained from the patient. Yes * Community resources currently utilized Home Health Private Duty Care * Please name any agencies selected above. [facility] [employer] [facility] for oxygen DME * Additional services required to return to the preadmission environment? No * Can the patient safely return to the preadmission environment? Yes * Has this patient been hospitalized within the prior 30 days at any hospital? No Coverage Notice Reviewer: [id number] - Venecia Marquez Notice Issued Date-Time: 07/19/2020 11:00 Notice Type: Patient Choice Letter Notice Delivered To: Patient Relationship to Patient: Self Power Ballast Machine Operator Name: Delivery Method: HAND - Hand Delivered Lelia Days: Prior Verbal Notification: Recipient Understood Notice: Yes Recipient Signature: Yes Med Rec Note Co-signed by Attending: Coverage Notice Comment: [facility]ELLE [facility] Reviewer: [id number] - Venecia Marquez Notice Issued Date-Time: 07/19/2020 14:36 Notice Type: IM Discharge Notice Notice Delivered To: Patient Relationship to Patient: Self Power Ballast Machine Operator Name: Delivery Method: HAND - Hand Delivered Lelia Days: Prior Verbal Notification: Recipient Understood Notice: Yes Recipient Signature: Yes Med Rec Note Co-signed by Attending: Coverage Notice Comment: IMM explained, signed, given, copy placed in MR Reviewer: [id number] Solange Bennett Notice Issued Date-Time: 07/20/2020 12:41 Notice Type: Patient Choice Letter Notice Delivered To: Patient Relationship to Patient: Self Power Ballast Machine Operator Name: Renu Rudolph Delivery Method: HAND - Hand Delivered Lelia Days: Prior Verbal Notification: Recipient Understood Notice: Yes Recipient Signature: Yes Med Rec Note Co-signed by Attending: Coverage Notice Comment: Gloria Moore DP export: 07/20/20 11:37 a Patient Name: RENU RUDOLPH Page [phone] at 1708 All edits/amendments must be made on the electronic document DICTATION DATE: 07/20/201707 SHELTERED WORKSHOP WORKER: KEVIN 07/20/201707 RPT#: [id number] DC DATE: STATUS: ADM IN [facility] [address] [place] [address] END OF REPORT
--- NOTE | 2020-07-20 19:35 | NUR ---
RECEIVED REPORT, ASSUMED CARE, BREATHING EVEN UNLABORED, CALL LIGHT IN REACH, BED LOWEST POSITION, NO S/S OF DISTRESS NOTED, IV PATENT, HELPED UP TO BEDSIDE COMMODE, MINIMAL ASSIST
[2020-07-20 21:41] VITALS: BP 134/76
--- NOTE | 2020-07-21 04:31 | NUR ---
I have reviewed this patient and I concur with the Shift Assessment completed by the Licensed Practical Nurse today this shift.
[2020-07-21 04:40] VITALS: BP 148/72
[2020-07-21 06:55] LABS: EOSINOPHILS 6.3 % (0-7); HEMOGLOBIN 12.7 g/dL (12-16); LYMPHOCYTES 20.4 % (15-50); MCH 28.1 pg (26.0-34.0); MCV 90.7 fL (80.0-100.0); MEAN PLATELET VOLUME 10.7 fL (7.4-10.4); MONOCYTES 11.8 % (2-11); NEUTROPHILS 59.5 % (40-80); RBC 4.52 10x6/uL (4.00-5.40); RDW 14.4 % (11.5-14.5); WBC 6.7 10x3/uL (4.8-10.8)
[2020-07-21 07:22] LABS: PLATELET COUNT 179 10x3/uL (130-400)
[2020-07-21 07:33] LABS: ANION GAP 8.3 mmol/L (8-16); CALCIUM 8.6 mg/dL (8.5-10.1); CARBON DIOXIDE 35.6 mmol/L (21.0-32.0); CREATININE - SERUM 0.9 mg/dL (0.6-1.3); MAGNESIUM - SERUM 2.1 mg/dL (1.8-2.4); PHOSPHOROUS 3.8 mg/dL (2.5-4.9); POTASSIUM - SERUM 3.9 mmol/L (3.5-5.1)
[2020-07-21 08:00] VITALS: BP 149/78
[2020-07-21 10:30] VITALS: BP 147/85
--- NOTE | 2020-07-21 10:55 | MORECARE ---
CASE MANAGEMENT DISCHARGE SUMMARY PATIENT: RENU RUDOLPH ANN UNIT: [id number] ADM DATE: 07/16/20 AGE: 64 : 59 SEX: F ROOM/BED: D.1448 AUTHOR: GERARDODOC PHYSICIAN: REFERRING PHYSICIAN: KAVYA BROWNLEE MD DATE OF SERVICE: 07/21/20 Discharge Plan Patient Name: RENU RUDOLPH Facility: [facility]:[place] : 1955 Planned Disposition: Home with Home Health Anticipated Discharge Date: 07/20/20 Discharge Date: Expected LOS: 4 Initial Reviewer: [email or web address] Initial Review Date: 07/19/2020 Generated: 07/21/20 11:55 am Comments DCP- Discharge Planning Updated by [id number]: Belkis Bennett on 07/20/20 4:[address] CM faxed signed order for Trilogy. CM met with the patient to verify that [facility] is her DME provider, she is unsure. CM contacted John, with [facility] and she verifies the patient is a client of theirs. Patient signed a patient choice for [facility]. Faxed required information to John for Trilogy. DCP- Discharge Planning Updated by [email or web address]: Venecia Marquez on 07/19/20 1:[address] Patient Name: RENU RUDOLPH Admission Status: ER Accout number: [id number] Admission Date: 07-16-2020 : 1955 Admission Diagnosis:SHORTNESS OF BREATH Attending: KAVYA REYES Current LOS: 3 Anticipated DC Date: Planned Disposition: Home with Home Health Primary Insurance: [employer] MEDICARE ADV DC PLAN: Home with [facility] ANTICIPATED DC NEEDS: Declines needs/Sister to transport home CM met with patient to complete initial dc planning assessment. CM educated patient on the CM role and verbal consent given by patient to complete assessment. CM verified patient's address, phone number, and emergency contact phone numbers, she now lives at [address], email sent to registration for change. I discussed inpatient rehab, SNF and home health and patient states she will go home with resumption of [facility], NOELLE placed in the MR. Patient denied further known discharge needs at this time. . Transportation provider at discharge will be her sister. CM will continue to follow and assist with discharge planning/needs. Floor Space Allocator: Venecia Marquez DCPIA - Discharge Planning Initial Assessment Updated by [id number]: Venecia Marquez on 07/19/20 2:20 pm * Is the patient Alert and Oriented? Yes * How many steps to enter\\exit or inside your home? 0/0 * PCP Dr. Lowry * Pharmacy [place] * Preadmission Environment Home Alone * ADLs Partial Dependent * Partial ADLs (Assistance needed) Ambulation Bathing Dressing Medication Management * Equipment Cane Nebulizer Other Oxygen Shower Chair * Other Equipment Access to wheelchair * List name and contact numbers for known caregivers / representatives who currently or will assist patient after discharge: Eloisa Hebert - mother - [phone] Christiane "Sandy" Villanueva - sister - [phone] * Verbal permission to speak to the caregivers and representatives has been obtained from the patient. Yes * Community resources currently utilized Home Health Private Duty Care * Please name any agencies selected above. [facility] [employer] [facility] for oxygen DME * Additional services required to return to the preadmission environment? No * Can the patient safely return to the preadmission environment? Yes * Has this patient been hospitalized within the prior 30 days at any hospital? No Coverage Notice Reviewer: [id number] - Venecia Marquez Notice Issued Date-Time: 07/19/2020 11:00 Notice Type: Patient Choice Letter Notice Delivered To: Patient Relationship to Patient: Self Collections Assistant Name: Delivery Method: HAND - Hand Delivered Lelia Days: Prior Verbal Notification: Recipient Understood Notice: Yes Recipient Signature: Yes Med Rec Note Co-signed by Attending: Coverage Notice Comment: [facility] Reviewer: [id number] - Venecia Marquez Notice Issued Date-Time: 07/19/2020 14:36 Notice Type: IM Discharge Notice Notice Delivered To: Patient Relationship to Patient: Self Collections Assistant Name: Delivery Method: HAND - Hand Delivered Lelia Days: Prior Verbal Notification: Recipient Understood Notice: Yes Recipient Signature: Yes Med Rec Note Co-signed by Attending: Coverage Notice Comment: IMM explained, signed, given, copy placed in MR Reviewer: [id number] Solange Bennett Notice Issued Date-Time: 07/20/2020 12:41 Notice Type: Patient Choice Letter Notice Delivered To: Patient Relationship to Patient: Self Collections Assistant Name: Renu Rudolph Delivery Method: HAND - Hand Delivered Lelia Days: Prior Verbal Notification: Recipient Understood Notice: Yes Recipient Signature: Yes Med Rec Note Co-signed by Attending: Coverage Notice Comment: Gloria Moore DP export: 07/20/20 4:08 p Patient Name: RENU RUDOLPH Page [id number] at 1055 All edits/amendments must be made on the electronic document DICTATION DATE: 07/21/20 105 MANDARIN TEACHER: KEVIN 07/21/20 1055 RPT#: [id number] DC DATE: STATUS: ADM IN [facility] [address] [place] [address] END OF REPORT
--- NOTE | 2020-07-21 11:01 | NUR ---
CALL LIGHT ANSWERED. PT ON BEDSIDE COMMODE. ASSISTED OFF AND BACK TO BED. DENIES FURTHER NEEDS AT THIS TIME. CALL LIGHT WITHIIN REACH. BED IN LOWEST POSITION.
--- NOTE | 2020-07-21 13:50 | MORECARE ---
CASE MANAGEMENT DISCHARGE SUMMARY PATIENT: RENU RUDOLPH ANN UNIT: [id number] ADM DATE: 07/16/20 AGE: 64 : 59 SEX: F ROOM/BED: D.7692 AUTHOR: DEBBIE CARRLILO PHYSICIAN: REFERRING PHYSICIAN: KAVYA BROWNLEE MD DATE OF SERVICE: 07/21/20 Discharge Plan Patient Name: RENU RUDOLPH Facility: [facility]:[place] : 1955 Planned Disposition: Home with Home Health Anticipated Discharge Date: 07/20/20 Discharge Date: Expected LOS: 4 Initial Reviewer: [email or web address] Initial Review Date: 07/19/2020 Generated: 07/21/20 2:49 pm Comments DCP- Discharge Planning Updated by [id number]: Belkis Bennett on 07/21/20 12:[address] CM contacted John, with [facility], regarding Trilogy. Per John, Gloria can deliver the Trilogy to the patient's home after DC today. Gloria will need to be notified when the patient leaves the facility, so they know when to meet her at her apartment. Patient's address: [facility]: [address] [place] [address], [place] [address], . Phone number: [phone]. DCP- Discharge Planning Updated by [id number]: Belkis Bennett on 07/20/20 4:[address] CM faxed signed order for Trilogy. SARA met with the patient to verify that Gloria is her DME provider, she is unsure. CM contacted John, with [facility] and she verifies the patient is a client of theirs. Patient signed a patient choice for [facility] and [facility]. Faxed required information to John for Trilogy. DCP- Discharge Planning Updated by [email or web address]: Venecia Marquez on 07/19/20 1:[address] Patient Name: RENU RUDOLPH Admission Status: ER Accout number: [id number] Admission Date: 07-16-2020 : 1955 Admission Diagnosis:SHORTNESS OF BREATH Attending: KAVYA REYES Current LOS: 3 Anticipated DC Date: Planned Disposition: Home with Home Health Primary Insurance: [employer] MEDICARE ADV DC PLAN: Home with [facility] ANTICIPATED DC NEEDS: Declines needs/Sister to transport home CM met with patient to complete initial dc planning assessment. CM educated patient on the CM role and verbal consent given by patient to complete assessment. CM verified patient's address, phone number, and emergency contact phone numbers, she now lives at [address], email sent to registration for change. I discussed inpatient rehab, SNF and home health and patient states she will go home with resumption of [facility], NOELLE placed in the MR. Patient denied further known discharge needs at this time. . Transportation provider at discharge will be her sister. CM will continue to follow and assist with discharge planning/needs. Assistant Counsel: Venecia Marquez DCPIA - Discharge Planning Initial Assessment Updated by [id number]: Venecia Marquez on 07/19/20 2:20 pm * Is the patient Alert and Oriented? Yes * How many steps to enter\\exit or inside your home? 0/0 * PCP Dr. Lowry * Pharmacy [place] * Preadmission Environment Home Alone * ADLs Partial Dependent * Partial ADLs (Assistance needed) Ambulation Bathing Dressing Medication Management * Equipment Cane Nebulizer Other Oxygen Shower Chair * Other Equipment Access to wheelchair * List name and contact numbers for known caregivers / representatives who currently or will assist patient after discharge: Eloisa Hebert - mother - [phone] Christiane "Sandy" Villanueva - sister - [phone] * Verbal permission to speak to the caregivers and representatives has been obtained from the patient. Yes * Community resources currently utilized Home Health Private Duty Care * Please name any agencies selected above. [facility] [employer] [facility] for oxygen DME * Additional services required to return to the preadmission environment? No * Can the patient safely return to the preadmission environment? Yes * Has this patient been hospitalized within the prior 30 days at any hospital? No Coverage Notice Reviewer: [id number] Solange Bennett Notice Issued Date-Time: 07/20/2020 12:41 Notice Type: Patient Choice Letter Notice Delivered To: Patient Relationship to Patient: Self Executive Compensation Analyst Name: Renu Rduolph Delivery Method: HAND - Hand Delivered Lelia Days: Prior Verbal Notification: Recipient Understood Notice: Yes Recipient Signature: Yes Med Rec Note Co-signed by Attending: Coverage Notice Comment: [facility] Moore Reviewer: [id number] Solange Marquez Notice Issued Date-Time: 07/19/2020 11:00 Notice Type: Patient Choice Letter Notice Delivered To: Patient Relationship to Patient: Self Executive Compensation Analyst Name: Delivery Method: HAND - Hand Delivered Lelia Days: Prior Verbal Notification: Recipient Understood Notice: Yes Recipient Signature: Yes Med Rec Note Co-signed by Attending: Coverage Notice Comment: [facility]ELLE [facility] Reviewer: [id number] Solange Marquez Notice Issued Date-Time: 07/19/2020 14:36 Notice Type: IM Discharge Notice Notice Delivered To: Patient Relationship to Patient: Self Executive Compensation Analyst Name: Delivery Method: HAND - Hand Delivered Lelia Days: Prior Verbal Notification: Recipient Understood Notice: Yes Recipient Signature: Yes Med Rec Note Co-signed by Attending: Coverage Notice Comment: IMM explained, signed, given, copy placed in MR Last DP export: 07/21/20 9:55 a Patient Name: RENU RUDOLPH Page [id number] at 1350 All edits/amendments must be made on the electronic document DICTATION DATE: 07/21/20 1349 TRADE MARK ATTORNEY: KEVIN 07/21/20 1349 RPT#: [id number] DC DATE: STATUS: ADM IN [facility] [address] [place] [address] END OF REPORT
--- NOTE | 2020-07-21 14:05 | MORECARE ---
CASE MANAGEMENT DISCHARGE SUMMARY PATIENT: RENU RUDOLPH ANN UNIT: [id number] ADM DATE: 07/16/20 AGE: 64 : 59 SEX: F ROOM/BED: D.0310 AUTHOR: GERARDO,DOC PHYSICIAN: REFERRING PHYSICIAN: KAVYA BROWNLEE MD DATE OF SERVICE: 07/21/20 Discharge Plan Patient Name: RENU RUDOLPH Facility: [facility]:[place] : 1955 Planned Disposition: Home with Home Health Anticipated Discharge Date: 07/20/20 Discharge Date: Expected LOS: 4 Initial Reviewer: [id number] Initial Review Date: 07/19/2020 Generated: 07/21/20 3:04 pm Comments DCP- Discharge Planning Updated by [email or web address]: Belkis Bennett on 07/21/20 1:[address] CM contacted John, with [facility], regarding Trilogy. Per John, Gloria can deliver the Trilogy to the patient's home after DC today. Gloria will need to be notified when the patient leaves the facility, so they know when to meet her at her apartment. Patient's address: [facility]: [address] [place] [address], [place] [address], . Phone number: [phone]. SARA notified Odin of same. DCP- Discharge Planning Updated by [id number]: Belkis Bennett on 07/20/20 4:[address] CM faxed signed order for Trilogy. SARA met with the patient to verify that [facility] is her DME provider, she is unsure. CM contacted John, with [facility] and she verifies the patient is a client of theirs. Patient signed a patient choice for [facility] and [facility]. Faxed required information to John for Trilogy. DCP- Discharge Planning Updated by [email or web address]: Venecia Marquez on 07/19/20 1:[address] Patient Name: RENU RUDOLPH Admission Status: ER Accout number: [id number] Admission Date: 07-16-2020 : 1955 Admission Diagnosis:SHORTNESS OF BREATH Attending: KAVYA REYES Current LOS: 3 Anticipated DC Date: Planned Disposition: Home with Home Health Primary Insurance: [employer] MEDICARE ADV DC PLAN: Home with [facility] ANTICIPATED DC NEEDS: Declines needs/Sister to transport home CM met with patient to complete initial dc planning assessment. CM educated patient on the CM role and verbal consent given by patient to complete assessment. CM verified patient's address, phone number, and emergency contact phone numbers, she now lives at [address], email sent to registration for change. I discussed inpatient rehab, SNF and home health and patient states she will go home with resumption of [facility], NOELLE placed in the MR. Patient denied further known discharge needs at this time. . Transportation provider at discharge will be her sister. CM will continue to follow and assist with discharge planning/needs. Platform Man: Venecia Marquez DCPIA - Discharge Planning Initial Assessment Updated by [email or web address]: Venecia Marquez on 07/19/20 2:20 pm * Is the patient Alert and Oriented? Yes * How many steps to enter\\exit or inside your home? 0/0 * PCP Dr. Lowry * Pharmacy [place] * Preadmission Environment Home Alone * ADLs Partial Dependent * Partial ADLs (Assistance needed) Ambulation Bathing Dressing Medication Management * Equipment Cane Nebulizer Other Oxygen Shower Chair * Other Equipment Access to wheelchair * List name and contact numbers for known caregivers / representatives who currently or will assist patient after discharge: Eloisa Hebert - mother - [phone] Christiane Pastrana" Villanueva - sister - [phone] * Verbal permission to speak to the caregivers and representatives has been obtained from the patient. Yes * Community resources currently utilized Home Health Private Duty Care * Please name any agencies selected above. [facility] for oxygen DME * Additional services required to return to the preadmission environment? No * Can the patient safely return to the preadmission environment? Yes * Has this patient been hospitalized within the prior 30 days at any hospital? No Coverage Notice Reviewer: [id number] - Venecia Marquez Notice Issued Date-Time: 07/19/2020 14:36 Notice Type: IM Discharge Notice Notice Delivered To: Patient Relationship to Patient: Self Airport Baggage Screener Name: Delivery Method: HAND - Hand Delivered Lelia Days: Prior Verbal Notification: Recipient Understood Notice: Yes Recipient Signature: Yes Med Rec Note Co-signed by Attending: Coverage Notice Comment: IMM explained, signed, given, copy placed in MR Reviewer: [id number] Solange Bennett Notice Issued Date-Time: 07/20/2020 12:41 Notice Type: Patient Choice Letter Notice Delivered To: Patient Relationship to Patient: Self Airport Baggage Screener Name: Reun Rudolph Delivery Method: HAND - Hand Delivered Lelia Days: Prior Verbal Notification: Recipient Understood Notice: Yes Recipient Signature: Yes Med Rec Note Co-signed by Attending: Coverage Notice Comment: [facility] Moore Reviewer: [id number] Solange Marquez Notice Issued Date-Time: 07/19/2020 11:00 Notice Type: Patient Choice Letter Notice Delivered To: Patient Relationship to Patient: Self Airport Baggage Screener Name: Delivery Method: HAND - Hand Delivered Lelia Days: Prior Verbal Notification: Recipient Understood Notice: Yes Recipient Signature: Yes Med Rec Note Co-signed by Attending: Coverage Notice Comment: [facility] Last DP export: 07/21/20 12:50 p Patient Name: RENU RUDOLPH Page [phone] at 1405 All edits/amendments must be made on the electronic document DICTATION DATE: 07/21/20 1404 UNARMED SECURITY GUARD: DM 07/21/20 1404 RPT#: [id number] DC DATE: STATUS: ADM IN [facility] [address] [place] [address] END OF REPORT
[2020-07-21] MEDS ORDERED: NICODERM CQ1 EAC3 TRANSDERM (14:29)
[2020-07-21] MEDS ORDERED: ZITHROMAX500 MG PO (14:30)
[2020-07-21] MEDS ORDERED: OMNICEF300 MG PO (14:30)
[2020-07-21] MEDS ORDERED: TESSALON PERLE100 MG PO (14:30)
[2020-07-21] MEDS ORDERED: MUCINEX DM ER1 EAC1 PO (14:30)
--- NOTE | 2020-07-21 14:58 | NUR ---
OFFERED PT REFERRAL TO [facility]. SHE STATES SHE ALREADY HAS BEEN REFERRED.
--- NOTE | 2020-07-21 15:05 | NUR ---
PT'S PHARMACY CLOSED FOR WEEKEND. PT REQUESTED RX'S TO BE CALLED TO [facility]. SPOKE WITH MAHENDRA, PHARMACIST.
--- NOTE | 2020-07-21 15:21 | NUR ---
I have reviewed this patient and I concur with the Shift Assessment completed by the Licensed Practical Nurse today this shift.
--- NOTE | 2020-07-21 15:32 | MORECARE ---
CASE MANAGEMENT DISCHARGE SUMMARY PATIENT: RENU RUDOLPH ANN UNIT: [id number] ADM DATE: 07/16/20 AGE: 64 : 59 SEX: F ROOM/BED: D.7601 AUTHOR: GERARDO,DOC PHYSICIAN: REFERRING PHYSICIAN: KAVYA BROWNLEE MD DATE OF SERVICE: 07/21/20 Discharge Plan Patient Name: RENU RUDOLPH Facility: [facility]:[place] : 1955 Planned Disposition: Home with Home Health Anticipated Discharge Date: 07/20/20 Discharge Date: Expected LOS: 4 Initial Reviewer: [email or web address] Initial Review Date: 07/19/2020 Generated: 07/21/20 4:31 pm Comments DCP- Discharge Planning Updated by [email or web address]: Belkis Bennett on 07/21/20 1:[address] CM contacted John, with [facility], regarding Trilogy. Per John, [facility] can deliver the Trilogy to the patient's home after DC today. [facility] will need to be notified when the patient leaves the facility, so they know when to meet her at her apartment. Patient's address: [facility]: [address] [place] [address], [place] [address], . Phone number: [phone]. SARA notified Odin of same. DCP- Discharge Planning Updated by [id number]: Belkis Bennett on 07/20/20 4:[address] CM faxed signed order for Trilogy. SARA met with the patient to verify that [facility] is her DME provider, she is unsure. CM contacted John, with [facility] and she verifies the patient is a client of theirs. Patient signed a patient choice for [facility] and [facility]. Faxed required information to John for Trilogy. DCP- Discharge Planning Updated by [id number]: Venecia Marquez on 07/19/20 1:[address] Patient Name: RENU RUDOLPH Admission Status: ER Accout number: [id number] Admission Date: 07-16-2020 : 1955 Admission Diagnosis:SHORTNESS OF BREATH Attending: KAVYA REYES Current LOS: 3 Anticipated DC Date: Planned Disposition: Home with Home Health Primary Insurance: [employer] MEDICARE ADV DC PLAN: Home with [facility] ANTICIPATED DC NEEDS: Declines needs/Sister to transport home CM met with patient to complete initial dc planning assessment. CM educated patient on the CM role and verbal consent given by patient to complete assessment. CM verified patient's address, phone number, and emergency contact phone numbers, she now lives at [address], email sent to registration for change. I discussed inpatient rehab, SNF and home health and patient states she will go home with resumption of [facility], NOELLE placed in the MR. Patient denied further known discharge needs at this time. . Transportation provider at discharge will be her sister. CM will continue to follow and assist with discharge planning/needs. Air Traffic Control Equipment Repairer: Venecia Marquez DCPIA - Discharge Planning Initial Assessment Updated by [email or web address]: Venecia Marquez on 07/19/20 2:20 pm * Is the patient Alert and Oriented? Yes * How many steps to enter\\exit or inside your home? 0/0 * PCP Dr. Lowry * Pharm[facility] * Preadmission Environment Home Alone * ADLs Partial Dependent * Partial ADLs (Assistance needed) Ambulation Bathing Dressing Medication Management * Equipment Cane Nebulizer Other Oxygen Shower Chair * Other Equipment Access to wheelchair * List name and contact numbers for known caregivers / representatives who currently or will assist patient after discharge: Eloisa Hebert - mother - [phone] Christiane Pastrana" Villanueva - sister - [phone] * Verbal permission to speak to the caregivers and representatives has been obtained from the patient. Yes * Community resources currently utilized Home Health Private Duty Care * Please name any agencies selected above. [facility] for oxygen D[facility] * Additional services required to return to the preadmission environment? No * Can the patient safely return to the preadmission environment? Yes * Has this patient been hospitalized within the prior 30 days at any hospital? No External Providers External Provider: [facility] Next Contact Date: Service Request Date: Service Type: Resolution: Reviewer: Comments: Coverage Notice Reviewer: [email or web address] - Venecia Marquez Notice Issued Date-Time: 07/19/2020 14:36 Notice Type: IM Discharge Notice Notice Delivered To: Patient Relationship to Patient: Self Supervisor [employer] Name: Delivery Method: HAND - Hand Delivered Lelia Days: Prior Verbal Notification: Recipient Understood Notice: Yes Recipient Signature: Yes Med Rec Note Co-signed by Attending: Coverage Notice Comment: IMM explained, signed, given, copy placed in MR Reviewer: [id number] Solange Bennett Notice Issued Date-Time: 07/20/2020 12:41 Notice Type: Patient Choice Letter Notice Delivered To: Patient Relationship to Patient: Self Supervisor [employer] Name: Renu Rudolph Delivery Method: HAND - Hand Delivered Lelia Days: Prior Verbal Notification: Recipient Understood Notice: Yes Recipient Signature: Yes Med Rec Note Co-signed by Attending: Coverage Notice Comment: [facility] Reviewer: [id number] Solange Marquez Notice Issued Date-Time: 07/19/2020 11:00 Notice Type: Patient Choice Letter Notice Delivered To: Patient Relationship to Patient: Self Supervisor [employer] Name: Delivery Method: HAND - Hand Delivered Lelia Days: Prior Verbal Notification: Recipient Understood Notice: Yes Recipient Signature: Yes Med Rec Note Co-signed by Attending: Coverage Notice Comment: [facility]LE [facility] Last DP export: 07/21/20 1:05 p Patient Name: RENU RUDOLPH Page [id number] at 1532 All edits/amendments must be made on the electronic document DICTATION DATE: 07/21/20 153 PILLOW FILLER: KEVIN 07/21/20 153 RPT#: [id number] DC DATE: STATUS: ADM IN [facility] [address] [place] [address] END OF REPORT
--- NOTE | 2020-07-21 16:34 | MORECARE ---
CASE MANAGEMENT DISCHARGE SUMMARY PATIENT: RENU RUDOLPH ANN UNIT: [id number] ADM DATE: 07/16/20 AGE: 64 : 59 SEX: F ROOM/BED: D.9362 AUTHOR: DEBBIE CARRILLO PHYSICIAN: REFERRING PHYSICIAN: KAVYA BROWNLEE MD DATE OF SERVICE: 07/21/20 Discharge Plan Patient Name: RENU RUDOLPH Facility: [facility]:[place] : 1955 Planned Disposition: Home with Home Health Anticipated Discharge Date: 07/20/20 Discharge Date: Expected LOS: 4 Initial Reviewer: [id number] Initial Review Date: 07/19/2020 Generated: 07/21/20 5:34 pm Comments DCP- Discharge Planning Updated by [email or web address]: Austyn Bowling on 07/21/20 3:[address] Patient Name: RENU RUDOLPH Encounter No: [id number] : 1955 Primary Insurance: [employer] MEDICARE ADV Anticipated DC Date: 07-20-2020 Planned Disposition: Home with Home Health External Planned Provider: : DCP follow-up note: Spoke with John at [facility] regarding the addition of a nebulizer per Alba Ferrell APN. Nebulizer will be delivered to home with trilogy. CM will continue to follow and will assist as needed with dc plans/needs. Spoke with Sivan at [facility] for resumption of care and faxed records to [phone]. CM will continue to follow and will assist as needed with dc plans/needs. Austyn Bowling DCP- Discharge Planning Updated by [id number]: Belkis Bennett on 07/21/20 1:[address] CM contacted John, with [facility], regarding Trilogy. Per oJhn [facility] can deliver the Trilogy to the patient's home after DC today. [facility] will need to be notified when the patient leaves the facility, so they know when to meet her at her apartment. Patient's address: [facility]: [address] [place] [address], [place] [address], . Phone number: [phone]. CM notified Odin of same. DCP- Discharge Planning Updated by [email or web address]: Belkis Bennett on 07/20/20 4:[address] CM faxed signed order for Trilogy. CM met with the patient to verify that [facility] is her DME provider, she is unsure. CM contacted John, with [facility] and she verifies the patient is a client of theirs. Patient signed a patient choice for [facility]. Faxed required information to John for Trilogy. DCP- Discharge Planning Updated by [id number]: Venecia Marquez on 07/19/20 1:[address] Patient Name: RENU RUDOLPH Admission Status: ER Accout number: [id number] Admission Date: 07-16-2020 : 1955 Admission Diagnosis:SHORTNESS OF BREATH Attending: KAVYA REYES Current LOS: 3 Anticipated DC Date: Planned Disposition: Home with Home Health Primary Insurance: [employer] MEDICARE ADV DC PLAN: Home with [facility] ANTICIPATED DC NEEDS: Declines needs/Sister to transport home CM met with patient to complete initial dc planning assessment. CM educated patient on the CM role and verbal consent given by patient to complete assessment. CM verified patient's address, phone number, and emergency contact phone numbers, she now lives at [place] [address], email sent to registration for change. I discussed inpatient rehab, SNF and home health and patient states she will go home with resumption of [facility], NOELLE placed in the MR. Patient denied further known discharge needs at this time. . Transportation provider at discharge will be her sister. CM will continue to follow and assist with discharge planning/needs. Trucker Hand: Venecia Marquez DCPIA - Discharge Planning Initial Assessment Updated by [id number]: Venecia Marquez on 07/19/20 2:20 pm * Is the patient Alert and Oriented? Yes * How many steps to enter\\exit or inside your home? 0/0 * PCP Dr. Lowry * [facility] * Preadmission Environment Home Alone * ADLs Partial Dependent * Partial ADLs (Assistance needed) Ambulation Bathing Dressing Medication Management * Equipment Cane Nebulizer Other Oxygen Shower Chair * Other Equipment Access to wheelchair * List name and contact numbers for known caregivers / representatives who currently or will assist patient after discharge: Eloisa Hebert - mother - [phone] Christiane Pastrana" Villanueva - sister - [phone] * Verbal permission to speak to the caregivers and representatives has been obtained from the patient. Yes * Community resources currently utilized Home Health Private Duty Care * Please name any agencies selected above. [facility] for oxygen DME * Additional services required to return to the preadmission environment? No * Can the patient safely return to the preadmission environment? Yes * Has this patient been hospitalized within the prior 30 days at any hospital? No Coverage Notice Reviewer: [id number] Solange Marquez Notice Issued Date-Time: 07/19/2020 14:36 Notice Type: IM Discharge Notice Notice Delivered To: Patient Relationship to Patient: Self Acid Maker Name: Delivery Method: HAND - Hand Delivered Lelia Days: Prior Verbal Notification: Recipient Understood Notice: Yes Recipient Signature: Yes Med Rec Note Co-signed by Attending: Coverage Notice Comment: IMM explained, signed, given, copy placed in MR Reviewer: [id number] Solange Bennett Notice Issued Date-Time: 07/20/2020 12:41 Notice Type: Patient Choice Letter Notice Delivered To: Patient Relationship to Patient: Self Acid Maker Name: Renu Elder Zachdheerajdeven Delivery Method: HAND - Hand Delivered Lelia Days: Prior Verbal Notification: Recipient Understood Notice: Yes Recipient Signature: Yes Med Rec Note Co-signed by Attending: Coverage Notice Comment: [facility] Reviewer: [id number] Marquez Notice Issued Date-Time: 07/19/2020 11:00 Notice Type: Patient Choice Letter Notice Delivered To: Patient Relationship to Patient: Self Acid Maker Name: Delivery Method: HAND - Hand Delivered Lelia Days: Prior Verbal Notification: Recipient Understood Notice: Yes Recipient Signature: Yes Med Rec Note Co-signed by Attending: Coverage Notice Comment: NOELLE [facility] Last DP export: 07/21/20 2:32 p Patient Name: RENU RUDOLPH Page 80112 at 1634 All edits/amendments must be made on the electronic document DICTATION DATE: 07/21/201633 MELLOWING MACHINE OPERATOR: KEVIN 07/21/201633 RPT#: [id number] DC DATE: STATUS: ADM IN [facility] [address] [place] [address] END OF REPORT
--- NOTE | 2020-07-21 18:55 | NUR ---
D/C INSTRUCTIONS REVIEWED WITH PT, VERBALIZED UNDERSTANDING. IV D/C WITH CATHETER TIP INTACT. LEFT VIA WHEELCHAIR WITH ALL BELONGINGS
[2020-07-22 03:06] LABS: IMMUNOGLOBULIN E 33 IU/mL (6-495)
--- NOTE | 2020-07-23 09:24 | MORECARE ---
CASE MANAGEMENT DISCHARGE SUMMARY PATIENT: RENU RUDOLPH ANN UNIT: [id number] ADM DATE: 07/16/20 AGE: 64 : 59 SEX: F ROOM/BED: D.6809 AUTHOR: DEBBIE CARRILLO PHYSICIAN: REFERRING PHYSICIAN: KAVYA BROWNLEE MD DATE OF SERVICE: 07/23/20 Discharge Plan Patient Name: RENU RUDOLPH Facility: [facility]:[place] : 1955 Planned Disposition: Home with Home Health Anticipated Discharge Date: 07/20/20 Discharge Date: 07/21/2020 Expected LOS: 4 Initial Reviewer: [email or web address] Initial Review Date: 07/19/2020 Generated: 07/23/20 10:24 am Comments DCP- Discharge Planning Updated by [email or web address]: Austyn Bowling on 07/21/20 3:[address] Patient Name: RENU RUDOLPH Encounter No: [id number] : 1955 Primary Insurance: [employer] MEDICARE ADV Anticipated DC Date: 07-20-2020 Planned Disposition: Home with Home Health External Planned Provider: : DCP follow-up note: Spoke with John at [facility] regarding the addition of a nebulizer per Alba Ferrell APN. Nebulizer will be delivered to home with trilogy. CM will continue to follow and will assist as needed with dc plans/needs. Spoke with Sivan at [facility] for resumption of care and faxed records to [phone]. CM will continue to follow and will assist as needed with dc plans/needs. Austyn Bowling DCP- Discharge Planning Updated by [email or web address]: Belkis Bennett on 07/21/20 1:[address] CM contacted John, with [facility], regarding Trilogy[facility] facility, so they know when to meet her at her apartment. Patient's address: [facility]: [address] [place] [address], [place] [address], . Phone number: [phone]. CM notified Odin of same. DCP- Discharge Planning Updated by [email or web address]: Belkis Bennett on 07/20/20 4:[address] CM faxed signed order for Trilogy. CM met with the patient to verify that [facility] is her DME provider, she is unsure. CM contacted John, with [facility] and she verifies the patient is a client of theirs. Patient signed a patient choice for [facility]. Faxed required information to John for Trilogy. DCP- Discharge Planning Updated by [id number]: Venecia Marquez on 07/19/20 1:[address] Patient Name: RENU RUDOLPH Admission Status: ER Accout number: [id number] Admission Date: 07-16-2020 : 1955 Admission Diagnosis:SHORTNESS OF BREATH Attending: KAVYA REYES Current LOS: 3 Anticipated DC Date: Planned Disposition: Home with Home Health Primary Insurance: [employer] MEDICARE ADV DC PLAN: Home with [facility] ANTICIPATED DC NEEDS: Declines needs/Sister to transport home CM met with patient to complete initial dc planning assessment. CM educated patient on the CM role and verbal consent given by patient to complete assessment. CM verified patient's address, phone number, and emergency contact phone numbers, she now lives at [address] [facility], email sent to registration for change. I discussed inpatient rehab, SNF and home health and patient states she will go home with resumption of [facility], NOELLE placed in the MR. Patient denied further known discharge needs at this time. . Transportation provider at discharge will be her sister. CM will continue to follow and assist with discharge planning/needs. Surgical Resident: Venecia Marquez DCPIA - Discharge Planning Initial Assessment Updated by [id number]: Venecia Marquez on 07/19/20 2:20 pm * Is the patient Alert and Oriented? Yes * How many steps to enter\\exit or inside your home? 0/0 * PCP Dr. Lowry * [facility] * Preadmission Environment Home Alone * ADLs Partial Dependent * Partial ADLs (Assistance needed) Ambulation Bathing Dressing Medication Management * Equipment Cane Nebulizer Other Oxygen Shower Chair * Other Equipment Access to wheelchair * List name and contact numbers for known caregivers / representatives who currently or will assist patient after discharge: Eloisa Hebert - mother - [phone] Christiane Pastrana" Villanueva - sister - [phone] * Verbal permission to speak to the caregivers and representatives has been obtained from the patient. Yes * Community resources currently utilized Home Health Private Duty Care * Please name any agencies selected above. [facility] for oxygen DME * Additional services required to return to the preadmission environment? No * Can the patient safely return to the preadmission environment? Yes * Has this patient been hospitalized within the prior 30 days at any hospital? No Coverage Notice Reviewer: [id number] Solange Marquez Notice Issued Date-Time: 07/19/2020 11:00 Notice Type: Patient Choice Letter Notice Delivered To: Patient Relationship to Patient: Self Roll Plugger Name: Delivery Method: HAND - Hand Delivered Lelia Days: Prior Verbal Notification: Recipient Understood Notice: Yes Recipient Signature: Yes Med Rec Note Co-signed by Attending: Coverage Notice Comment: NOELLE FOR [facility] Reviewer: [id number] Solange Marquez Notice Issued Date-Time: 07/19/2020 14:36 Notice Type: IM Discharge Notice Notice Delivered To: Patient Relationship to Patient: Self Roll Plugger Name: Delivery Method: HAND - Hand Delivered Lelia Days: Prior Verbal Notification: Recipient Understood Notice: Yes Recipient Signature: Yes Med Rec Note Co-signed by Attending: Coverage Notice Comment: IMM explained, signed, given, copy placed in MR Reviewer: [id number] Solange Bennett Notice Issued Date-Time: 07/20/2020 12:41 Notice Type: Patient Choice Letter Notice Delivered To: Patient Relationship to Patient: Self Roll Plugger Name: Renu Rudolph Delivery Method: HAND - Hand Delivered Lelia Days: Prior Verbal Notification: Recipient Understood Notice: Yes Recipient Signature: Yes Med Rec Note Co-signed by Attending: Coverage Notice Comment: [facility] Last DP export: 07/21/20 3:34 p Patient Name: RENU RUDOLPH Page 23543 at 0924 All edits/amendments must be made on the electronic document DICTATION DATE: 07/23/20923 TRUCK CATERER: KEVIN 07/23/20923 RPT#: [id number] DC DATE:07/21/20 STATUS: DIS IN [place] [id number] [place] [address] END OF REPORT
== END 2020-07-21 18:56 | disposition home health service (06) | DRG 193 ==
LOC: D.ER 15:39 → D.M2 22:42 → D.EDHOLD 22:42 → D.M2 07-18 07:40
PROVIDERS: Emergency Medicine; Family Medicine; Internal Medicine Pulmonary Disease; ADMIT Family Medicine Adult Medicine; ATTEND Family Medicine Adult Medicine
PROC: 5A09457 Assistance with Respiratory Ventilation, 24-96 Consecutive Hours, Continuous Positive Airway Pressure (ICD-10-PCS; principal; 2020-07-17)
DX: J18.9 Pneumonia, unspecified organism (principal); J96.22 Acute and chronic respiratory failure with hypercapnia; G93.41 Metabolic encephalopathy; I50.33 Acute on chronic diastolic (congestive) heart failure; F17.203 Nicotine dependence unspecified, with withdrawal; J44.1 Chronic obstructive pulmonary disease with (acute) exacerbation; J44.0 Chronic obstructive pulmonary disease with (acute) lower respiratory infection; I11.0 Hypertensive heart disease with heart failure; E03.9 Hypothyroidism, unspecified; K21.9 Gastro-esophageal reflux disease without esophagitis; F41.8 Other specified anxiety disorders; G89.29 Other chronic pain; Z86.73 Personal history of transient ischemic attack (TIA), and cerebral infarction without residual deficits